=== PATIENT | male | born 1960 | race Caucasian/White ===

== ENCOUNTER 2018-04-02 20:59 | Emergency (ER) | payer MEDICARE, MEDICAID, SELFPAY ==
[2018-04-02] VITALS (19 sets, daily range): BP systolic 141–155; BP diastolic 75–88; PULSE 100–110; RESP 13–38; TEMP 36.8–36.9; O2SAT 96–99
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
[2018-04-02 21:28] LABS: Abs Immature Grans 0.03 k/cumm (0.0-0.09); Absolute Basophil Count 0.14 k/cumm (0.0-0.2); Absolute Eosinophil Count 0.16 k/cumm (0.0-0.7); Basophils % 0.9; HCT 27.2 % (40.0-50.0); HGB 8.6 g/dL (13.5-17.5); Immature Grans % 0.2; Lymphocytes % 11.8; Mean Corp. HGB Concentration 31.6 g/dL (32.0-36.0); Mean Corpuscular Volume 85.5 fL (80-95); Mean Platelet Volume 9.3 fL (8.0-11.0); Monocytes % 7.7; Neutrophils % 78.4; Platelet Count 534 x1000/uL (130-400); RBC 3.18 m/cumm (4.50-6.00); RBC Distribution Width 18.9 % (11.8-14.1); White Blood Cell Count 15.91 k/cumm (4.4-10.8)
[2018-04-02 21:29] LABS: Absolute Lymphocyte Count 1.88 k/cumm (1.2-3.4); Absolute Monocyte Count 1.23 k/cumm (0.11-0.7); Absolute Neutrophil Count 12.47 k/cumm (1.2-6.7)
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
[2018-04-02 21:56] LABS: INR 1.1 (1.0-3.5); PTT Activated 25.2 sec (21.0-31.4); Prothrombin Time 10.9 sec (9.3-10.8)
[2018-04-02 22:32] LABS: ALT 15 U/L (12-78); AST 20 U/L (15-37); Alkaline Phosphatase 165 U/L (46-116); BUN 22 mg/dL (7-18); Bilirubin, Total 0.1 mg/dL (0.2-1.0); Chloride 100 mmol/L (98-107); Estimated GFR 13.12 (mL/min/1.73m2); Glucose 97 mg/dL (70-100); Magnesium 2.5 mg/dL (1.8-2.4); Potassium 3.7 mmol/L (3.5-5.1); Sodium 138 mmol/L (136-145); Total Protein 8.1 g/dL (6.4-8.2)
[2018-04-02 22:39] LABS: CREATININE 4.65 mg/dL (0.70-1.30)
--- NOTE | 2018-04-03 15:28 | PDOC.ERCMPRO ---
Care Management Progress Note 04/03-Dr. Root requested assistance with a PCP f/u in one week for anxiety. Referral faxed to [facility] today.
== END 2018-04-02 23:04 | disposition home or self-care (01) ==
PROVIDERS: Emergency Provider Emergency Medicine; PCP Family Medicine
DX: F41.9 Anxiety disorder, unspecified (principal); R11.0 Nausea; G82.20 Paraplegia, unspecified
CPT/HCPCS: 99283 ×2; 36415; 80053; 83735; 85025; 85610; 85730

== ENCOUNTER 2018-04-11 13:36 | Emergency (ER) | payer MEDICARE, MEDICAID, SELFPAY ==
[2018-04-11] VITALS (53 sets, daily range): BP systolic 94–133; BP diastolic 55–84; PULSE 98–108; RESP 7–27; TEMP 36.7–37.2; O2SAT 97–100
--- NOTE | 2018-04-11 14:07 | DI.REPORT_ITS ---
SYMPTOMS/DIAGNOSIS: ALTERED MENTATION AP AND LATERAL CHEST: Note is made of Hernandez rods in the lower thoracic and lumbar spine. There is a right subclavian indwelling central catheter in position, which is a double -lumen catheter. The heart is not enlarged. The lungs are clear. No pleural effusion seen. CONCLUSION: No evidence of acute disease.
--- NOTE | 2018-04-11 14:12 | ED.GENADUL_ITS ---
Disposition Clinical Impression: Generalized weakness, Confusion Disposition: HOME Instructions: Weakness (ED) Additional Instructions: Please rest over the next few days. Follow-up at dialysis as scheduled. Please follow-up with your primary care physician. Call tomorrow. Return to the emergency department immediately for any worsening or new concerning symptoms. Referrals: Yoselin Sheffield [Primary Care Provider] - Medical Decision Making - Lab Data Laboratory Tests 04/11/18 04/11/18 04/11/18 14:10 14:10 17:36 WBC 11.86 H RBC 3.23 L Hgb 8.6 L Hct 27.9 L MCV 86.4 MCH 26.6 L MCHC 30.8 L RDW 16.0 H Plt Count 436 H MPV 9.8 Immature Gran % 0.8 Neutrophils % 75.1 Lymphocytes % 11.9 Monocytes % 9.4 Eosinophils % 2.4 Basophils % 0.4 Absolute Neutrophils 8.91 H Absolute Lymphocytes 1.41 Absolute Monocytes 1.11 H Absolute Eosinophils 0.28 Absolute Basophils 0.05 Sodium 136 Potassium 3.2 L Chloride 98 Carbon Dioxide 30.5 Anion Gap 7.5 BUN 7 Creatinine 1.58 H Estimated GFR/1.73 m2 45.59 Glucose 154 H Calcium 7.7 L Total Bilirubin 0.2 AST 35 ALT 19 Alkaline Phosphatase 166 H Troponin I < 0.02 < 0.02 Total Protein 8.0 Albumin 2.1 L Results reviewed for labs ordered during visit: Yes - Medical Decision Making 14:15 -- 58-year-old male with multiple chronic medical problems including posttraumatic paraplegia, end-stage renal disease on hemodialysis, osteomyelitis of the hip on IV antibiotics, here with general malaise, generalized weakness after dialysis today. Patient now normotensive. Afebrile. ECG reviewed and interpreted by me: Sinus tachycardia 104 bpm, normal axis, no STEMI, nondiagnostic. Patient did receive IV fluid resuscitation postdialysis. Will hold additional IVF at this time. 16:00 --labs reviewed and nondiagnostic. Suspect electrolyte fluctuations post dialysis. 16:55 --troponin and delta troponin negative. Patient reassessed, he seems much more alert. He does seem quite anxious about being at home and would prefer to be cared for in a long-term care facility. He does have home health and his is a rn telehealth for him. He has dialysis scheduled and is receiving IV antibiotics at dialysis. Apparently there have been attempts made to transfer care to long-term care facility but unfortunately local long-term care facilities have refused patient. Patient is stable for discharge home and does have home services set up. I do think that he may benefit from long-term care facility given his anxiety about living at home and preference. Will involve care management to help arrange timely outpatient follow-up and possible placement in [facility]. History of Present Illness - General Chief complaint: AMS/LOC Stated complaint: CALEX Time Seen by Provider: 04/11/18 13:53 Source: patient, RN notes reviewed Mode of arrival: ambulatory Limitations: no limitations - History of Present Illness Initial comments: 58-year-old male with multiple medical problems including paraplegia, osteomyelitis of the right hip now on IV abx, renal failure, currently on dialysis, here after being sent from dialysis for general malaise. Received call from dialysis center, patient had 2 L removed and then became hypotensive with systolic blood pressure in the 90s. Patient was confused. Patient was resuscitated with 1.5 L of crystalloid. Despite improved blood pressure, patient continues to not feel well. Patient is a poor historian. He denies pain. He specifically notes he just does not feel well. - Related Data Lactose-Reduced Food [Ensure High Protein] 237 ml PO PRN 12/16/15 Cyanocobalamin [Vitamin B-12] 1,000 mcg PO DAILY #90 tab 10/08/16 Calcitriol [Rocaltrol] 0.25 mcg PO DAILY #30 cap 12/29/16 Calcium Acetate [Phoslo Gel Cap] 1,334 mg PO AC #180 cap 12/29/16 Sodium Bicarbonate 650 mg PO TID #60 tab 12/29/16 Venlafaxine HCl [Effexor Xr] 150 mg PO DAILY 08/15/17 Ferrous Sulfate [Iron] 325 mg PO DAILY tab 08/30/17 Ondansetron ODT [Zofran Odt] 4 mg PO Q8H PRN PRN tabef 08/30/17 Acetaminophen [Tylenol] 650 mg [place] Q4H PRN PRN 10/29/17 Buspirone HCl 5 mg PO BID 02/21/18 Gabapentin 300 mg PO HS 02/21/18 Cefpodoxime [Vantin] 200 mg PO DAILY #6 tab 02/27/18 ClonazePAM [KlonoPIN] 0.5 mg PO BID PRN PRN #0 02/27/18 Mupirocin 2% Oint. [Bactroban 2% Ointment] 0 gm TP DAILY #0 tube 02/27/18 LORazepam [Ativan] 1 mg PO Q2H PRN PRN #10 tab 04/02/18 CefTAZidime [Tazicef] 2 gm IV DIRECTED 04/11/18 Vancomycin HCl 500 mg IV DIRECTED 04/11/18 Allergies Allergy/AdvReac Type Severity Reaction Status Date / Time oxycodone Allergy Skin Rash Unverified 04/11/18 13:53 topiramate [From Topamax] AdvReac Severe put me Unverified 04/11/18 13:53 out, couldn't wake me up Review of Systems Constitutional: denies: chills, fever Respiratory: denies: cough, shortness of breath Cardiovascular: denies: chest pain Gastrointestinal: denies: abdominal pain Neurological: weakness (chronic paraplegia), numbness (LEs bilateral) Comment: All other systems reviewed and negative Past Medical History - Past Medical History Medical history: ESRD End-stage renal disease on hemodialysis, parapelgia, medication non-compliance, pressure ulcers, chronic indwelling catheter, ostomy, osteomyelitis Surgical history: other (Colostomy, bone revision due to osteomyelitis, spinal fusion, hip debridement with bone resection, indwelling [place] catheter) - Social History Alcohol use: none Drug use: none General Exam - General Limitations: no limitations General appearance: alert, in no apparent distress - Eye Eye exam: Absent: scleral icterus, conjunctival injection - Respiratory Respiratory exam: Present: normal lung sounds bilaterally - Cardiovascular Cardiovascular Exam: Present: normal rhythm, tachycardia, normal heart sounds - GI/Abdominal GI/Abdominal exam: Present: soft, other (Ostomy present and functioning, suprapubic catheter present and functioning). Absent: distended, tenderness - Extremities Exam Extremities exam: Absent: pedal edema - Neurological Exam Neurological exam: Present: alert, altered (Seems fatigued), oriented X3 - Psychiatric Psychiatric exam: Present: normal affect - Skin Skin exam: Present: warm, dry, other (decubitus ulcer extending deep rt buttock , no discharge) Course Vital Signs - 24 hr 04/11/18 04/11/18 13:46 13:55 Temperature 36.7 C Pulse 104 H Respiratory 16 16 Rate Blood Pressure 115/63 Pulse Oximetry 100
[2018-04-11 14:30] LABS: Absolute Basophil Count 0.05 k/cumm (0.0-0.2); Absolute Lymphocyte Count 1.41 k/cumm (1.2-3.4); Basophils % 0.4; Eosinophils % 2.4; HCT 27.9 % (40.0-50.0); HGB 8.6 g/dL (13.5-17.5); Immature Grans % 0.8; Lymphocytes % 11.9; Mean Corp. HGB Concentration 30.8 g/dL (32.0-36.0); Mean Corpuscular Hemoglobin 26.6 pg (27.0-33.0); Mean Corpuscular Volume 86.4 fL (80-95); Mean Platelet Volume 9.8 fL (8.0-11.0); Monocytes % 9.4; Neutrophils % 75.1; Platelet Count 436 x1000/uL (130-400); RBC 3.23 m/cumm (4.50-6.00); White Blood Cell Count 11.86 k/cumm (4.4-10.8)
[2018-04-11 14:33] LABS: Absolute Eosinophil Count 0.28 k/cumm (0.0-0.7); Absolute Monocyte Count 1.11 k/cumm (0.11-0.7); Absolute Neutrophil Count 8.91 k/cumm (1.2-6.7)
[2018-04-11 14:34] LABS: ALT 19 U/L (12-78); AST 35 U/L (15-37); Albumin 2.1 g/dL (3.4-5.0); Alkaline Phosphatase 166 U/L (46-116); Anion Gap 7.5 mmol/L (3-11); BUN 7 mg/dL (7-18); Bilirubin, Total 0.2 mg/dL (0.2-1.0); CO2 30.5 mmol/L (21.0-32.0); CREATININE 1.58 mg/dL (0.70-1.30); Calcium 7.7 mg/dL (8.5-10.1); Chloride 98 mmol/L (98-107); Estimated GFR 45.59 (mL/min/1.73m2); Glucose 154 mg/dL (70-100); Potassium 3.2 mmol/L (3.5-5.1); Sodium 136 mmol/L (136-145)
[2018-04-11 14:36] LABS: Troponin I < 0.02 ng/mL (0.00-0.06)
--- NOTE | 2018-04-11 16:00 | NUR.NOTE ---
Nursing Note: Patients sister reports that when patient was having trouble at the Dialysis center he was having poor speech, and a head twitch that he hasn't had before. She said that he couldn't explain what was wrong. She stated when she was going to drop him off for his treatment he was complaining of being tired. In regards to his antibiotic treatment, they are treating a pelvic osteo that was started at the beginning of the month and is supposed to go until the . He gets them every other day with his treatments.
[2018-04-11 18:01] LABS: Troponin I < 0.02 ng/mL (0.00-0.06)
[2018-04-11] MEDS: traMADol 50 MG TAB PO (20:36)
[2018-04-11] MEDS: LORazepam 1 MG TAB PO (20:36)
--- NOTE | 2018-04-12 12:37 | PDOC.ERCMPRO ---
Care Management Progress Note 04/12-Dr. Ruma Pearce requested assistance with a PCP f/u as soon as possible for general malaise, general weakness post dialysis and ?placement. Yoselin Sheffield PCP. Referral faxed to [facility] today.
== END 2018-04-11 20:58 | disposition home or self-care (01) ==
LOC: ER 07-15 22:51
PROVIDERS: Emergency Provider Student in an Organized Health Care Education/Training Program; PCP Family Medicine
DX: R53.1 Weakness (principal); R41.0 Disorientation, unspecified; N18.6 End stage renal disease; Z99.2 Dependence on renal dialysis; Z96.0 Presence of urogenital implants
CPT/HCPCS: 71046; 93005; 99285 ×2; 36415; 80053; 84484; 85025; 93010

== ENCOUNTER 2018-08-05 14:52 | Emergency (ER) | payer MEDICARE, MEDICAID, SELFPAY ==
[2018-08-05 14:55] VITALS: BP 140/77; PULSE 77; RESP 20; TEMP 36.8; O2SAT 100
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
[2018-08-05 16:36] VITALS: RESP 18
[2018-08-05] MEDS: Normal Saline Flush 10 ML SYR IVP (16:45)
[2018-08-05] MEDS: Normal Saline 1,000 ML 1000 ML IV (16:45)
[2018-08-05 16:58] LABS: Lactate-non-spesis 0.8 mmol/L (0.6-1.4)
[2018-08-05 17:13] LABS: HCT 34.9 % (40.0-50.0); Mean Corp. HGB Concentration 31.5 g/dL (32.0-36.0); Mean Corpuscular Hemoglobin 26.2 pg (27.0-33.0); Mean Corpuscular Volume 83.1 fL (80-95); Mean Platelet Volume 9.4 fL (8.0-11.0); Platelet Count 363 x1000/uL (130-400); RBC Distribution Width 21.2 % (11.8-14.1); White Blood Cell Count 10.07 k/cumm (4.4-10.8)
[2018-08-05 17:21] LABS: ALT 13 U/L (12-78); AST 14 U/L (15-37); Albumin 2.6 g/dL (3.4-5.0); Alkaline Phosphatase 175 U/L (46-116); Anion Gap 8.5 mmol/L (3-11); BUN 37 mg/dL (7-18); Bilirubin, Total 0.3 mg/dL (0.2-1.0); CO2 32.5 mmol/L (21.0-32.0); Calcium 8.7 mg/dL (8.5-10.1); Chloride 95 mmol/L (98-107); Estimated GFR 10.74 (mL/min/1.73m2); Glucose 79 mg/dL (70-100); Potassium 4.2 mmol/L (3.5-5.1); Sodium 136 mmol/L (136-145); Total Protein 8.4 g/dL (6.4-8.2)
[2018-08-05 17:23] LABS: CREATININE 5.53 mg/dL (0.70-1.30)
[2018-08-05 17:41] LABS: Bilirubin Negative (Negative); Blood Large (Negative); Clarity Cloudy; Glucose Negative (Negative); Ketones Negative (Negative); Leukocyte Esterase Moderate (Negative); Nitrite Negative (Negative); Urobilinogen 0.2 EU/dL (Up TO 0.2); pH 7.5 (5-8)
[2018-08-05 17:48] LABS: Bacteria Many HPF (Negative); WBC >50 HPF (0-5)
[2018-08-05 17:50] LABS: C & S Indicated? Yes
[2018-08-05] MEDS: Cephalexin 500 MG CAP PO ×2 (18:36→19:20)
[2018-08-05 19:19] VITALS: BP 155/85; PULSE 85; RESP 18; TEMP 36.4; O2SAT 100
== END 2018-08-05 19:30 | disposition home or self-care (01) ==
PROVIDERS: Emergency Provider Physician Assistant; PCP Family Medicine
DX: N39.0 Urinary tract infection, site not specified (principal); R31.9 Hematuria, unspecified; Z96.0 Presence of urogenital implants; G82.20 Paraplegia, unspecified; N18.6 End stage renal disease; Z99.2 Dependence on renal dialysis
CPT/HCPCS: 36415; 80053; 85027; 87077; 96360; 99284; 81003; 81015; 83605; 87086; 87186

== ENCOUNTER 2018-10-18 15:43 | Outpatient (REF) | payer MEDICARE, MEDICAID, SELFPAY | END 2018-10-18 16:03 | LOC: NCHCN 15:43 | PROVIDERS: PCP Family Medicine; Visit Provider Family Medicine | DX: N39.0 Urinary tract infection, site not specified (principal) | CPT/HCPCS: 87077; 87086; 87186 ==

== ENCOUNTER 2018-10-19 16:18 | Emergency (ER) | payer MEDICARE, MEDICAID, SELFPAY ==
[2018-10-19] VITALS (9 sets, daily range): BP systolic 160–165; BP diastolic 87–92; PULSE 88–108; RESP 16; TEMP 37; O2SAT 98–99
--- NOTE | 2018-10-19 17:02 | DI.COMBO_ITS ---
SYMPTOM/DIAGNOSIS: HEADACHE, HYPERTENSION NONCONTRAST HEAD CT: No intracranial hemorrhage, mass or infarct is seen. The ventricles are normal in size. There is no evidence of skull fracture. The visualized portions of the sinuses and mastoid air cells appear clear. IMPRESSION: Negative head CT. AP AND LATERAL CHEST: Comparison is made with 04/11/18. The heart size is normal. A central venous catheter is again noted. Rods are seen in the thoracolumbar spine. The lungs appear clear. No mass, infiltrate or effusion is seen. IMPRESSION: No acute abnormality.
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
[2018-10-19 17:37] LABS: Abs Immature Grans 0.01 k/cumm (0.0-0.09); Absolute Basophil Count 0.04 k/cumm (0.0-0.2); Absolute Lymphocyte Count 1.63 k/cumm (1.2-3.4); Absolute Monocyte Count 0.44 k/cumm (0.11-0.7); Absolute Neutrophil Count 4.33 k/cumm (1.2-6.7); Basophils % 0.6; Eosinophils % 5.8; HCT 37.6 % (40.0-50.0); HGB 12.1 g/dL (13.5-17.5); Immature Grans % 0.1; Lymphocytes % 23.8; Mean Corp. HGB Concentration 32.2 g/dL (32.0-36.0); Mean Corpuscular Hemoglobin 28.5 pg (27.0-33.0); Mean Corpuscular Volume 88.7 fL (80-95); Mean Platelet Volume 8.7 fL (8.0-11.0); Monocytes % 6.4; Neutrophils % 63.3; Platelet Count 279 x1000/uL (130-400); RBC 4.24 m/cumm (4.50-6.00); RBC Distribution Width 14.9 % (11.8-14.1); White Blood Cell Count 6.85 k/cumm (4.4-10.8)
[2018-10-19 17:49] LABS: ALT 15 U/L (12-78); AST 20 U/L (15-37); Albumin 2.5 g/dL (3.4-5.0); Alkaline Phosphatase 183 U/L (46-116); Anion Gap 1.8 mmol/L (3-11); BUN 5 mg/dL (7-18); Bilirubin, Total 0.2 mg/dL (0.2-1.0); CO2 38.2 mmol/L (21.0-32.0); Chloride 99 mmol/L (98-107); Estimated GFR 34.74 (mL/min/1.73m2); Glucose 84 mg/dL (70-100); Magnesium 1.9 mg/dL (1.8-2.4); Potassium 3.8 mmol/L (3.5-5.1); Sodium 139 mmol/L (136-145); Total Protein 7.9 g/dL (6.4-8.2); Troponin I < 0.02 ng/mL (0.00-0.06)
--- NOTE | 2018-10-19 17:59 | DI.VRAD_ITS ---
EXAM: CT Head Without Contrast EXAM DATE/TIME: 10/19/2018 5:05 PM CLINICAL HISTORY: 58 years old, male; Pain; Headache; Patient HX: Paraplegic, headache, elevated BP TECHNIQUE: Axial computed tomography images of the head/brain without contrast. Coronal and sagittal reformatted images were created and reviewed. STROKE PROTOCOL was implemented. COMPARISON: No relevant prior studies available. FINDINGS: Brain: No acute intracerebral abnormality or injury. Normal brain. [place] Stroke Program Early CT Score (ASPECTS score) = 10. Ventricles: Normal. No ventriculomegaly. Bones/joints: Unremarkable. No acute fracture. Sinuses: Visualized sinuses are unremarkable. No acute sinusitis. Mastoid air cells: Visualized mastoid air cells are unremarkable. No mastoid effusion. Soft tissues: Unremarkable. IMPRESSION: 1. No acute intracerebral abnormality or injury. 2. Normal brain. 3. [place] Stroke Program Early CT Score (ASPECTS score) = 10. Dictated and Authenticated by: rOlando Gonzalez MD. Ordering:EMEKA Breaux MD
--- NOTE | 2018-10-19 18:04 | DI.VRAD_ITS ---
EXAM: XR Chest, 2 Views EXAM DATE/TIME: 10/19/2018 5:05 PM CLINICAL HISTORY: 58 years old, male; Signs and symptoms; Other: Headache; Patient HX: High BP TECHNIQUE: XR of the chest, 2 views. COMPARISON: CR CHEST 2 VIEWS PA,LAT 04/11/2018 2:40 PM FINDINGS: Tubes, catheters and devices: A right internal jugular dialysis catheter is present with the distal tip of the catheter in the right atrium. Posterior transpediculate fixation screws and rods are seen in the lumbosacral junction as seen previously. Lungs: Comparison to the previous chest radiograph from 04/11/2018 shows no significant interval change. No acute cardiopulmonary disease evident. Pleural space: Unremarkable. No pleural effusion. No pneumothorax. Heart/Mediastinum: See Tubes, Catheters And Devices Finding. Bones/joints: Unremarkable. IMPRESSION: 1. Comparison to the previous chest radiograph from 04/11/2018 shows no significant interval change. No acute cardiopulmonary disease evident. 2. A right internal jugular dialysis catheter is present with the distal tip of the catheter in the right atrium. Posterior transpediculate fixation screws and rods are seen in the lumbosacral junction as seen previously. Dictated and Authenticated by: Orlando Gonzalez MD. Ordering:EMEKA Breaux MD
[2018-10-19] MEDS: Acetaminophen 500 MG TAB 1000 MG PO (18:28)
[2018-10-19] MEDS: Sulfameth/Trimeth DS TAB 1 TAB PO (19:39)
== END 2018-10-19 20:31 | disposition home or self-care (01) ==
PROVIDERS: Emergency Provider Physician Assistant; PCP Family Medicine
DX: I12.0 Hypertensive chronic kidney disease with stage 5 chronic kidney disease or end stage renal disease (principal); R51 Headache; N39.0 Urinary tract infection, site not specified; B96.1 Klebsiella pneumoniae [K. pneumoniae] as the cause of diseases classified elsewhere; N18.6 End stage renal disease; B96.4 Proteus (mirabilis) (morganii) as the cause of diseases classified elsewhere; Z99.2 Dependence on renal dialysis
CPT/HCPCS: 36415; 80053; 99284; 70450; 71046; 83735; 84484; 85025

== ENCOUNTER 2018-11-20 13:17 | Outpatient (REF) | payer MEDICARE, MEDICAID, SELFPAY | END 2018-11-20 13:37 | LOC: NCHCN 13:17 | PROVIDERS: PCP Family Medicine; Visit Provider Family Medicine | DX: N18.6 End stage renal disease (principal); G82.20 Paraplegia, unspecified; N31.9 Neuromuscular dysfunction of bladder, unspecified | CPT/HCPCS: 87077; 87086; 87186 ==

== ENCOUNTER 2019-01-01 13:11 | Outpatient (REF) | payer MEDICARE, MEDICAID, SELFPAY | END 2019-01-01 13:31 | LOC: NCHCN 13:11 | PROVIDERS: PCP Family Medicine; Visit Provider Family Medicine | DX: L08.9 Local infection of the skin and subcutaneous tissue, unspecified (principal) | CPT/HCPCS: 87070; 87205 ==

== ENCOUNTER 2019-01-21 11:36 | Outpatient (REF) | payer MEDICARE, MEDICAID, SELFPAY | END 2019-01-21 11:56 | LOC: NCHCN 11:36 | PROVIDERS: PCP Family Medicine; Visit Provider Family Medicine | DX: N39.0 Urinary tract infection, site not specified (principal) | CPT/HCPCS: 87086 ==

== ENCOUNTER 2019-01-26 11:42 | Outpatient (REF) | payer MEDICARE, SELFPAY | END 2019-01-26 12:02 | LOC: NCHCN 11:42 | PROVIDERS: PCP Family Medicine; Visit Provider Family Medicine | DX: L89.893 Pressure ulcer of other site, stage 3 (principal) | CPT/HCPCS: 87077; 87070; 87186; 87205 ==

== ENCOUNTER 2019-01-28 16:09 | Emergency (ER) | payer MEDICARE, MEDICAID, SELFPAY ==
--- NOTE | 2019-01-28 16:41 | NUR.NOTE ---
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
[2019-01-28 16:44] VITALS: BP 129/72; PULSE 107; RESP 16; TEMP 36.7; O2SAT 100
--- NOTE | 2019-01-28 16:50 | ED.GENADUL_ITS ---
Discharge Plan Disposition Patient Disposition: HOME Condition: Good Discharge Details Chief Complaint: GenMedical Clinical Impression: Skin ulcer of right knee Primary Care Provider: Yoselin Sheffield ED Provider: Fly Freedman Home Meds and New Rx's Prescriptions: No Action Ensure High Protein 237 ML liquid 237 ml PO PRN RF: 0 cyanocobalamin (vitamin B-12) [Vitamin B-12] 500 MCG tablet 1,000 mcg PO DAILY Qty: 90 RF: 0 venlafaxine [Effexor XR] 150 MG capsule,extended release 24hr 150 mg PO DAILY RF: 0 ferrous sulfate 325 MG tablet 325 mg PO DAILY RF: 0 ondansetron 4 MG tablet,disintegrating 4 mg PO Q8H PRN PRNRF: 0 Acephen 325 MG suppository [address] Q4H PRN PRNRF: 0 buspirone 5 MG tablet 5 mg PO BID RF: 0 gabapentin 300 MG capsule 300 mg PO HS RF: 0 cefpodoxime 200 MG tablet 200 mg PO DAILY Qty: 6 RF: 0 mupirocin 22 GM ointment Topical DAILY Qty: 0 RF: 0 clonazepam 1 MG tablet 0.5 mg PO BID PRN PRNQty: 0 RF: 0 amlodipine [Norvasc] 5 mg tablet 5 mg PO DAILY Qty: 7 RF: 0 calcitriol 0.25 MCG capsule 0.25 mcg PO DAILY Qty: 30 RF: 0 calcium acetate 667 MG capsule 1,334 mg PO AC Qty: 180 RF: 0 sodium bicarbonate 650 MG tablet 650 mg PO TID Qty: 60 RF: 0 lorazepam 1 MG tablet 1 mg PO Q2H PRN PRN (Reason: Anxiety) Qty: 10 RF: 0 Discharge Instructions Instructions: Chronic Wound Care (ED) Additional Instructions: Please follow-up closely with your primary care provider and evidence specialist. The nurses will come to your house daily to change your bandage and clean your wound. Please make absolute sure that your leg does not rest up against the metal post on your wheelchair. Continue your Cipro until you complete the course. If you notice any worsening of your symptoms, or any new symptoms such as vomiting, diarrhea, fever, chills, shortness of breath, chest pain, numbness, weakness, or fainting , please return immediately to the emergency department for reevaluation. Please follow up with your primary care provider as soon as possible for reassessment and reevaluation. As always, it was a pleasure participating in your medical care today. Referrals: Yoselin Sheffield [Primary Care Provider] - Medical Decision Making This is a 59-year-old male who presents today for evaluation of a right knee ulcer. The patient has had it for the last 2 to 3 weeks, he denies any significant worsening, redness, fever or chills. He was started on Cipro by his PCP 5 days ago, wound cultures have returned MRSA. He is family doctor contacted him and recommended he go to dialysis and come into the ER for eventual transfer to [facility]. Currently the patient denies any red flags of fever or chills. He does demonstrate notable chronic right knee ulcer. We will perform a laboratory work-up to evaluate for acute worsening or signs of sepsis. However currently he appears to have a notable chronic component to the ulcer without any acute component. 7:47 PM Laboratory work-up shows no elevated white count, no bandemia, renal function stable in light of his dialysis. Electrolytes normal. CRP is elevated at 5.26, and ESR is elevated at 113. No bandemia. No significant left shift. X-ray results show no evidence of osteomyelitis. On inspection the wound appears to be a chronic pressure-like ulcer. I contacted Dr. Meade and discussed the c ase with him, labs were reviewed, and I sent images of the wound to Dr. Meade which he reviewed. He agrees that it appears to be a chronic wound without an acute component. Bedside exam continues to demonstrate no evidence of fluctuance or significant edema, x-ray shows no evidence of significant effusion. Dr. Meade recommends aggressive wound care on an outpatient basis. He does not recommend any new antibiotics, but states that since it started the Cipro, that he just continue this until completion. We have contacted case management discussed the case with them. They will have a person come daily to his house for regular wound care and bandage changes. We have aggressively cleaned it and washed it here, and re-bandage it. Patient states that he continues to feel well does not feel ill. I do not feel that he requires at this time inpatient admission for IV antibiotics. Patient will be discharged home with close orthopedic follow-up as well as close follow-up with his PCP, and regular aggressive wound control. I have extensively reviewed the treatment plan and discharge instructions with the patient. I have addressed all patient concerns at this time. The patient was made aware of what symptoms to monitor for that would warrant a return to the emergency department. Discussed the plan with the patient, they demonstrate verbal understanding and agreement with our assessment and plan at this time. Exam(s) EXAM: XR Right Knee EXAM DATE/TIME: 01/28/2019 18:12 CLINICAL HISTORY: 59 years old, male; Condition or disease; Other: MRSA, chronic wound R knee; Prior surgery TECHNIQUE: Imaging protocol: XR Right knee. Views: 3 views. COMPARISON: CR (PELVIS, RT) 09/27/2016 17:13 FINDINGS: Bones/joints: The bones are demineralized. No acute fracture allowing for demineralization. The patella is situated abnormally low. Probable disruption of the quadriceps tendon. Normal alignment of the tibia fibula and femur. Scattered mild degenerative changes. Soft tissues: No specific focal erosions are identified to suggest osteomyelitis. No significant effusion is present. Vasculature: Atherosclerosis. IMPRESSION: 1. The patella is situated abnormally low. Suspect disruption of the quadriceps tendon. Given absence of a significant effusion suspect this is chronic. 2. No specific focal erosions are identified radiographically to suggest osteomyelitis. Dictated and Authenticated by: Pilar Centeno MD. Ordering:ALFONSO Bill MD HPI General Date/Time Provider Initiated Documentation: 01/28/19 16:40 . HPI Narrative: This is a 59-year-old male with a past medical history of dialysis, paraplegia, uterine chronic renal failure, with a chronic ulcer on his right knee, who presents today after being sent in by his primary care provider for potential admission IV antibiotics. Patient states that for the last 2 to 3 weeks he has had a small ulcer on his right knee, he has had no pain there is since he is normally a sensate, in that region. He did go to see his primary care provider, where he was started on Cipro for the last 5 days. Wound cultures did return for MRSA, and the patient was told to go to dialysis and then come to the ER for potential transfer to [facility] for IV antibiotics. Currently the patient denies any fever, chills, chest pain, shortness of breath, numbness tingling or weakness aside from his chronic baseline of paraplegia. He denies any other acute changes. He does state that he has been taking the Cipro as directed. He denies any other modifying factors or complaints currently. Related Data Home Medications Medication Instructions Recorded Confirmed Ensure High Protein 237 ml PO PRN 12/16/15 10/19/18 cyanocobalamin (vitamin B-12) 1,000 mcg PO DAILY #90 tab 10/08/16 10/19/18 [Vitamin B-12] calcitriol 0.25 mcg PO DAILY #30 cap 12/29/16 10/19/18 calcium acetate 1,334 mg PO AC #180 cap 12/29/16 10/19/18 sodium bicarbonate 650 mg PO TID #60 tab 12/29/16 10/19/18 venlafaxine [Effexor XR] 150 mg PO DAILY 08/15/17 10/19/18 ferrous sulfate 325 mg PO DAILY tab 08/30/17 10/19/18 ondansetron 4 mg PO Q8H PRN PRN tabef 08/30/17 10/19/[address] Q4H PRN PRN 10/29/17 10/19/18 buspirone 5 mg PO BID 02/21/18 10/19/18 gabapentin 300 mg PO HS 02/21/18 10/19/18 cefpodoxime 200 mg PO DAILY #6 tab 02/27/18 10/19/18 clonazepam 0.5 mg PO BID PRN PRN #0 02/27/18 10/19/18 mupirocin 0 gm TOPICAL DAILY #0 tube 02/27/18 10/19/18 lorazepam 1 mg PO Q2H PRN PRN #10 tab 04/02/18 10/19/18 amlodipine [Norvasc] 5 mg PO DAILY #7 tab 10/19/18 Previous Rx's Medication Instructions Recorded cyanocobalamin (vitamin B-12) 1,000 mcg PO DAILY #90 tab 10/08/16 [Vitamin B-12] calcitriol 0.25 mcg PO DAILY #30 cap 12/29/16 calcium acetate 1,334 mg PO AC #180 cap 12/29/16 sodium bicarbonate 650 mg PO TID #60 tab 12/29/16 ferrous sulfate 325 mg PO DAILY tab 08/30/17 ondansetron 4 mg PO Q8H PRN PRN tabef 08/30/17 cefpodoxime 200 mg PO DAILY #6 tab 02/27/18 clonazepam 0.5 mg PO BID PRN PRN #0 02/27/18 mupirocin 0 gm TOPICAL DAILY #0 tube 02/27/18 lorazepam 1 mg PO Q2H PRN PRN #10 tab 04/02/18 amlodipine [Norvasc] 5 mg PO DAILY #7 tab 10/19/18 Allergies Allergy/AdvReac Type Severity Reaction Status Date / Time oxycodone Allergy Skin Rash Unverified 10/19/18 16:33 topiramate [From Topamax] AdvReac Severe put me Unverified 10/19/18 16:33 out, couldn't wake me up General Stated Complaint: GenMedical AMY: 4 Review of Systems Review of Systems All systems reviewed & are unremarkable except as noted in HPI and below PFSH Social History Smoking/Tobacco Use Status: Former Tobacco Use Drug use: Never Do you feel safe in your relationship?: Yes Exam Narrative Exam Narrative: 1.Const: Well-nourished, Well-developed, appearing stated age 2.Eyes: PERRL, no conjunctival injection, and symmetrical lids. 3.ENT: Atraumatic external nose and ears. Moist MM. Neck: Symmetric, trachea midline, No thyromegaly. 4.CVS: +S1/S2, No murmurs or gallops. Peripheral pulses 2+ and equal in all extremities. Brisk capillary refill in all extremities. 5.RESP: Unlabored respiratory effort. Clear to auscultation bilaterally. No wheezes rales or rhonchi 6.GI: Soft, Nontender/Nondistended, No hepatosplenomegaly. No guarding or rebound. 7.MSK: Normocephalic, there is evidence of a chronic right sided knee ulcer, no significant erythema. Ulcer is roughly 3.5 cm x 3.5 cm in diameter no active drainage. 8.Skin: Warm, Dry. Please see musculoskeletal for description of skin ulcer. 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 No no sensation in his lower extremities c hronically, no movement of his lower extremities chronically. 10.Psych: (AAO) x3. Appropriate mood and affect Course Vital Signs Temperature 36.7 C 01/28/19 16:44 Pulse 107 H 01/28/19 16:44 Respiratory Rate 16 01/28/19 16:44 Blood Pressure 129/72 01/28/19 16:44 Pulse Oximetry 100 01/28/19 16:44 Temperature 36.7 C 01/28/19 16:44 Temperature Source Skin 01/28/19 16:44 Pulse 107 H 01/28/19 16:44 Respiratory Rate 16 01/28/19 16:44 Blood Pressure 129/72 01/28/19 16:44 Blood Pressure Position Sitting 01/28/19 16:44 Pulse Oximetry 100 01/28/19 16:44 Oxygen Delivery Method Room Air 01/28/19 16:44 Oxygen Flow Rate 0 01/28/19 16:44 Pain Level 6 01/28/19 16:44 Lab/Test Results Lab/Test Results: 01/28/19 16:47 Blood Blood Culture - Pending 01/28/19 16:47 Blood Blood Culture - Pending
[2019-01-28 17:16] VITALS: RESP 20
[2019-01-28 17:17] LABS: Lactate-non-spesis 1.3 mmol/l (0.6-1.4)
[2019-01-28 17:30] LABS: Abs Immature Grans 0.02 k/cumm (0.0-0.09); Absolute Basophil Count 0.05 k/cumm (0.0-0.2); Absolute Eosinophil Count 0.37 k/cumm (0.0-0.7); Absolute Monocyte Count 0.87 k/cumm (0.11-0.7); Absolute Neutrophil Count 6.81 k/cumm (1.2-6.7); Basophils % 0.5; Eosinophils % 3.7; HCT 33.9 % (40.0-50.0); HGB 11.1 g/dL (13.5-17.5); Immature Grans % 0.2; Mean Corp. HGB Concentration 32.7 g/dL (32.0-36.0); Mean Corpuscular Hemoglobin 28.8 pg (27.0-33.0); Mean Corpuscular Volume 87.8 fL (80-95); Mean Platelet Volume 9.4 fL (8.0-11.0); Monocytes % 8.7; Neutrophils % 67.9; Platelet Count 377 x1000/uL (130-400); RBC 3.86 m/cumm (4.50-6.00); RBC Distribution Width 14.5 % (11.8-14.1); White Blood Cell Count 10.02 k/cumm (4.4-10.8)
[2019-01-28 17:38] LABS: ALT 17 U/L (12-78); AST 19 U/L (15-37); Alkaline Phosphatase 179 U/L (46-116); Anion Gap 6.4 mmol/L (3-11); BUN 14 mg/dL (7-18); Bilirubin, Total 0.2 mg/dL (0.2-1.0); C-Reactive Protein 5.26 mg/dL (0.0-0.3); CO2 33.6 mmol/L (21.0-32.0); CREATININE 2.64 mg/dL (0.70-1.30); Chloride 94 mmol/L (98-107); Estimated GFR 25.12 (mL/min/1.73m2); Glucose 75 mg/dL (70-100); Potassium 3.5 mmol/L (3.5-5.1); Sodium 134 mmol/L (136-145); Total Protein 9.5 g/dL (6.4-8.2)
[2019-01-28 18:08] LABS: ESR 113 MM/HR (1-20)
--- NOTE | 2019-01-28 18:11 | DI.RAD_ITS ---
SYMPTOM/DIAGNOSIS: CHRONIC WOUND RT KNEE,MRSA RIGHT KNEE: The bones are intact. No acute fracture or dislocation is identified. The bones appear osteopenic. The patella seems abnormally inferiorly located on the lateral view. This may be due to quadriceps tendon rupture. No significant soft tissue edema is seen. No effusion is present. This likely is chronic. No erosive or destructive changes are seen to suggest osteomyelitis . Vascular calcifications are seen in the soft tissues. IMPRESSION: No radiographic evidence to suggest osteomyelitis. Inferiorly situated patella. This may represent a quadriceps tendon rupture. Lack of edema or effusion suggests chronic injury.
--- NOTE | 2019-01-28 18:59 | DI.VRAD_ITS ---
EXAM: XR Right Knee EXAM DATE/TIME: 01/28/2019 18:12 CLINICAL HISTORY: 59 years old, male; Condition or disease; Other: MRSA, chronic wound R knee; Prior surgery TECHNIQUE: Imaging protocol: XR Right knee. Views: 3 views. COMPARISON: CR (PELVIS, RT) 09/27/2016 17:13 FINDINGS: Bones/joints: The bones are demineralized. No acute fracture allowing for demineralization. The patella is situated abnormally low. Probable disruption of the quadriceps tendon. Normal alignment of the tibia fibula and femur. Scattered mild degenerative changes. Soft tissues: No specific focal erosions are identified to suggest osteomyelitis. No significant effusion is present. Vasculature: Atherosclerosis. IMPRESSION: 1. The patella is situated abnormally low. Suspect disruption of the quadriceps tendon. Given absence of a significant effusion suspect this is chronic. 2. No specific focal erosions are identified radiographically to suggest osteomyelitis. Dictated and Authenticated by: Pilar Centeno MD. Ordering:ALFONSO Bill MD
--- NOTE | 2019-01-28 19:50 | PDOC.ERCMPRO ---
- If Service Date Differs Date of service: 01/28/19 Time of Service: 19:50 Care Management Progress Note CM contacted by r/t Timmy's wound management and need for home health. CM contacted [facility] and spoke with Jovanni GARCIA who cares for Timmy's wounds at home. He currently is receiving wound management three times a week through Home health. Timmy does not have an acute reason to be admitted to the hospital and would need to continue management of his wounds by pcp and [facility]. would like the patient to have daily wound changes. CM notified home health JOSE Baig reports Timmy will have home health visit on Sunday12/29/18. CM to fax over discharge summary with request for daily dressing changes. CM also will contact primary care provider office and request follow up with patient and [facility]. CM reviewed plan with , Timmy will discharge from the ED this evening. P: Home health services resumption with increase in dressing changes to daily from three times a week and follow up with primary care provider for ongoing wound management.
--- NOTE | 2019-01-28 19:56 | CMPROGNOTE_ITS ---
- If Service Date Differs Date of service: 01/28/19 Time of Service: 19:50 Care Management Progress Note CM contacted by r/t Timmy's wound management and need for home health. CM contacted [facility] and spoke with Jovanni GARCIA who cares for Timmy's wounds at home. He currently is receiving wound management three times a week through Home health. Timmy does not have an acute reason to be admitted to the hospital and would need to continue management of his wounds by pcp and [facility]. would like the patient to have daily wound changes. CM notified home health JOSE Baig reports Timmy will have home health visit on Sunday12/29/18. CM to fax over discharge summary with request for daily dressing changes. CM also will contact primary care provider office and request follow up with patient and [facility]. CM reviewed plan with , Timmy will discharge from the ED this evening. P: Home health services resumption with increase in dressing changes to daily from three times a week and follow up with primary care provider for ongoing wound management.
== END 2019-01-28 21:18 | disposition home or self-care (01) ==
PROVIDERS: Emergency Provider Student in an Organized Health Care Education/Training Program; PCP Family Medicine
DX: L97.119 Non-pressure chronic ulcer of right thigh with unspecified severity (principal); B95.62 Methicillin resistant Staphylococcus aureus infection as the cause of diseases classified elsewhere; G82.20 Paraplegia, unspecified; N18.6 End stage renal disease; Z99.2 Dependence on renal dialysis
CPT/HCPCS: 36415; 73562; 80053; 85652; 87040; 96365; 96366; 99284; 83605; 85025; 86140

== ENCOUNTER 2019-02-04 00:50 | Emergency (ER) | payer MEDICARE, MEDICAID, SELFPAY ==
[2019-02-04] VITALS (50 sets, daily range): BP systolic 133–156; BP diastolic 60–77; PULSE 56–95; RESP 15–29; TEMP 37; O2SAT 93–100
--- NOTE | 2019-02-04 00:40 | W.ED.GENAD ---
Discharge Plan Disposition Patient Disposition: SARITA BENITEZ ([facility]) Condition: Critical Discharge Details Chief Complaint: GenMedical Clinical Impression: Acute hyperkalemia, Renal failure, Fatigue, Acute electrocardiogram changes, Community acquired pneumonia Primary Care Provider: Yoselin Sheffield ED Provider: Fly Freedman Home Meds and New Rx's Prescriptions: No Action Ensure High Protein 237 ML liquid 237 ml PO PRN RF: 0 cyanocobalamin (vitamin B-12) [Vitamin B-12] 500 MCG tablet 1,000 mcg PO DAILY Qty: 90 RF: 0 venlafaxine [Effexor XR] 150 MG capsule,extended release 24hr 150 mg PO DAILY RF: 0 ferrous sulfate 325 MG tablet 325 mg PO DAILY RF: 0 ondansetron 4 MG tablet,disintegrating 4 mg PO Q8H PRN PRNRF: 0 Acephen 325 MG suppository 650 mg GA Q4H PRN PRNRF: 0 buspirone 5 MG tablet 5 mg PO BID RF: 0 gabapentin 300 MG capsule 300 mg PO HS RF: 0 cefpodoxime 200 MG tablet 200 mg PO DAILY Qty: 6 RF: 0 mupirocin 22 GM ointment Topical DAILY Qty: 0 RF: 0 clonazepam 1 MG tablet 0.5 mg PO BID PRN PRNQty: 0 RF: 0 amlodipine [Norvasc] 5 mg tablet 5 mg PO DAILY Qty: 7 RF: 0 calcitriol 0.25 MCG capsule 0.25 mcg PO DAILY Qty: 30 RF: 0 calcium acetate 667 MG capsule 1,334 mg PO AC Qty: 180 RF: 0 sodium bicarbonate 650 MG tablet 650 mg PO TID Qty: 60 RF: 0 lorazepam 1 MG tablet 1 mg PO Q2H PRN PRN (Reason: Anxiety) Qty: 10 RF: 0 Medical Decision Making Upon my evaluation, this patient had a high probability of imminent or life-threatening deterioration, which required my direct attention, intervention, and personal management. I have personally provided 120 minutes of critical care time exclusive of time spent on separately billable procedures. Time includes review of laboratory data, radiology results, discussion with consultants, and monitoring for potential decompensation. Interventions were performed as documented above. 1:20 AM This is a 59-year-old male with a past medical history of chronic kidney disease, hypertension, tobacco abuse, paraplegia of his lower extremities, and chronic wound ulcers. He presents today for fatigue. He states that this morning he woke up and felt very tired, and generally weak. He felt like there was 100 pound weight over his entire body. He denies any chest pain or chest tightness or focal chest heaviness. He denies any shortness of breath or pleuritic chest pain. Physical exam demonstrates multiple chronic leg in decubitus ulcers, mild left lower quadrant tenderness. Benign lung sounds. Exam is otherwise nonfocal. EKG does demonstrate evidence of notable ST segment abnormality in V2 and V1, especially when compared to prior EKGs. Slight peaking of T waves. Slightly concerning for a Brugada-like component. Hyperkalemia is also on the differential. The patient has no chest pain, arm pain or neck pain. No focal chest heaviness. Although there is elevation in V2, it is not into subsequent contiguous leads, nor is there any reciprocal ST depression. We will review the EKG with [facility] cardiology. We will get a laboratory work-up to evaluate for significant electrolyte abnormality, cardiac changes, or infectious components. Of note his dialysis is Sunday. He missed last Sunday's dialysis. 1:45am Time it is called back and I discussed the case with Dr. Jernigan, the on-call cheerleading coach. He too feels that it is an atypical EKG with a certain Brugada-like component. It does not meet for STEMI. And in the absence of chest pain he does not recommend any current aggressive cardiac intervention. He does recommend serial EKGs and further cardiac work-up. We are still pending troponin and additional labs at this time. 2:10 AM Laboratory work-up is just returned, and potassium is notably elevated at 8, so would correlate well with EKG findings in conjunction with his missed dialysis. We will start bicarb, calcium gluconate, albuterol, and insulin. I imagine this is most likely the cause of his fatigue. D-dimer has come back elevated at 3500, we will get a CT scan to rule out PE, and further evaluate his abdominal pain. Patient will require transfer to an outlying facility secondary to his needs for dialysis, as well as his electrolyte abnormalities. Pending CT results will contact [facility] for transfer. 2:37 AM The remainder of his laboratory work-up has returned, glucose is notably low at 61, proBNP is elevated at 15,000, creatinine is 8.7, sodium is low at 125. Troponin is less than 0.02. We will give an amp of D50, and start D5 half normal at 100 mL's per hour. Pending CT results still. 3:[address] results, however review of CT does show evidence of right-sided pneumonia. We will start Rocephin and doxycycline. Also of note the patient is requesting transfer to the [facility] for [facility] as he has most of his care at the [facility]. 3:[address] scan shows evidence of pneumonia, no evidence of PE though per virtual radiologist. Scattered pulmonary nodules. CT abdomen shows no evidence of severe acute process. There is concern for potential hip osteomyelitis but feel that this is less likely in regards to any acute etiology. Repeat EKG demonstrates notable improvement after medication administration. We did contact the [facility]'s, and I spoke with Dr. Faith, she agreed on the need for transfer. She did recommend giving 120 mg of Lasix to see if we could diurese him as the patient does make a very tiny amount of urine. Additionally she recommended switching to a bicarb drip over a D5 half-normal drip. We will start the patient on this. Patient will be transferred to the [facility] for further management. I have extensively reviewed the treatment plan with the patient. I have addressed all patient concerns at this time. I have also discussed the plan with the admitting physician and they agree with the current assessment and plan and have agreed to assume responsibility for the patient. All parties demonstrate verbal understanding and agreement with our assessment and plan at this time. At time of transfer the patient was reassessed and continued to demonstrate current medical stability. No signs of acute respiratory distress requiring intubation, hemodynamic instability requiring pressor support, or rapidly declining mental status. The patient is stable for transport. EKG 1: 08 Rate 60, QTc 450, QRS 138, nonspecific 2 mm elevation in V2, no other reciprocal elevation, no reciprocal depression. Inverted T wave in V1 and aVR. No Q waves. Notably change from prior EKGs. Questionable ST segment in V2 does appear similar to a Brugada-like pattern. Peaking of T waves in anterior lateral leads. EKG 3: 29 Rate 86, GA 130, QTc 462, QRS 112, no ST elevations or depressions. T waves have notably decreased in size. ST elevation that was in V2 is now gone. Notable improvement in EKG. TECHNIQUE: Imaging protocol: XR of the chest, 1 view. COMPARISON: CR XR CHEST 2V PA LATERAL 10/19/2018 5:29 PM FINDINGS: Tubes, catheters and devices: Right internal jugular double-lumen hemodialysis catheter is in good position at the cavoatrial junction. Lungs: Patchy infiltrate within the right upper lobe consistent with acute lobar pneumonia. Finding was not present on 10/19/18. Pleural space: There is no evidence of pneumothorax. There are no pleural effusions present. Heart/Mediastinum: The mediastinal contour is normal. Bones/joints: Posterior transpedicular spinal fusion hardware present within the thoracolumbar spine. Soft tissues: The soft tissues of the extrathoracic region are unremarkable. IMPRESSION: Patchy infiltrate within Thank you for allowing us to participate in the care of your patient. Dictated and Authenticated by: Zev Quintero MD XAM: CT Angiography Chest With Contrast EXAM DATE/TIME: 02/04/2019 2:20 AM CLINICAL HISTORY: 59 years old, male; Other: Elevated d brittney; Abdominal pain; Localized; Left lower quadrant (llq); Prior surgery; Surgery date: 6+ months; Surgery type: Back surgery; Patient HX: Elevated d-dimer, llq pain, fatigue, paraplegic dialysis PT; Additional info: Dialysis PT. Okay to inject per Dr. Tano shultz 8.78 gfr 6.28. PT states he will have dialysis today TECHNIQUE: Imaging protocol: Axial computed tomographic angiography images of the chest with intravenous contrast using CT angiography protocol. Coronal and sagittal reformatted images were created and reviewed. 3D rendering: MIP reconstructed images were created and reviewed. Radiation optimization: All CT scans at this facility use at least one of these dose optimization techniques: automated exposure control; mA and/or kV adjustment per patient size (includes targeted exams where dose is matched to clinical indication); or iterative reconstruction. Contrast material: OMNIPAQUE 350; Contrast volume: 100 ml; Contrast route: IV RAC; COMPARISON: CT CHEST WITHOUT CONTRAST 03/14/2018 11:04 PM FINDINGS: Pulmonary arteries: There is no evidence of filling defects within the pulmonary arterial circulation to suggest pulmonary embolism. There is motion artifact limiting the evaluation of this study for pulmonary embolism. There are faint areas of low attenuation within the left lower lobe pulmonary arteries best demonstrated on the axial images image 50 series 7 within the left lower lobe pulmonary arteries and these likely represent artifact. No definitive pulmonary Inferior vena cava: There is reflux of contrast within the inferior vena cava and hepatic veins consistent with elevated right-sided cardiac pressures. This may reflect right heart strain. Consider pulmonary hypertension. Lungs: Focal consolidation of the right upper lobe of the lung consistent with acute lobar pneumonia. 7 mm diameter right upper lobe pulmonary nodule unchanged compared to prior study of 03/14/2018. There is heterogeneous attenuation of the pulmonary parenchyma, consistent with air trapping from underlying small airways disease. Pleural space: Unremarkable. No pneumothorax. No pleural effusion. Heart: There is moderate atherosclerotic calcification of the coronary arteries. There is mild left ventricular hypertrophy present. Upper abdomen: Please see CT of the abdomen and pelvis. Lymph nodes: There is no evidence of lymphadenopathy. Bones/joints: Transpedicular spinal fusion apparatus seen at the lower thoracic and upper lumbar spine. The skeletal structures and soft tissues show no evidence of fracture or other acute processes. Soft tissues: There is nonspecific gynecomastia. The soft tissues of the extrathoracic region are unremarkable. IMPRESSION: 1. Focal consolidation of the right upper lobe of the lung consistent with acute lobar pneumonia. 2. There is motion artifact limiting the evaluation of this study for pulmonary embolism. There are faint areas of low attenuation within the left lower lobe pulmonary arteries best demonstrated on the axial images image 50 series 7 within the left lower lobe pulmonary arteries and these likely represent artifact. No definitive pulmonary emboli identified. 3. There is no evidence of filling defects within the pulmonary arterial circulation to suggest pulmonary embolism. 4. 7 mm diameter right upper lobe pulmonary nodule unchanged compared to prior study of 03/14/2018. 5. There is heterogeneous attenuation of the pulmonary parenchyma, consistent with air trapping from underlying small airways disease. 6. There is reflux of contrast within the inferior vena cava and hepatic veins consistent with elevated right-sided cardiac pressures. This may reflect right heart strain. Consider pulmonary hypertension. EXAM: CT Angiography Abdomen With Contrast EXAM DATE/TIME: 02/04/2019 2:20 AM CLINICAL HISTORY: 59 years old, male; Other: Elevated d brittney; Abdominal pain; Localized; Left lower quadrant (llq); Prior surgery; Surgery date: 6+ months; Surgery type: Back surgery; Patient HX: Elevated d-dimer, llq pain, fatigue, paraplegic dialysis PT; Additional info: Dialysis PT. Okay to inject per Dr. Tano shultz 8.78 gfr 6.28. PT states he will have dialysis today COMPARISON: CT CHEST WITHOUT CONTRAST 03/14/2018 11:04 PM FINDINGS: Tubes, catheters and devices: There is a suprapubic Ovalles catheter present.The bladder is decompressed by the Ovalles catheter but is otherwise normal. There is a small amount of urinary bladder intraluminal air consistent with instrumentation. Lungs: Please see CT of the chest and lungs. VASCULATURE: Aorta: The aorta demonstrates moderate atherosclerotic calcification. The peripheral vasculature demonstrates diffuse moderate atherosclerotic calcification. The aorta demonstrates mild atherosclerotic calcification. Celiac trunk and mesenteric arteries: Mild atherosclerosis of the celiac artery. The celiac artery is otherwise widely patent. The superior mesenteric artery is widely patent. Mild atherosclerosis of the origin of the inferior mesenteric artery. The inferior mesenteric artery is otherwise widely patent. Renal arteries: The left renal artery is widely patent. The right renal artery is widely patent. Right iliac arteries: The right common iliac artery shows mild atherosclerosis but is otherwise patent. The right internal iliac artery and external iliac arteries show mild atherosclerosis but no evidence of flow-limiting stenoses. Right femoral/popliteal arteries: The visualized right common femoral, deep femoral and superficial femoral arteries are patent. Left iliac arteries: The left common iliac artery shows mild atherosclerosis but is otherwise patent. The left internal iliac artery and external iliac arteries show mild atherosclerosis but no evidence of flow-limiting stenoses. Left femoral/popliteal arteries: The visualized left common femoral, deep femoral and superficial femoral arteries are patent. Inferior vena cava: No evidence of right or left femoral, iliac or inferior vena cava venous thrombus. ABDOMEN: Liver: There are no focal liver lesions present. Gallbladder and bile ducts: There are calcified gallstones present within the gallbladder lumen. There is no wall thickening or pericholecystic fluid. Pancreas: There is moderate pancreatic atrophy. Pancreas otherwise appears normal. Spleen: The spleen is normal. Adrenals: The adrenal glands are normal. Kidneys and ureters: The kidneys are normal. Stomach and bowel: There is a transverse colostomy present without evidence of obstruction. Appendix: There is no evidence of appendicitis. Intraperitoneal space: There is no free intraperitoneal air. There is no evidence of free intraperitoneal or pelvic fluid. Bones/joints: There is destruction of the right femoral head and there is a large mixed attenuation solid and cystic mass present measuring 12.7 x 14.1 cm. There may be a fistula to the right lateral hip soft tissues. Findings are similar to those seen on 08/16/17. Consider chronic osteomyelitis. Posterior thoracolumbar transpedicular fusion moderate to severe degenerative changes of the lumbar facets with sclerosis and fusion. Ankylosis of the lumbar discs seen anteriorly. Soft tissues: Probable large decubitus ulcers seen within the left and right buttocks. Lymph nodes: There is no evidence of lymphadenopathy. There is no evidence of lymphadenopathy. There is adenopathy within the right and left inguinal regions as well as the right and left external iliac retroperitoneal and periaortic lymph node chains. Other findings: Findings consistant with cholelitiasis without cholecystitis. IMPRESSION: 1. Findings consistant with cholelitiasis without cholecystitis. 2. There is destruction of the right femoral head and there is a large mixed attenuation solid and cystic mass present measuring 12.7 x 14.1 cm. There may be a fistula to the right lateral hip soft tissues. Findings are similar to those seen on 08/16/17. Consider chronic osteomyelitis. 3. No evidence of right or left femoral, iliac or inferior vena cava venous thrombus. 4. Probable large decubitus ulcers seen within the left and right buttocks. Thank you for allowing us to participate in the care of your patient. Dictated and Authenticated by: Zev Quintero MD 02/04/2019 3:41 AM Eastern Time ([place] & [place]) HPI General Date/Time Provider Initiated Documentation: 02/04/19 01:05. HPI Narrative: This is a 59-year-old male with a past medical history of dialysis, paraplegia, chronic renal failure, multiple chronic ulcers, ostomy, tobacco abuse, hypertension, who presents today for evaluation of fatigue. Patient states that he recently finished a dose of Cipro for 1 of his ulcers. Is getting regular wound care for this. In the last 24 hours he has been notably fatigued, he states that he slept 12 to 19 hours today. He feels weak, dizzy, like his entire body weighs 100 pounds. He denies any fever, chills, vomiting or diarrhea. He does admit to pain in his penile region where the urinary catheter was placed, but no pain where his suprapubic catheter is placed. He does not usually produce much urine. His dialysis is Sunday and Sunday. He did miss his last dialysis episode on Sunday. he denies any history of cardiac disease. He denies any chest pain, stabbing sensation in his chest, or focal chest heaviness. He denies any other complaints at this time. No other modifying factors. Related Data Home Medications Medication Instructions Recorded Confirmed Ensure High Protein 237 ml PO PRN 12/16/15 02/04/19 cyanocobalamin (vitamin B-12) 1,000 mcg PO DAILY #90 tab 10/08/16 02/04/19 [Vitamin B-12] calcitriol 0.25 mcg PO DAILY #30 cap 12/29/16 02/04/19 calcium acetate 1,334 mg PO AC #180 cap 12/29/16 02/04/19 sodium bicarbonate 650 mg PO TID #60 tab 12/29/16 02/04/19 venlafaxine [Effexor XR] 150 mg PO DAILY 08/15/17 02/04/19 ferrous sulfate 325 mg PO DAILY tab 08/30/17 02/04/19 ondansetron 4 mg PO Q8H PRN PRN tabef 08/30/17 02/04/19 Acephen 650 mg GA Q4H PRN PRN 10/29/17 02/04/19 buspirone 5 mg PO BID 02/21/18 02/04/19 gabapentin 300 mg PO HS 02/21/18 02/04/19 cefpodoxime 200 mg PO DAILY #6 tab 02/27/18 02/04/19 clonazepam 0.5 mg PO BID PRN PRN #0 02/27/18 02/04/19 mupirocin 0 gm TOPICAL DAILY #0 tube 02/27/18 02/04/19 lorazepam 1 mg PO Q2H PRN PRN #10 tab 04/02/18 02/04/19 amlodipine [Norvasc] 5 mg PO DAILY #7 tab 10/19/18 02/04/19 Previous Rx's Medication Instructions Recorded cyanocobalamin (vitamin B-12) 1,000 mcg PO DAILY #90 tab 10/08/16 [Vitamin B-12] calcitriol 0.25 mcg PO DAILY #30 cap 12/29/16 calcium acetate 1,334 mg PO AC #180 cap 12/29/16 sodium bicarbonate 650 mg PO TID #60 tab 12/29/16 ferrous sulfate 325 mg PO DAILY tab 08/30/17 ondansetron 4 mg PO Q8H PRN PRN tabef 08/30/17 cefpodoxime 200 mg PO DAILY #6 tab 02/27/18 clonazepam 0.5 mg PO BID PRN PRN #0 02/27/18 mupirocin 0 gm TOPICAL DAILY #0 tube 02/27/18 lorazepam 1 mg PO Q2H PRN PRN #10 tab 04/02/18 amlodipine [Norvasc] 5 mg PO DAILY #7 tab 10/19/18 Allergies Allergy/AdvReac Type Severity Reaction Status Date / Time oxycodone Allergy Skin Rash Unverified 02/04/19 01:05 topiramate [From Topamax] AdvReac Severe put me Unverified 02/04/19 01:05 out, couldn't wake me up General AMY: 4 Review of Systems Review of Systems All systems reviewed & are unremarkable except as noted in HPI and below PFSH Social History Smoking/Tobacco Use Status: Current every day Tobacco Type: cigarettes Smoking cigarettes per day: 10 Alcohol Intake: former Drug use: Never Substance use type: does not use Do you feel safe at home: Yes Do you feel safe in your relationship?: Yes Exam Narrative Exam Narrative: 1.Const: Well-nourished, Well-developed, appearing stated age 2.Eyes: PERRL, no conjunctival injection, and symmetrical lids. 3.ENT: Atraumatic external nose and ears. Moist MM. Neck: Symmetric, trachea midline, No thyromegaly. 4.CVS: +S1/S2, No murmurs or gallops. Peripheral pulses 2+ and equal in all extremities. Brisk capillary refill in all extremities. 5.RESP: Unlabored respiratory effort. Clear to auscultation bilaterally. No wheezes rales or rhonchi 6.GI: Soft,Nondistended, No hepatosplenomegaly. No guarding or rebound. Mild left lower quadrant abdominal tenderness on palpation. There is a suprapubic catheter in place as well as a urethral catheter. No penile tenderness. 7.MSK: Normocephalic/Atraumatic, Extremities w/o deformity or ttp No cyanosis or clubbing, paraplegia of the lower extremities. Chronic ulcer on the lateral aspect of his right knee. Notably improved compared to prior visit. 8.Skin: Warm, Dry. Chronic ulcer on the right lateral knee, in the sacral region. 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 Sensation grossly intact aside for his lower extremities. 10.Psych: (AAO) x3. Appropriate mood and affect
--- NOTE | 2019-02-04 01:15 | DI.RAD_ITS ---
SYMPTOM/DIAGNOSIS: FATIGUE, R/O PNEUMONIA PORTABLE CHEST: Note is made of a right internal jugular dialysis catheter with its tip ending in the right atrium. Comparison with a previous chest image of 04/11/2018 shows no significant interval change. There is no evidence of acute pulmonary disease. There is no pleural effusion or pneumothorax. The heart is within normal limits in size. No bony abnormality is identified. SUMMARY: Comparison with a prior study of 2018 shows no significant interval change. There is no evidence of acute cardiopulmonary disease. A right internal jugular dialysis catheter is present with the tip ending in the right atrium. Note is made of a transpedicular fixation screw and kvng device at the dorsolumbar junction.
[2019-02-04 01:39] LABS: Abs Immature Grans 0.03 k/cumm (0.0-0.09); Absolute Basophil Count 0.04 k/cumm (0.0-0.2); Absolute Lymphocyte Count 1.59 k/cumm (1.2-3.4); Absolute Neutrophil Count 15.16 k/cumm (1.2-6.7); Basophils % 0.2; Eosinophils % 0.4; HCT 31.4 % (40.0-50.0); HGB 10.4 g/dL (13.5-17.5); Immature Grans % 0.2; Lymphocytes % 8.9; Mean Corp. HGB Concentration 33.1 g/dL (32.0-36.0); Mean Corpuscular Hemoglobin 28.9 pg (27.0-33.0); Mean Corpuscular Volume 87.2 fL (80-95); Mean Platelet Volume 9.2 fL (8.0-11.0); Monocytes % 5.2; Neutrophils % 85.1; Platelet Count 360 x1000/uL (130-400); RBC Distribution Width 14.1 % (11.8-14.1); White Blood Cell Count 17.82 k/cumm (4.4-10.8)
[2019-02-04 01:43] LABS: Absolute Eosinophil Count 0.07 k/cumm (0.0-0.7); Absolute Monocyte Count 0.93 k/cumm (0.11-0.7)
[2019-02-04 01:50] LABS: Bilirubin Negative (Negative); Blood Large (Negative); Clarity Clear; Glucose 100 mg/dL (Negative); Ketones Negative (Negative); Leukocyte Esterase Moderate (Negative); Nitrite Negative (Negative); Urobilinogen 0.2 EU/dL (Up TO 0.2); pH 8.5 (5-8)
[2019-02-04 01:57] LABS: PTT Activated 27.6 sec (21.0-31.4); Prothrombin Time 10.3 sec (9.3-11.0)
[2019-02-04 02:00] LABS: Bacteria Many HPF (Negative); C & S Indicated? C&S Done As Ordered; Casts Negative LPF (Negative); Crystals Negative HPF (Negative); Epithelial Cells Few HPF (Negative); Mucus Moderate (Negative); Other Cells Negative (Negative); RBC 20-50 (0-2); WBC 20-50 HPF (0-5)
[2019-02-04 02:02] LABS: ALT 14 U/L (12-78); AST 14 U/L (15-37); Albumin 2.7 g/dL (3.4-5.0); Alkaline Phosphatase 165 U/L (46-116); Anion Gap 9.6 mmol/L (3-11); BUN 63 mg/dL (7-18); Bilirubin, Total 0.3 mg/dL (0.2-1.0); CO2 23.4 mmol/L (21.0-32.0); Calcium 8.1 mg/dL (8.5-10.1); Chloride 92 mmol/L (98-107); Estimated GFR 6.28 (mL/min/1.73m2); Glucose 65 mg/dL (70-100); NT-proBNP 15541 pg/mL; Sodium 125 mmol/L (136-145); Total Protein 8.2 g/dL (6.4-8.2)
[2019-02-04 02:16] LABS: D-Dimer 3564 ng/mlFEU (<500)
[2019-02-04 02:18] LABS: CREATININE 8.78 mg/dL (0.70-1.30); Potassium 8.7 mmol/L (3.5-5.1); Troponin I < 0.02 ng/mL (0.00-0.06)
[2019-02-04 02:29] LABS: Anion Gap 9.5 mmol/L (3-11); BUN 63 mg/dL (7-18); CO2 23.5 mmol/L (21.0-32.0); Calcium 8.2 mg/dL (8.5-10.1); Chloride 92 mmol/L (98-107); Estimated GFR 6.28 (mL/min/1.73m2); Glucose 61 mg/dL (70-100); Sodium 125 mmol/L (136-145)
[2019-02-04 02:32] LABS: CREATININE 8.78 mg/dL (0.70-1.30)
[2019-02-04 02:33] LABS: Potassium 8.9 mmol/L (3.5-5.1)
[2019-02-04] MEDS: Insulin REGULAR-Human 100 UNITS/ML UNIT SC (02:38)
[2019-02-04] MEDS: Sodium Bicarbonate 50 MEQ/50 ML SYR IVP (02:39)
[2019-02-04] MEDS: Normal Saline 50 ML 100 ML (02:40)
[2019-02-04] MEDS: Dextrose 50%-Water 25 GM/50 ML SYR (02:40)
--- NOTE | 2019-02-04 02:50 | DI.CT_ITS ---
SYMPTOM/DIAGNOSIS: ELEVATED DIMER, R/O PE PE CT, CT ABDOMEN AND PELVIS: PE CT: CT angiography was performed with multi slice acquisition and multi planar and 3D reconstruction. The examination was carried out with an intravenous administration of 100 cc Omnipaque 350. There is no evidence of PE. The aorta is unremarkable without evidence of an aneurysm or dissection. Note is made of reflux of contrast material in the inferior vena cava and hepatic veins consistent with elevated right sided cardiac pressures. Evaluation of the lungs reveals a focal area of right upper lobe consolidation consistent with an acute lobar pneumonia. A 7 mm diameter right upper lobe nodule is identified, unchanged when compared with the prior study of 03/14/2018. Also note is made of heterogeneous attenuation in the pulmonary parenchyma consistent with air trapping from underlying small airway disease. There is no evidence of a pneumothorax or pleural effusion. Note is made of coronary artery calcification and left ventricular hypertrophy. There is no pericardial effusion. There is no evidence of lymphadenopathy. Note is made of a tripedicular spinal fusion in the lower thoracic and upper lumbar spine. There is no evidence of an acute abnormality. SUMMARY: Focal consolidation right upper lobe consistent with an acute pneumonitis. There is no evidence of pulmonary emboli with note made of motion artifact which somewhat limits the study. There are faint areas of low attenuation of the left lower lobe and pulmonary artery is best demonstrated on the axial images and likely represent artifact. No PE is seen. A 7 mm right upper lobe nodule is demonstrated. Note is made of reflux within the vena cava and hepatic veins consistent with elevated right sided cardiac pressures. CTA ANGIOGRAPHY ABDOMEN AND PELVIS:: CT angiography was performed with multi slice acquisition and multi planar and 3D reconstruction. The study was carried out with intravenous administration of 100 cc Omnipaque 350. The bladder is decompressed. Ovalles catheter in place. A small quantity of gas in the bladder likely represents findings consistent with instrumentation. There are moderate atherosclerotic changes involving the aorta without evidence of an aneurysm. Evaluation of the celiac trunk and mesenteric arteries, there is mild atherosclerosis involving the celiac artery which is otherwise unremarkable and widely patent. The superior mesenteric artery is widely patent. There are mild atherosclerotic changes involving the origin of the inferior mesenteric artery. The inferior mesenteric artery is otherwise widely patent. The left renal artery is widely patent. The right renal artery is also intact. Evaluation of iliac arteries reveals mild atherosclerotic change involving the right common iliac artery. The right internal iliac artery and external iliac arteries show mild atherosclerosis but no evidence of significant stenosis. The right femoral and popliteal arteries appear intact. The left common iliac artery shows mild atherosclerotic changes but is otherwise unremarkable. The left femoral and left popliteal arteries are patent. Inferior vena cava is intact. The liver is unremarkable. Cholelithiasis is demonstrated. There is no evidence of gallbladder wall thickening or pericholecystic fluid. Atrophic changes involving the pancreas are demonstrated. Spleen is normal. The adrenal glands are normal. The kidneys are unremarkable. There is no evidence of bowel obstruction. There is a transverse colostomy in place. There is no evidence of an acute appendix. There is not evidence of free air or free fluid in the intraperitoneal space. Note is made of destruction of the right femoral head and there is large mixed attenuation, solid and cystic mass present measuring 12.7 x 14.1 cm. This may represent a fistula to the right lateral hip soft tissues. These are similar findings when compared with the study of 08/16/17. The findings could represent chronic osteomyelitis. There is a posterior thoracolumbar transpedicular fusion with moderate to severe degenerative changes of the lumbar facet joints. There is sclerosis and fusion and ankylosis of the lumbar disc anteriorly. There are probable large decubitus ulcers seen within the left and right buttocks. Enlarged nodes are noted in the right and left inguinal regions as well as in the right and left internal iliac lymph node chains. There is evidence of cholelithiasis without evidence of cholecystitis. SUMMARY: Gallstones are identified in the gallbladder. There is no evidence of cholecystitis. Note is made of destruction of the right femoral head and there is a large mixed attenuation solid and cystic mass present measuring up to 12.7 x 14.1 cm. This could represent a fistula to the right lateral hip soft tissues. The findings are similar to a previous study of 08/16/17. There is no evidence of a right or left femoral or iliac or inferior vena caval thrombus. Note is made of probable large decubitus ulcers in the right and left buttocks.
[2019-02-04] MEDS: Sodium Chloride 0.9% for Inhalation 3 ML VIAL (02:54)
--- NOTE | 2019-02-04 03:07 | DI.VRAD_ITS ---
EXAM: XR Chest, 1 View EXAM DATE/TIME: 02/04/2019 1:07 AM CLINICAL HISTORY: 59 years old, male; Signs and symptoms; Prior surgery; Surgery date: 6+ months; Surgery type: Spinal fusion; Patient HX: Fatigue, R/O pneumonia TECHNIQUE: Imaging protocol: XR of the chest, 1 view. COMPARISON: CR XR CHEST 2V PA LATERAL 10/19/2018 5:29 PM FINDINGS: Tubes, catheters and devices: Right internal jugular double-lumen hemodialysis catheter is in good position at the cavoatrial junction. Lungs: Patchy infiltrate within the right upper lobe consistent with acute lobar pneumonia. Finding was not present on 10/19/18. Pleural space: There is no evidence of pneumothorax. There are no pleural effusions present. Heart/Mediastinum: The mediastinal contour is normal. Bones/joints: Posterior transpedicular spinal fusion hardware present within the thoracolumbar spine. Soft tissues: The soft tissues of the extrathoracic region are unremarkable. IMPRESSION: Patchy infiltrate within the right upper lobe consistent with acute lobar pneumonia. Finding was not present on 10/19/18. Dictated and Authenticated by: Zev Quintero MD. Ordering:ALFONSO Bill MD
[2019-02-04] MEDS: Omnipaque 350 MG/ML 100 ML BTL IJ (03:09)
[2019-02-04] MEDS: Insulin REGULAR-Human 100 UNITS/ML UNIT IV (03:10)
[2019-02-04] MEDS: DEXTROSE 5%-0.45% SALINE 1,000 ML 100 ML IV (03:16)
[2019-02-04] MEDS: cefTRIAXone 1 GM/50 ML BAG IVPB (03:16)
--- NOTE | 2019-02-04 03:42 | DI.VRAD_ITS ---
EXAM: CT Angiography Chest With Contrast EXAM DATE/TIME: 02/04/2019 2:20 AM CLINICAL HISTORY: 59 years old, male; Other: Elevated d brittney; Abdominal pain; Localized; Left lower quadrant (llq); Prior surgery; Surgery date: 6+ months; Surgery type: Back surgery; Patient HX: Elevated d-dimer, llq pain, fatigue, paraplegic dialysis PT; Additional info: Dialysis PT. Okay to inject per Dr. Tano shultz 8.78 gfr 6.28. PT states he will have dialysis today TECHNIQUE: Imaging protocol: Axial computed tomographic angiography images of the chest with intravenous contrast using CT angiography protocol. Coronal and sagittal reformatted images were created and reviewed. 3D rendering: MIP reconstructed images were created and reviewed. Radiation optimization: All CT scans at this facility use at least one of these dose optimization techniques: automated exposure control; mA and/or kV adjustment per patient size (includes targeted exams where dose is matched to clinical indication); or iterative reconstruction. Contrast material: OMNIPAQUE 350; Contrast volume: 100 ml; Contrast route: IV RAC; COMPARISON: CT CHEST WITHOUT CONTRAST 03/14/2018 11:04 PM FINDINGS: Pulmonary arteries: There is no evidence of filling defects within the pulmonary arterial circulation to suggest pulmonary embolism. There is motion artifact limiting the evaluation of this study for pulmonary embolism. There are faint areas of low attenuation within the left lower lobe pulmonary arteries best demonstrated on the axial images image 50 series 7 within the left lower lobe pulmonary arteries and these likely represent artifact. No definitive pulmonary emboli identified. Aorta: Unremarkable. No aortic aneurysm. No aortic dissection. Inferior vena cava: There is reflux of contrast within the inferior vena cava and hepatic veins consistent with elevated right-sided cardiac pressures. This may reflect right heart strain. Consider pulmonary hypertension. Lungs: Focal consolidation of the right upper lobe of the lung consistent with acute lobar pneumonia. 7 mm diameter right upper lobe pulmonary nodule unchanged compared to prior study of 03/14/2018. There is heterogeneous attenuation of the pulmonary parenchyma, consistent with air trapping from underlying small airways disease. Pleural space: Unremarkable. No pneumothorax. No pleural effusion. Heart: There is moderate atherosclerotic calcification of the coronary arteries. There is mild left ventricular hypertrophy present. Upper abdomen: Please see CT of the abdomen and pelvis. Lymph nodes: There is no evidence of lymphadenopathy. Bones/joints: Transpedicular spinal fusion apparatus seen at the lower thoracic and upper lumbar spine. The skeletal structures and soft tissues show no evidence of fracture or other acute processes. Soft tissues: There is nonspecific gynecomastia. The soft tissues of the extrathoracic region are unremarkable. IMPRESSION: 1. Focal consolidation of the right upper lobe of the lung consistent with acute lobar pneumonia. 2. There is motion artifact limiting the evaluation of this study for pulmonary embolism. There are faint areas of low attenuation within the left lower lobe pulmonary arteries best demonstrated on the axial images image 50 series 7 within the left lower lobe pulmonary arteries and these likely represent artifact. No definitive pulmonary emboli identified. 3. There is no evidence of filling defects within the pulmonary arterial circulation to suggest pulmonary embolism. 4. 7 mm diameter right upper lobe pulmonary nodule unchanged compared to prior study of 03/14/2018. 5. There is heterogeneous attenuation of the pulmonary parenchyma, consistent with air trapping from underlying small airways disease. 6. There is reflux of contrast within the inferior vena cava and hepatic veins consistent with elevated right-sided cardiac pressures. This may reflect right heart strain. Consider pulmonary hypertension. EXAM: CT Angiography Abdomen With Contrast EXAM DATE/TIME: 02/04/2019 2:20 AM CLINICAL HISTORY: 59 years old, male; Other: Elevated d brittney; Abdominal pain; Localized; Left lower quadrant (llq); Prior surgery; Surgery date: 6+ months; Surgery type: Back surgery; Patient HX: Elevated d-dimer, llq pain, fatigue, paraplegic dialysis PT; Additional info: Dialysis PT. Okay to inject per Dr. Tano shultz 8.78 gfr 6.28. PT states he will have dialysis today TECHNIQUE: Imaging protocol: Axial computed tomographic angiography images of the abdomen with intravenous contrast material. Coronal and sagittal reformatted images were created and reviewed. 3D rendering: MIP reconstructed images were created and reviewed. Radiation optimization: All CT scans at this facility use at least one of these dose optimization techniques: automated exposure control; mA and/or kV adjustment per patient size (includes targeted exams where dose is matched to clinical indication); or iterative reconstruction. Contrast material: OMNIPAQUE 350; Contrast volume: 1 ml; Contrast route: IV; COMPARISON: CT CHEST WITHOUT CONTRAST 03/14/2018 11:04 PM FINDINGS: Tubes, catheters and devices: There is a suprapubic Ovalles catheter present.The bladder is decompressed by the Ovalles catheter but is otherwise normal. There is a small amount of urinary bladder intraluminal air consistent with instrumentation. Lungs: Please see CT of the chest and lungs. VASCULATURE: Aorta: The aorta demonstrates moderate atherosclerotic calcification. The peripheral vasculature demonstrates diffuse moderate atherosclerotic calcification. The aorta demonstrates mild atherosclerotic calcification. Celiac trunk and mesenteric arteries: Mild atherosclerosis of the celiac artery. The celiac artery is otherwise widely patent. The superior mesenteric artery is widely patent. Mild atherosclerosis of the origin of the inferior mesenteric artery. The inferior mesenteric artery is otherwise widely patent. Renal arteries: The left renal artery is widely patent. The right renal artery is widely patent. Right iliac arteries: The right common iliac artery shows mild atherosclerosis but is otherwise patent. The right internal iliac artery and external iliac arteries show mild atherosclerosis but no evidence of flow-limiting stenoses. Right femoral/popliteal arteries: The visualized right common femoral, deep femoral and superficial femoral arteries are patent. Left iliac arteries: The left common iliac artery shows mild atherosclerosis but is otherwise patent. The left internal iliac artery and external iliac arteries show mild atherosclerosis but no evidence of flow-limiting stenoses. Left femoral/popliteal arteries: The visualized left common femoral, deep femoral and superficial femoral arteries are patent. Inferior vena cava: No evidence of right or left femoral, iliac or inferior vena cava venous thrombus. ABDOMEN: Liver: There are no focal liver lesions present. Gallbladder and bile ducts: There are calcified gallstones present within the gallbladder lumen. There is no wall thickening or pericholecystic fluid. Pancreas: There is moderate pancreatic atrophy. Pancreas otherwise appears normal. Spleen: The spleen is normal. Adrenals: The adrenal glands are normal. Kidneys and ureters: The kidneys are normal. Stomach and bowel: There is a transverse colostomy present without evidence of obstruction. Appendix: There is no evidence of appendicitis. Intraperitoneal space: There is no free intraperitoneal air. There is no evidence of free intraperitoneal or pelvic fluid. Bones/joints: There is destruction of the right femoral head and there is a large mixed attenuation solid and cystic mass present measuring 12.7 x 14.1 cm. There may be a fistula to the right lateral hip soft tissues. Findings are similar to those seen on 08/16/17. Consider chronic osteomyelitis. Posterior thoracolumbar transpedicular fusion moderate to severe degenerative changes of the lumbar facets with sclerosis and fusion. Ankylosis of the lumbar discs seen anteriorly. Soft tissues: Probable large decubitus ulcers seen within the left and right buttocks. Lymph nodes: There is no evidence of lymphadenopathy. There is no evidence of lymphadenopathy. There is adenopathy within the right and left inguinal regions as well as the right and left external iliac retroperitoneal and periaortic lymph node chains. Other findings: Findings consistant with cholelitiasis without cholecystitis. IMPRESSION: 1. Findings consistant with cholelitiasis without cholecystitis. 2. There is destruction of the right femoral head and there is a large mixed attenuation solid and cystic mass present measuring 12.7 x 14.1 cm. There may be a fistula to the right lateral hip soft tissues. Findings are similar to those seen on 08/16/17. Consider chronic osteomyelitis. 3. No evidence of right or left femoral, iliac or inferior vena cava venous thrombus. 4. Probable large decubitus ulcers seen within the left and right buttocks. Dictated and Authenticated by: Zev Quintero MD. Ordering:ALFONSO Bill MD
[2019-02-04] MEDS: DOXYCYCLINE 100 MG in Normal Saline 100 ML IVPB (03:55)
[2019-02-04] MEDS: Furosemide 100 MG/10 ML VIAL 120 MG IVP (03:56)
[2019-02-04 04:07] LABS: Anion Gap 11.6 mmol/L (3-11); BUN 63 mg/dL (7-18); CO2 23.4 mmol/L (21.0-32.0); Calcium 7.9 mg/dL (8.5-10.1); Chloride 92 mmol/L (98-107); Estimated GFR 6.41 (mL/min/1.73m2); Glucose 101 mg/dL (70-100); Sodium 127 mmol/L (136-145)
[2019-02-04 04:14] LABS: CREATININE 8.62 mg/dL (0.70-1.30); Potassium 7.1 mmol/L (3.5-5.1)
[2019-02-04] MEDS: DEXTROSE 5%-WATER 1,000 ML 100 ML IV (04:24)
[2019-02-04] MEDS: Sodium Bicarbonate 50 MEQ/50 ML VIAL (04:25)
== END 2019-02-04 05:18 | disposition short-term general hospital (02) ==
LOC: ER 04:33
PROVIDERS: Emergency Provider Student in an Organized Health Care Education/Training Program; PCP Family Medicine
DX: E87.5 Hyperkalemia (principal); N18.6 End stage renal disease; R53.83 Other fatigue; R94.31 Abnormal electrocardiogram [ECG] [EKG]; J18.9 Pneumonia, unspecified organism; I12.0 Hypertensive chronic kidney disease with stage 5 chronic kidney disease or end stage renal disease; Z91.15 Patient's noncompliance with renal dialysis; G82.21 Paraplegia, complete; R79.1 Abnormal coagulation profile
CPT/HCPCS: 36415; 36416; 71275; 74177; 80048; 80053; 82962; 87077; 93005; 94640; 96361; 96365; 96366; 96367; 99285; 71045; 81003; 81015; 83880; 84484; 85025; 85379; 85610; 85730; 87086; 87186; 93010; J0610; J0696; J3490; J7611

== ENCOUNTER 2019-02-23 00:01 | Emergency (ER) | payer MEDICARE, MEDICAID, SELFPAY ==
[2019-02-22 23:53] VITALS: BP 158/86; PULSE 88; RESP 18; TEMP 36.6; O2SAT 98
[2019-02-23 00:05] VITALS: TEMP 36.7
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
[2019-02-23 00:34] LABS: Lactate-non-spesis 0.8 mmol/l (0.6-1.4)
[2019-02-23 00:36] LABS: Absolute Basophil Count 0.03 k/cumm (0.0-0.2); Absolute Eosinophil Count 0.32 k/cumm (0.0-0.7); Absolute Monocyte Count 0.91 k/cumm (0.11-0.7); Absolute Neutrophil Count 4.38 k/cumm (1.2-6.7); Basophils % 0.4; Eosinophils % 4.5; HCT 34.4 % (40.0-50.0); HGB 11.1 g/dL (13.5-17.5); Mean Corp. HGB Concentration 32.3 g/dL (32.0-36.0); Mean Corpuscular Hemoglobin 29.1 pg (27.0-33.0); Mean Corpuscular Volume 90.1 fL (80-95); Mean Platelet Volume 8.9 fL (8.0-11.0); Monocytes % 12.7; Neutrophils % 61.4; Platelet Count 246 x1000/uL (130-400); RBC 3.82 m/cumm (4.50-6.00); RBC Distribution Width 16.2 % (11.8-14.1); White Blood Cell Count 7.14 k/cumm (4.4-10.8)
[2019-02-23] MEDS: diphenhydrAMINE 50 MG/ML VIAL 25 MG IVP (00:36)
[2019-02-23] MEDS: Lidocaine 5% Patch 1 PATCH TP (00:36)
[2019-02-23] MEDS: Normal Saline 250 ML IV (00:37)
[2019-02-23] MEDS: Prochlorperazine 10 MG/2 ML VIAL IVP (00:37)
[2019-02-23 00:50] LABS: ALT 14 U/L (12-78); AST 16 U/L (15-37); Alkaline Phosphatase 172 U/L (46-116); Anion Gap 9.1 mmol/L (3-11); BUN 10 mg/dL (7-18); Bilirubin, Total 0.3 mg/dL (0.2-1.0); CO2 32.9 mmol/L (21.0-32.0); CREATININE 2.68 mg/dL (0.70-1.30); Calcium 8.9 mg/dL (8.5-10.1); Chloride 96 mmol/L (98-107); Estimated GFR 24.69 (mL/min/1.73m2); Glucose 127 mg/dL (70-100); Potassium 3.9 mmol/L (3.5-5.1); Sodium 138 mmol/L (136-145); Total Protein 8.3 g/dL (6.4-8.2)
--- NOTE | 2019-02-23 00:54 | DI.RAD_ITS ---
SYMPTOM/DIAGNOSIS: HEADACHE, R/O ACUTE DISEASE AP AND LATERAL CHEST: Comparison is made with 04 February 2019. There has been some interval clearing of the previously noted right upper lobe infiltrate. A hemodialysis catheter is again noted. Heart size is noted. Rods are seen in the spine. IMPRESSION: Clearing of right upper lobe infiltrate. No new abnormality
--- NOTE | 2019-02-23 01:02 | DI.CT_ITS ---
SYMPTOM/DIAGNOSIS: HEADACHE, R/O ACUTE DISEASE NONCONTRAST HEAD CT: Comparison is made with 19 October 2018. No intracranial hemorrhage, mass or acute infarct seen. The ventricles are normal in size. There is minimal atrophy, stable. No significant white matter changes are seen. The sinuses and mastoid air cells appear clear. IMPRESSION: No acute abnormality.
--- NOTE | 2019-02-23 01:06 | DI.VRAD_ITS ---
EXAM: XR Chest, 2 Views EXAM DATE/TIME: 02/23/2019 12:19 AM CLINICAL HISTORY: 59 years old, male; Other: Headache, R/O acute disease TECHNIQUE: Imaging protocol: XR of the chest, 2 views. COMPARISON: SC XR PORTABLE CHEST AP 02/04/2019 1:14 AM FINDINGS: Tubes, catheters and devices: Right IJ tunnel hemodialysis catheter. Lungs: Unremarkable. No consolidation. Pleural space: Unremarkable. No evidence of pneumothorax. Heart/Mediastinum: Unremarkable. Heart size within normal limits for technique. Bones/joints: Posterior spinal fusion changes. IMPRESSION: No acute findings. Dictated and Authenticated by: Troy Benavides MD. Ordering:EMEKA Breaux MD
--- NOTE | 2019-02-23 01:07 | DI.VRAD_ITS ---
EXAM: CT Head Without Contrast EXAM DATE/TIME: 02/23/2019 12:19 AM CLINICAL HISTORY: 59 years old, male; Pain; Headache TECHNIQUE: Imaging protocol: Axial computed tomography images of the head without contrast. Coronal and sagittal reformatted images were created and reviewed. COMPARISON: CT HEAD WO 10/19/2018 5:33 PM FINDINGS: Brain: Typical for age. No hemorrhage. No evidence of acute infarct. No mass. Ventricles: No ventriculomegaly. Bones/joints: Unremarkable. Sinuses: No sinus fluid. Mastoid air cells: Unremarkable. Soft tissues: Unremarkable. IMPRESSION: No acute intracranial abnormality. Dictated and Authenticated by: Troy Benavides MD. Ordering:EMEKA Breaux MD
--- NOTE | 2019-02-23 01:50 | NUR.NOTE ---
Nursing Note: Pt reports headache and nausea improved after receiving medication. Pt given mina crackers, peanut butter and gingerale.
[2019-02-23 02:19] VITALS: BP 149/90; PULSE 85; RESP 18; TEMP 36.6; O2SAT 97
== END 2019-02-23 02:45 | disposition home or self-care (01) ==
PROVIDERS: Emergency Provider Physician Assistant; PCP Family Medicine
DX: R51 Headache (principal); S39.012A Strain of muscle, fascia and tendon of lower back, initial encounter; X50.9XXA Other and unspecified overexertion or strenuous movements or postures, initial encounter; G82.20 Paraplegia, unspecified; V89.2XXS Person injured in unspecified motor-vehicle accident, traffic, sequela; N18.6 End stage renal disease; Z99.2 Dependence on renal dialysis; Z96.0 Presence of urogenital implants
CPT/HCPCS: 36415; 80053; 96361; 96374; 96375; 99284; 70450; 71046; 83605; 85025; J0780; J1200

== ENCOUNTER 2019-03-05 14:39 | Outpatient (REF) | payer MEDICARE, SELFPAY ==
[2019-03-07 09:04] LABS: PSA, Screening 0.9 ng/ml (0-3.5)
[2019-03-09 08:28] LABS: Testosterone, Free 5.75 ng/dL (3.87-14.7); Testosterone, Total 383 ng/dL (240-950)
== END 2019-03-05 14:59 ==
LOC: NCHCN 14:39
PROVIDERS: PCP Family Medicine; Visit Provider Family Medicine
DX: E29.1 Testicular hypofunction (principal); Z12.5 Encounter for screening for malignant neoplasm of prostate
CPT/HCPCS: 84153; 84402; 84403

== ENCOUNTER 2019-03-21 11:03 | Outpatient (REF) | payer MEDICARE, SELFPAY | END 2019-03-21 11:23 | LOC: NCHCN 11:03 | PROVIDERS: PCP Family Medicine; Visit Provider Family Medicine | DX: N39.0 Urinary tract infection, site not specified (principal) | CPT/HCPCS: 87086 ==

== ENCOUNTER 2019-03-26 18:59 | Outpatient (REF) | payer MEDICARE, SELFPAY | END 2019-03-26 19:19 | LOC: NCHCN 18:59 | PROVIDERS: PCP Family Medicine; Visit Provider Family Medicine | DX: T81.31XA Disruption of external operation (surgical) wound, not elsewhere classified, initial encounter (principal); L89.899 Pressure ulcer of other site, unspecified stage | CPT/HCPCS: 87077; 87070; 87186; 87205 ==

== ENCOUNTER 2019-05-12 18:51 | Outpatient (REF) | payer MEDICARE, SELFPAY ==
[2019-05-12 19:00] LABS: Bilirubin Negative (Negative); Blood Moderate (Negative); Clarity Cloudy (Clear); Glucose Negative (Negative); Ketones Trace mg/dL (Negative); Leukocyte Esterase Large (Negative); Nitrite Negative (Negative); Urobilinogen 0.2 EU/dL (Up TO 0.2); pH 8.5 (5-8)
[2019-05-12 19:20] LABS: WBC >50 HPF (0-5)
[2019-05-12 19:21] LABS: Bacteria Packed HPF (Negative); C & S Indicated? C&S Done As Ordered
== END 2019-05-12 19:11 ==
LOC: NCHCN 18:51
PROVIDERS: PCP Family Medicine; Visit Provider Family Medicine
DX: N39.0 Urinary tract infection, site not specified (principal)
CPT/HCPCS: 81003; 81015; 87086

== ENCOUNTER 2019-05-30 12:38 | Outpatient (REF) | payer MEDICARE, MEDICAID, SELFPAY | END 2019-05-30 12:58 | LOC: LBN 12:38 | PROVIDERS: PCP Family Medicine; Visit Provider Family Medicine | DX: N39.0 Urinary tract infection, site not specified (principal) | CPT/HCPCS: 87077; 87086; 87186 ==

== ENCOUNTER 2019-06-02 15:31 | Emergency (ER) | payer MEDICARE, MEDICAID, SELFPAY ==
[2019-06-02 15:33] VITALS: BP 146/76; PULSE 104; RESP 18; TEMP 37; O2SAT 99
--- NOTE | 2019-06-02 15:46 | DI.RAD_ITS ---
EXAM: XR HIP LT COMPLETE AP PELVIS INDICATION: pain s/p fall. COMPARISON: from 09/27/2016 TECHNIQUE: 2D digital imaging was performed. FINDINGS: Chronic pelvic deformity noted with absent right femoral head. No acute fracture seen. No change fr om 09/27/2016. IMPRESSION:
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
[2019-06-02 16:20] LABS: Abs Immature Grans 0.03 k/cumm (0.0-0.09); Absolute Basophil Count 0.02 k/cumm (0.0-0.2); Absolute Eosinophil Count 0.52 k/cumm (0.0-0.7); Absolute Lymphocyte Count 2.35 k/cumm (1.2-3.4); Absolute Monocyte Count 1.24 k/cumm (0.11-0.7); Basophils % 0.2; Eosinophils % 4.2; HCT 25.7 % (40.0-50.0); HGB 8.4 g/dL (13.5-17.5); Immature Grans % 0.2; Mean Corp. HGB Concentration 32.7 g/dL (32.0-36.0); Mean Corpuscular Hemoglobin 30.1 pg (27.0-33.0); Mean Corpuscular Volume 92.1 fL (80-95); Mean Platelet Volume 9.5 fL (8.0-11.0); Neutrophils % 66.4; Platelet Count 265 x1000/uL (130-400); RBC 2.79 m/cumm (4.50-6.00); RBC Distribution Width 15.5 % (11.8-14.1); White Blood Cell Count 12.35 k/cumm (4.4-10.8)
[2019-06-02 16:33] LABS: ALT 14 U/L (16-63); AST 15 U/L (15-37); Albumin 2.7 g/dL (3.4-5.0); Alkaline Phosphatase 170 U/L (46-116); Anion Gap 8.6 mmol/L (3-11); BUN 45 mg/dL (7-18); Bilirubin, Total 0.4 mg/dL (0.2-1.0); CO2 30.4 mmol/L (21.0-32.0); Calcium 8.6 mg/dL (8.5-10.1); Chloride 95 mmol/L (98-107); Estimated GFR 8.74 (mL/min/1.73m2); Glucose 136 mg/dL (70-100); Potassium 4.8 mmol/L (3.5-5.1); Sodium 134 mmol/L (136-145); Total Protein 7.7 g/dL (6.4-8.2)
[2019-06-02 16:36] LABS: CREATININE 6.59 mg/dL (0.70-1.30)
[2019-06-02 16:43] LABS: INR 1.1 (0.9-1.1); Prothrombin Time 10.9 sec (9.3-11.0)
== END 2019-06-02 17:50 | disposition home or self-care (01) ==
PROVIDERS: Emergency Provider Emergency Medicine; PCP Family Medicine
DX: S70.02XA Contusion of left hip, initial encounter (principal); W05.0XXA Fall from non-moving wheelchair, initial encounter; G82.20 Paraplegia, unspecified; I12.9 Hypertensive chronic kidney disease with stage 1 through stage 4 chronic kidney disease, or unspecified chronic kidney disease; N18.4 Chronic kidney disease, stage 4 (severe); Z99.3 Dependence on wheelchair
CPT/HCPCS: 80053; 96374; 99284; 73502; 85025; 85610; 85730

== ENCOUNTER 2019-06-05 11:06 | Emergency (ER) | payer MEDICARE, MEDICAID, SELFPAY ==
[2019-06-05] VITALS (26 sets, daily range): BP systolic 124–147; BP diastolic 61–89; PULSE 90–101; RESP 13–20; TEMP 36.7–36.9; O2SAT 65–100
--- NOTE | 2019-06-05 11:25 | DI.RAD_ITS ---
EXAM: XR FEMUR LT INDICATION: notable deformity. COMPARISON: No exams were available for comparison TECHNIQUE: 2D digital imaging was performed. FINDINGS: Five views were obtained and show a moderately displaced mid femoral fracture with a small free fract ure fragment. The fracture is in distal diaphyseal metaphyseal region. IMPRESSION:
--- NOTE | 2019-06-05 11:32 | ED.GENADUL_ITS ---
Discharge Plan Disposition Patient Disposition: [facility] Condition: Stable Discharge Details Chief Complaint: GenMedical Clinical Impression: Femur fracture, Acute UTI, Chronic paraplegia, Pressure ulcer Primary Care Provider: Keegan Cruz ED Provider: Fly Freedman Home Meds and New Rx's Prescriptions: No Action amlodipine [Norvasc] 5 mg tablet 5 mg PO DAILY Qty: 30 RF: 0 ciprofloxacin HCl 250 mg tablet 250 mg PO ONCE Qty: 5 RF: 0 clonazepam 1 mg tablet 1 mg PO BID Qty: 60 RF: 5 Ensure High Protein 237 ML liquid 237 ml PO PRN RF: 0 tramadol 50 mg tablet 50 mg PO TID PRN (Reason: pain) Qty: 30 RF: 3 cyanocobalamin (vitamin B-12) [Vitamin B-12] 500 MCG tablet 1,000 mcg PO DAILY Qty: 90 RF: 0 venlafaxine [Effexor XR] 150 MG capsule,extended release 24hr 150 mg PO DAILY RF: 0 ferrous sulfate 325 MG tablet 325 mg PO DAILY RF: 0 gabapentin 300 MG capsule 300 mg PO HS RF: 0 calcitriol 0.25 MCG capsule 0.25 mcg PO DAILY Qty: 30 RF: 0 calcium acetate 667 MG capsule 1,334 mg PO AC Qty: 180 RF: 0 sodium bicarbonate 650 MG tablet 650 mg PO TID Qty: 60 RF: 0 Medical Decision Making This is a 59-year-old male with a past medical history of renal failure on dialysis who still does urinate, chronic decubitus ulcer and right knee ulcer, paraplegia secondary to chronic spinal cord injury, regular catheterization, chronic anemia, hypertension, who presents today for evaluation of fatigue. Patient is a notably poor historian. He was supposed to go to dialysis today but has not yet gone. Fatigue symptoms are notably nonspecific. He denies fever chest pain but does admit to mild cloudiness in his urine. Of note he was here 3 days ago and he had complained of hip pain at that time, hip x-ray was negative. Since that episode he has noticed that his leg has been wobbly. Physical exam demonstrates chronic decubitus ulcers and right knee pressure ulcer, unchanged with no evidence of significant erythema. Left femur appears to have notable deformity and concern for mid to distal shaft fracture. Pulses are intact. Sensation is at chronic baseline. Stat EKG was ordered and shows no hyperacute T wave changes, suspect hyperkalemia to be less likely. We will evaluate for laboratory abnormalities, sources of infection. Patient is minimally tachycardic, he is not on blood thinners, with this fracture and concern for potential PE. We will get a CTA of the chest. We will gently rehydrate. 1:51 PM Patient's laboratory work-up has returned, electrolytes notably unremarkable, renal function at baseline, hemoglobin is slightly low at 8.0, white count near baseline at 12.53, platelets normal. Urinalysis shows large blood, large leuk esterase, RBCs greater than 50, WBCs not applicable. CT scan of the chest shows no evidence of PE, fat embolism, severe pneumonia or other significant abnormality. There are small pleural effusions, but these are otherwise unremarkable. X-ray of the femur demonstrates notable fracture at the mid to distal shaft. There is moderate displacement. With no clear source of his fatigue it may be from his mild chronic anemia, his chronic disease, mild dehydration. Questionable potential urinary tract infection, we will treat out of an abundance precaution. We will contact orthopedics for further recommendations for his fracture. 1:59 PM Review of patient's previous cultures demonstrate evidence of Acinetobacter baumanii Complex and E. coli. Resistance and susceptibility patterns are certainly challenging, however he does appear to be consistently sensitive to Bactrim. Although the patient does have renal failure he is regularly dialyzed. We will treat with Bactrim now. 4:[address] Ordonez has evaluated the x-rays, and does recommend surgical management. However because of the patient's dialysis needs he will not be able to stay here at [facility]. Orthopedics does recommend that we contact [facility]. I did contact [facility] and discussed the case with Dr. Daugherty from orthopedics and Dr. Houston from medicine, they agree with the assessment and plan and recommend transfer to [facility] for further management. Dr. Daugherty of orthopedics did request x-rays again of the hip knee and tib-fib, these were ordered and show no evidence of any other acute processes. Patient's pain is currently managed. He will be transferred via [facility] to [facility] for further management. I have extensively reviewed the treatment plan with the patient. I have addressed all patient concerns at this time. I have also discussed the plan with the admitting physician and they agree with the current assessment and plan and have agreed to assume responsibility for the patient. All parties demonstrate verbal understanding and agreement with our assessment and plan at this time. At time of transfer the patient was reassessed and continued to demonstrate current medical stability. No signs of acute respiratory distress requiring intubation, hemodynamic instability requiring pressor support, or rapidly declining mental status. The patient is stable for transport. EKG 11: 17 Rate 98, sinus rhythm, WI slightly shortened at 98, the remainder the intervals are relatively benign, no significant ST elevations or depressions, no evidence of delta wave. No evidence of hyper acute T wave peaking. FINDINGS: Five views were obtained and show a moderately displaced mid femoral fracture with a small free fracture fragment. The fracture is in distal diaphyseal metaphyseal region. FINDINGS: CT angiography of chest was performed bolus infusion 1 cc of 350. Images obtained through the upper show unremarkable appearance of visualized portions liver and spleen. There are small bilateral pleural effusions left greater than right. pleural and pulmonary scarring noted in the lung apices tracheobronchial tree appears intact. No mediastinal or adenopathy. There is question decreased flow through the SVC but artifact from dense contrast material obscures this area. There is no evidence of pulmonary embolic disease. Thoracic aorta and major branches appear intact. No cardiac enlargement. Right subclavian catheter terminates in the right atrium. IMPRESSION: No evidence of pulmonary embolic disease. Small bilateral pleural effusions noted. EXAM: XR KNEE LT 3V AP,LAT,MARTHA INDICATION: known left femur fracture, eval for other fracture. COMPARISON: XR knee RT 3V AP,lat,martha from 01/28/2019 TECHNIQUE: 2D digital imaging was performed. FINDINGS: Three views were obtained. Degenerative changes noted involving the knee. No acute fracture seen at the knee. Note is made of the previously described diaphyseal metaphyseal moderately displaced femoral fracture IMPRESSION: FINDINGS: Three views were obtained. Severe DJD of the ankle. No acute fracture seen. IMPRESSION: HPI General Date/Time Provider Initiated Documentation: 06/05/19 11:07 . HPI Narrative: This is a 59-year-old male with a past medical history of renal failure on dialysis who still does urinate, chronic decubitus ulcer and right knee ulcer, paraplegia secondary to chronic spinal cord injury, regular catheterization, chronic anemia, hypertension, who presents today for evaluation of fatigue. He receives his dialysis Sunday. He was scheduled for dialysis today but has not yet gone. Patient is a notably poor historian, but states that over the last 24 to 48 hours he has been mildly fatigued. He denies any chest pain or significant shortness of breath. As noted he is a very poor historian. Of note he was here 3 days ago and had complaint of left hip pain. At that time x-ray of the hip was performed which was noted to be negative. However the patient states that his leg is been kind of wobbly since then. He denies any significant pain in his leg secondary to his paraplegia. He was supposed to have his bandages changed by home health recently but this was not done, and he has had no significant changes for the last few days. He does admit to some increased cloudiness for his urine. He denies any fevers. He denies any other complaints at this time. Related Data Home Medications Medication Instructions Recorded Confirmed Ensure High Protein 237 ml PO PRN 12/16/15 06/05/19 cyanocobalamin (vitamin B-12) 1,000 mcg PO DAILY #90 tab 10/08/16 06/05/19 [Vitamin B-12] calcitriol 0.25 mcg PO DAILY #30 cap 12/29/16 06/05/19 calcium acetate 1,334 mg PO AC #180 cap 12/29/16 06/05/19 sodium bicarbonate 650 mg PO TID #60 tab 12/29/16 06/05/19 venlafaxine [Effexor XR] 150 mg PO DAILY 08/15/17 06/05/19 ferrous sulfate 325 mg PO DAILY tab 08/30/17 06/05/19 gabapentin 300 mg PO HS 02/21/18 06/05/19 amlodipine 5 mg tablet 5 mg PO DAILY #30 tab 04/09/19 06/05/19 tramadol 50 mg tablet 50 mg PO TID PRN #30 tab 05/06/19 06/05/19 ciprofloxacin HCl 250 mg tablet 250 mg PO ONCE #5 tab 05/12/19 06/05/19 clonazepam 1 mg tablet 1 mg PO BID #60 tab 05/12/19 06/05/19 Previous Rx's Medication Instructions Recorded cyanocobalamin (vitamin B-12) 1,000 mcg PO DAILY #90 tab 10/08/16 [Vitamin B-12] calcitriol 0.25 mcg PO DAILY #30 cap 12/29/16 calcium acetate 1,334 mg PO AC #180 cap 12/29/16 sodium bicarbonate 650 mg PO TID #60 tab 12/29/16 ferrous sulfate 325 mg PO DAILY tab 08/30/17 amlodipine 5 mg tablet 5 mg PO DAILY #30 tab 04/09/19 tramadol 50 mg tablet 50 mg PO TID PRN #30 tab 05/06/19 ciprofloxacin HCl 250 mg tablet 250 mg PO ONCE #5 tab 05/12/19 clonazepam 1 mg tablet 1 mg PO BID #60 tab 05/12/19 Allergies Allergy/AdvReac Type Severity Reaction Status Date / Time oxycodone Allergy Skin Rash Unverified 06/05/19 11:41 topiramate [From Topamax] AdvReac Severe put me Unverified 06/05/19 11:41 out, couldn't wake me up General Stated Complaint: GenMedical AMY: 3 Review of Systems Review of Systems ROS Unobtainable: All systems reviewed & are unremarkable except as noted in HPI and below PFSH Medical History (Updated 05/12/19 @ 13:23 by Keegan Cruz) Agoraphobia Anxiety Cerumen impaction Chronic anemia Chronic anemia (Acute) Chronic pain 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, stage II Chronic ulcer of left foot CKD (chronic kidney disease), stage IV (Acute) Decubitus ulcer Decubitus ulcer of coccyx (Acute) Depression (emotion) Elevated TSH ESRD (end stage renal disease) on dialysis (Acute) Essential hypertension (Acute) Hematuria (Acute) Hypogonadism in male (Acute) Neurogenic bladder Paraplegia Suicidal ideation Testosterone deficiency Surgical History (Updated 03/12/19 @ 12:01 by Joanne Hernandez) Colostomy Hip debridement, with bone resection s/p right hip remova for bony infection (Inactive) Spinal Fusion Family History (Updated 04/16/19 @ 13:18 by Pedro Landa) Mother Depression Diabetes Father Cancer Heart disease Social History (Updated 04/16/19 @ 13:17 by Pedro Landa) Smoking/Tobacco Use Status: Current every day Tobacco Type: cigarettes Quit status: not considering quitting Second Hand Exposure: Yes Alcohol Intake: former Drug use: Never Substance use type: does not use Caregiver/Support person: Yes Household members: spouse and friend(s) Housing: house Do you need help understanding health information?: Often Pets and animals: Yes Pets and animals: cat(s) and dog(s) Sexually active: No Do you think of yourself as: straight/heterosexual What is your relationship status?: How often do you talk on the phone with friends or family?: never How often do you get together with friends or relatives?: never How often do you attend catholic or protestant services?: decline to answer Do you belong to any clubs or organized social groups?: no Panel score (0-1 are the most socially isolated patients): 1 Marcelle/Shinto: Seventh Day Confucianism Special marcelle needs: No Seatbelt use: always Helmet use: No Drive intox or ride w/intox road train driver: No Do you feel safe at home: Yes Do you feel safe in your relationship?: Yes Exam Narrative Exam Narrative: 1.Const: Well-nourished, Well-developed, appearing stated age 2.Eyes: PERRL, no conjunctival injection, and symmetrical lids. 3.ENT: Atraumatic external nose and ears. Moist MM. Neck: Symmetric, trachea midline, No thyromegaly. 4.CVS: +S1/S2, No murmurs or gallops. Peripheral pulses 2+ and equal in all extremities. Brisk capillary refill in all extremities. 5.RESP: Unlabored respiratory effort. Clear to auscultation bilaterally. No wheezes rales or rhonchi 6.GI: Soft, Nontender/Nondistended, No hepatosplenomegaly. No guarding or rebound. Ostomy is in place on left hand side, no blood, stoma is normal colored. Stool is yellow/brown. 7.MSK: Chronic paraplegia, no hip or pelvis pain, right lower extremity is atrophied, trace pitting edema, pulses intact bilaterally. Left lower extremity demonstrates notable mid to distal shaft femur abnormality, appears unstable. No tenderness. Knee is unremarkable. Trace pitting edema in left lower extremity, dorsalis pedis posterior tibial pulse +2 bilaterally. 8.Skin: Chronic stage III decubitus ulcer on the buttock, no erythema, minimal drainage. No evidence of fluctuance. Stage III chronic pressure ulcer on the right knee, no erythema, fluctuance, or significant drainage. Bandaging was replaced on both. 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 Sensation grossly intact for the upper extremities. Notably diminished sensation chronically in the lower extremities, no movement of the lower extremities. Patient appears to be a chronic baseline per patient 10.Psych: (AAO) x3. Appropriate mood and affect Course Vital Signs Vital signs: Vital Signs Temperature 36.9 C 06/05/19 11:11 Pulse 101 H 06/05/19 11:11 Respiratory Rate 20 06/05/19 11:11 Blood Pressure 124/62 06/05/19 11:11 Pulse Oximetry 98 06/05/19 11:11 Temperature 36.9 C 06/05/19 11:11 Temperature Source Oral 06/05/19 11:11 Pulse 101 H 06/05/19 11:11 Respiratory Rate 20 06/05/19 11:11 Blood Pressure 124/62 06/05/19 11:11 Blood Pressure Position Sitting 06/05/19 11:11 Pulse Oximetry 98 06/05/19 11:11 Oxygen Delivery Method Room Air 06/05/19 11:11 Oxygen Flow Rate 0 06/05/19 11:11 Pain Level 8 06/05/19 11:11
[2019-06-05 11:44] LABS: Abs Immature Grans 0.03 k/cumm (0.0-0.09); Absolute Basophil Count 0.03 k/cumm (0.0-0.2); Absolute Lymphocyte Count 2.09 k/cumm (1.2-3.4); Absolute Monocyte Count 1.17 k/cumm (0.11-0.7); Basophils % 0.2; Eosinophils % 3.8; HCT 24.8 % (40.0-50.0); Immature Grans % 0.2; Lymphocytes % 16.7; Mean Corp. HGB Concentration 32.3 g/dL (32.0-36.0); Mean Corpuscular Hemoglobin 29.6 pg (27.0-33.0); Mean Corpuscular Volume 91.9 fL (80-95); Mean Platelet Volume 9.1 fL (8.0-11.0); Monocytes % 9.3; Neutrophils % 69.8; Platelet Count 365 x1000/uL (130-400); RBC Distribution Width 15.2 % (11.8-14.1); White Blood Cell Count 12.53 k/cumm (4.4-10.8)
[2019-06-05 11:48] LABS: Lactate 1.2 mmol/L (0.6-1.4)
[2019-06-05 11:50] LABS: Absolute Eosinophil Count 0.48 k/cumm (0.0-0.7); Absolute Neutrophil Count 8.75 k/cumm (1.2-6.7)
--- NOTE | 2019-06-05 11:50 | DI.CT_ITS ---
EXAM: CT CHEST PE CTA CLINICAL HISTORY: suspected femur fx, paraplegic, eval for clot/PE. TECHNIQUE: COMPARISON: CT CHEST PE CTA from 02/04/2019 FINDINGS: CT angiography of chest was performed bolus infusion 1 cc of 350. Images obtained through the upper show unremarkable appearance of visualized portions liver and spleen. There are small bilateral pleu ral effusions left greater than right. pleural and pulmonary scarring noted in the lung apices trac heobronchial tree appears intact. No mediastinal or adenopathy. There is question decreased flow th rough the SVC but artifact from dense contrast material obscures this area. There is no evidence of pulmonary embolic disease. Thoracic aorta and major branches appear intact. No cardiac enlargement. Right subclavian catheter terminates in the right atrium. IMPRESSION: No evidence of pulmonary embolic disease. Small bilateral pleural effusions noted.
[2019-06-05 12:04] LABS: Anisocytosis 2+; Diff Comment RBC Morph Reviewed
[2019-06-05 12:05] LABS: Hypochromasia 1+; Magnesium 2.3 mg/dL (1.8-2.4); Polychromasia Present
[2019-06-05 12:09] LABS: ALT 11 U/L (16-63); AST 15 U/L (15-37); Albumin 2.6 g/dL (3.4-5.0); Alkaline Phosphatase 190 U/L (46-116); Anion Gap 9.6 mmol/L (3-11); BUN 46 mg/dL (7-18); Bilirubin, Total 0.5 mg/dL (0.2-1.0); CO2 30.4 mmol/L (21.0-32.0); Calcium 8.4 mg/dL (8.5-10.1); Chloride 93 mmol/L (98-107); Estimated GFR 9.31 (mL/min/1.73m2); Glucose 113 mg/dL (70-100); Potassium 4.8 mmol/L (3.5-5.1); Sodium 133 mmol/L (136-145); Total Protein 7.6 g/dL (6.4-8.2)
[2019-06-05 12:13] LABS: CREATININE 6.24 mg/dL (0.70-1.30)
--- NOTE | 2019-06-05 12:19 | NUR.NOTE ---
Nursing Note: pt returned from ct, placed back on the monitor denies any needs at this time. call lam within reach. continue to monitor.
[2019-06-05] MEDS: Normal Saline 1,000 ML 1000 ML IV (12:40)
[2019-06-05] MEDS: MORPHine 10 MG/ML VIAL 4 MG IVP ×2 (12:49→16:51)
[2019-06-05 12:53] LABS: Bilirubin Negative (Negative); Blood Large (Negative); Clarity Cloudy (Clear); Glucose Negative (Negative); Ketones Negative (Negative); Leukocyte Esterase Large (Negative); Nitrite Negative (Negative); Urobilinogen 0.2 EU/dL (Up TO 0.2)
[2019-06-05 13:07] LABS: C & S Indicated? Yes; RBC >50 (0-2)
[2019-06-05] MEDS: Sulfameth/Trimeth DS TAB 1 TAB PO (14:05)
--- NOTE | 2019-06-05 15:20 | DI.RAD_ITS ---
EXAM: XR TIB/FIB LT INDICATION: known left femur fracture, eval for other fracture. COMPARISON: XR FEMUR LT from 06/05/2019 TECHNIQUE: 2D digital imaging was performed. FINDINGS: Three views were obtained. Severe DJD of the ankle. No acute fracture seen. IMPRESSION:
--- NOTE | 2019-06-05 15:20 | DI.RAD_ITS ---
EXAM: XR KNEE LT 3V AP,LAT,AJAY INDICATION: known left femur fracture, eval for other fracture. COMPARISON: XR knee RT 3V AP,lat,ajay from 01/28/2019 TECHNIQUE: 2D digital imaging was performed. FINDINGS: Three views were obtained. Degenerative changes noted involving the knee. No acute fracture seen at the knee. Note is made of the previously described diaphyseal metaphyseal moderately displaced femo ral fracture IMPRESSION:
--- NOTE | 2019-06-05 15:24 | DI.RAD_ITS ---
EXAM: XR HIP LT COMPLETE AP PELVIS INDICATION: left femur fracture. COMPARISON: XR HIP LT COMPLETE AP PELVIS from 06/02/2019 TECHNIQUE: 2D digital imaging was performed. FINDINGS: Three views were obtained. End-stage deformity and pseudoarthrosis right hip. Severe DJD left hip. No definite acute fracture. If there is a high clinical suspicion of fracture additional evaluation with CT would be recommended IMPRESSION:
== END 2019-06-05 17:08 | disposition short-term general hospital (02) ==
PROVIDERS: Emergency Provider Student in an Organized Health Care Education/Training Program; PCP Family Medicine
DX: S72.392A Other fracture of shaft of left femur, initial encounter for closed fracture (principal); X58.XXXA Exposure to other specified factors, initial encounter; N39.0 Urinary tract infection, site not specified; L89.890 Pressure ulcer of other site, unstageable; G82.20 Paraplegia, unspecified; N18.6 End stage renal disease; I12.0 Hypertensive chronic kidney disease with stage 5 chronic kidney disease or end stage renal disease; Z96.0 Presence of urogenital implants; Z99.2 Dependence on renal dialysis
CPT/HCPCS: 36415; 71275; 73552; 73562; 80053; 93005; 96361; 96374; 99285; 73502; 73590; 81003; 81015; 83605; 83735; 85025; 87086; 93010; J2270

== ENCOUNTER 2019-07-07 16:27 | Inpatient (IN) | payer MEDICARE, MEDICAID, SELFPAY ==
[2019-07-07] VITALS (21 sets, daily range): BP systolic 142–161; BP diastolic 64–85; PULSE 93–99; RESP 0–25; TEMP 36.8–37.1; O2SAT 92–100
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
[2019-07-07 16:57] LABS: Lactate 0.9 mmol/L (0.6-1.4)
[2019-07-07 16:58] LABS: Abs Immature Grans 0.02 k/cumm (0.0-0.09); Absolute Basophil Count 0.05 k/cumm (0.0-0.2); Absolute Eosinophil Count 0.44 k/cumm (0.0-0.7); Absolute Lymphocyte Count 1.89 k/cumm (1.2-3.4); Absolute Monocyte Count 0.82 k/cumm (0.11-0.7); Absolute Neutrophil Count 7.28 k/cumm (1.2-6.7); Basophils % 0.5; Eosinophils % 4.2; HCT 32.7 % (40.0-50.0); HGB 10.1 g/dL (13.5-17.5); Immature Grans % 0.2; Mean Corp. HGB Concentration 30.9 g/dL (32.0-36.0); Mean Corpuscular Hemoglobin 28.4 pg (27.0-33.0); Mean Corpuscular Volume 91.9 fL (80-95); Mean Platelet Volume 8.9 fL (8.0-11.0); Monocytes % 7.8; Neutrophils % 69.3; Platelet Count 471 x1000/uL (130-400); RBC 3.56 m/cumm (4.50-6.00)
[2019-07-07] MEDS: Normal Saline 1,000 ML 1000 ML IV (17:00)
[2019-07-07 17:14] LABS: INR 1.1 (0.9-1.1); Prothrombin Time 11.2 sec (9.3-11.0)
[2019-07-07] MEDS: Ondansetron 4 MG/2 ML VIAL IVP (17:15)
[2019-07-07] MEDS: Normal Saline Flush 10 ML SYR IVP (17:18)
[2019-07-07 17:24] LABS: ALT 10 U/L (16-63); AST 18 U/L (15-37); Albumin 2.8 g/dL (3.4-5.0); Alkaline Phosphatase 197 U/L (46-116); Anion Gap 11.5 mmol/L (3-11); BUN 22 mg/dL (7-18); Bilirubin, Total 0.4 mg/dL (0.2-1.0); CO2 29.5 mmol/L (21.0-32.0); Chloride 96 mmol/L (98-107); Estimated GFR 9.72 (mL/min/1.73m2); Glucose 72 mg/dL (70-100); Sodium 137 mmol/L (136-145); Total Protein 8.3 g/dL (6.4-8.2)
[2019-07-07 17:29] LABS: CREATININE 6.01 mg/dL (0.70-1.30)
[2019-07-07 18:17] LABS: D-Dimer 6492 ng/mlFEU (<500)
--- NOTE | 2019-07-07 18:55 | DI.RAD_ITS ---
EXAM: XR CHEST 2V PA LATERAL INDICATION: SOB. COMPARISON: XR CHEST 2V PA LATERAL from 02/23/2019 TECHNIQUE: 2D digital imaging was performed. FINDINGS: The heart size and pulmonary vasculature are within normal limits. The dual lumen central venous catheter is noted with its tip at the junction of the superior vena cav a and right atrium. The superior aspect of spinal rods are seen in lower thoracic spine. There is an infiltrate seen in the left lower lobe. On the lateral view, there appear to be small bilateral pleural effusions. No pneumothorax is identified. IMPRESSION: 1. Left basilar infiltrate. This is suspicious for pneumonia. 2. Small bilateral pleural effusions suspected.
[2019-07-07 19:24] LABS: Troponin I < 0.05 ng/mL (0.00-0.06)
--- NOTE | 2019-07-07 20:36 | DI.VRAD_ITS ---
PROCEDURE INFORMATION: Exam: XR Chest, 2 Views Exam date and time: 07/07/2019 6:56 PM Clinical history: 59 years old, male; Shortness of breath; Patient HX: SOB TECHNIQUE: Imaging protocol: XR of the chest Views: 2 views. COMPARISON: CR XR CHEST 2V PA LATERAL 23/02/2019 00:50 FINDINGS: Tubes, catheters and devices: Right IJ line in place with the tip near the SVC/RA junction with 2 ports. Lungs: New bilateral infiltrates. Pleural space: Suspect bilateral pleural effusions on the lateral view. No pneumothorax. Heart/Mediastinum: Unremarkable. No cardiomegaly. Bones/joints: Postsurgical changes of the lower thoracic and lumbar spine. IMPRESSION: Bilateral pneumonia. Suspect bilateral pleural effusions, and noted on the lateral view. Dictated and Authenticated by: Celena Garcia MD. Ordering:RENETTA Herrera MD
--- NOTE | 2019-07-07 20:43 | NUR.NOTE ---
Stage 2 to right lateral knee, stage 4 to asiya buttocks. Pt turned to left side, pillow placed. RA sat to 90%, PA [place] aware, placed on 2L O2, sat to 95%. Denies SOB. Plan for admission, VQ scan in am. Heparin infusing a/o.
--- NOTE | 2019-07-07 21:25 | NUR.NOTE ---
Suprapubic tube bag changed, pt reports last changed ?3 weeks ago. Report to Ryne, pt transported to [facility] with all belongings.
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
[2019-07-08 01:15] VITALS: BP 144/74; PULSE 95; RESP 12; TEMP 37.5; O2SAT 99
[2019-07-08] MEDS: traMADol 50 MG TAB PO (01:31)
[2019-07-08] MEDS: CEFEPIME 1 GM in Normal Saline 50 ML IVPB (03:30)
[2019-07-08] MEDS: Normal Saline 500 ML 100 ML IV (03:30)
[2019-07-08 03:45] VITALS: BP 138/74; PULSE 96; RESP 19; TEMP 36.9; O2SAT 98
[2019-07-08] MEDS: Normal Saline Flush 10 ML SYR IVP (04:25)
[2019-07-08] MEDS: Doxycycline Hyclate 100 MG CAP PO (06:55)
[2019-07-08 07:41] LABS: Abs Immature Grans 0.02 k/cumm (0.0-0.09); Absolute Basophil Count 0.04 k/cumm (0.0-0.2); Absolute Eosinophil Count 0.49 k/cumm (0.0-0.7); Absolute Monocyte Count 0.71 k/cumm (0.11-0.7); Absolute Neutrophil Count 6.21 k/cumm (1.2-6.7); Basophils % 0.4; Eosinophils % 5.1; HCT 30.1 % (40.0-50.0); HGB 9.2 g/dL (13.5-17.5); Immature Grans % 0.2; Lymphocytes % 21.9; Mean Corp. HGB Concentration 30.6 g/dL (32.0-36.0); Mean Corpuscular Hemoglobin 28.2 pg (27.0-33.0); Mean Corpuscular Volume 92.3 fL (80-95); Monocytes % 7.4; Platelet Count 414 x1000/uL (130-400); RBC 3.26 m/cumm (4.50-6.00); RBC Distribution Width 14.8 % (11.8-14.1); White Blood Cell Count 9.57 k/cumm (4.4-10.8)
[2019-07-08 07:51] LABS: Anion Gap 11.5 mmol/L (3-11); BUN 25 mg/dL (7-18); CO2 26.5 mmol/L (21.0-32.0); Calcium 8.2 mg/dL (8.5-10.1); Chloride 99 mmol/L (98-107); Estimated GFR 8.68 (mL/min/1.73m2); Glucose 59 mg/dL (70-100); Potassium 4.3 mmol/L (3.5-5.1); Sodium 137 mmol/L (136-145)
[2019-07-08 07:59] LABS: CREATININE 6.63 mg/dL (0.70-1.30)
[2019-07-08 08:03] LABS: PTT Activated 48.6 sec (21.0-31.4)
[2019-07-08 08:12] LABS: C-Reactive Protein 10.89 mg/dL (0.0-0.3)
[2019-07-08] MEDS: Venlafaxine 150 MG CAPCR PO (08:33)
[2019-07-08] MEDS: Calcitriol 0.25 MCG CAP PO (08:33)
[2019-07-08] MEDS: Cyanocobalamin 500 MCG TAB 1000 MCG PO (08:33)
[2019-07-08] MEDS: Ferrous Sulfate 325 MG TAB PO (08:34)
[2019-07-08] MEDS: amLODIPine 5 MG TAB PO (08:34)
[2019-07-08] MEDS: Sodium Bicarbonate 650 MG TAB PO (08:34)
[2019-07-08] MEDS: clonazePAM 1 MG TAB PO (08:34)
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
[2019-07-08] MEDS: Acetaminophen 325 MG TAB PO (08:50)
[2019-07-08 09:01] LABS: ESR 103 mm/hr (1-20)
== END 2019-07-08 11:10 | disposition short-term general hospital (02) | DRG 175 ==
LOC: ER 17:38 → MS 21:12
PROVIDERS: Admitting Provider Internal Medicine; Emergency Provider Physician Assistant; PCP Family Medicine; Visit Provider Internal Medicine
DX: I26.99 Other pulmonary embolism without acute cor pulmonale (principal); L89.154 Pressure ulcer of sacral region, stage 4; L89.224 Pressure ulcer of left hip, stage 4; J18.9 Pneumonia, unspecified organism; N18.6 End stage renal disease; J90 Pleural effusion, not elsewhere classified; J98.11 Atelectasis; G82.20 Paraplegia, unspecified; T45.516A Underdosing of anticoagulants, initial encounter; Y95 Nosocomial condition; Z99.2 Dependence on renal dialysis; T14.8XXS Other injury of unspecified body region, sequela; S72.002D Fracture of unspecified part of neck of left femur, subsequent encounter for closed fracture with routine healing; Z93.51 Cutaneous-vesicostomy status; Z93.3 Colostomy status; D53.9 Nutritional anemia, unspecified; Z86.711 Personal history of pulmonary embolism
CPT/HCPCS: 36415; 80048; 80053; 85652; 87040; 93005; 96361; 96365; 99223; 99238; 99285; 71046; 81003; 83605; 84484; 85025; 85379; 85610; 85730; 86140; 87086; 93010; J2405; J3370

== ENCOUNTER 2019-07-24 14:35 | Emergency (ER) | payer MEDICARE, MEDICAID, SELFPAY ==
[2019-07-24] VITALS (24 sets, daily range): BP systolic 140–160; BP diastolic 78–91; PULSE 88–94; RESP 16–18; TEMP 36.6; O2SAT 95–100
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
[2019-07-24] MEDS: Normal Saline 250 ML 500 ML IV (14:59)
[2019-07-24 15:05] LABS: Absolute Basophil Count 0.12 k/cumm (0.0-0.2); Absolute Eosinophil Count 0.33 k/cumm (0.0-0.7); Absolute Lymphocyte Count 2.45 k/cumm (1.2-3.4); Absolute Monocyte Count 0.98 k/cumm (0.11-0.7); Absolute Neutrophil Count 3.39 k/cumm (1.2-6.7); Basophils % 1.7; Eosinophils % 4.5; HGB 10.7 g/dL (13.5-17.5); Lymphocytes % 33.7; Mean Corp. HGB Concentration 30.6 g/dL (32.0-36.0); Mean Corpuscular Hemoglobin 28.2 pg (27.0-33.0); Mean Corpuscular Volume 92.3 fL (80-95); Mean Platelet Volume 9.8 fL (8.0-11.0); Monocytes % 13.5; Neutrophils % 46.6; Platelet Count 311 x1000/uL (130-400); RBC 3.79 m/cumm (4.50-6.00); White Blood Cell Count 7.27 k/cumm (4.4-10.8)
[2019-07-24 15:19] LABS: ALT 15 U/L (16-63); AST 26 U/L (15-37); Albumin 2.6 g/dL (3.4-5.0); Alkaline Phosphatase 205 U/L (46-116); Anion Gap 5.4 mmol/L (3-11); BUN 14 mg/dL (7-18); Bilirubin, Total 0.2 mg/dL (0.2-1.0); CO2 33.6 mmol/L (21.0-32.0); Calcium 8.6 mg/dL (8.5-10.1); Chloride 98 mmol/L (98-107); Estimated GFR 14.74 (mL/min/1.73m2); Glucose 133 mg/dL (74-106); Potassium 4.4 mmol/L (3.5-5.1); Sodium 137 mmol/L (136-145); Total Protein 7.7 g/dL (6.4-8.2)
[2019-07-24 15:27] LABS: CREATININE 4.19 mg/dL (0.70-1.30); Troponin I < 0.05 ng/Ml (<0.06)
--- NOTE | 2019-07-24 15:45 | DI.RAD_ITS ---
EXAM: XR CHEST 2V PA LATERAL CLINICAL HISTORY: weakness, recent pleural effusions TECHNIQUE: COMPARISON: XR CHEST 2V PA LATERAL from 07/07/2019 FINDINGS: Heart is not enlarged. Note is again made of Hernandez rods in thoracolumbar spine. There is right subclavian double lumen catheter. Lungs are predominantly clear except for a question of area of le ft infrahilar consolidation. No gross pleural effusion seen. IMPRESSION: Question left lower lobe pneumonia. Appropriate follow-up studies requested.
[2019-07-24] MEDS: traMADol 50 MG TAB PO (16:23)
--- NOTE | 2019-07-24 16:39 | NUR.NOTE ---
Nursing Note: urine culture specimen from cadena not the bag.
[2019-07-24 16:58] LABS: Bilirubin Negative (Negative); Blood Moderate (Negative); Clarity Cloudy (Clear); Glucose Negative (Negative); Ketones Negative (Negative); Leukocyte Esterase Moderate (Negative); Nitrite Negative (Negative); Urobilinogen 0.2 EU/dL (Up TO 0.2); pH 8.5 (5-8)
[2019-07-24 16:59] LABS: C & S Indicated? C&S Done As Ordered
--- NOTE | 2019-07-24 17:00 | DI.VRAD_ITS ---
PROCEDURE INFORMATION: Exam: XR Chest, 2 Views Exam date and time: 07/24/2019 3:45 PM Age: 59 years old Clinical history: Other: Weakness, recent pleural effusions TECHNIQUE: Imaging protocol: XR of the chest Views: 2 views. COMPARISON: CR XR CHEST 2V PA LATERAL 07/07/2019 7:07 PM FINDINGS/IMPRESSION: -Essentially stable small bilateral pleural effusions, slightly larger on the left. -Patchy airspace opacities in the left infrahilar region with associated bronchial wall thickening concerning for an infectious pneumonic process in the appropriate clinical setting. -Remainder of the lungs are clear. -Stable large bore/dual-lumen right subclavian catheter with tip in the right atrium. -Stable thoracic spine fixation. No acute skeletal abnormality. -Stable cardiomediastinal silhouette. -No other significant interval changes. Dictated and Authenticated by: Zackery Cannon MD. Ordering:RENETTA Herrera MD
== END 2019-07-24 17:55 | disposition home or self-care (01) ==
PROVIDERS: Emergency Provider Physician Assistant; PCP Family Medicine
DX: R53.1 Weakness (principal); N18.6 End stage renal disease; Z99.2 Dependence on renal dialysis; D53.9 Nutritional anemia, unspecified; I12.0 Hypertensive chronic kidney disease with stage 5 chronic kidney disease or end stage renal disease; L89.159 Pressure ulcer of sacral region, unspecified stage; L89.219 Pressure ulcer of right hip, unspecified stage; L89.229 Pressure ulcer of left hip, unspecified stage; N39.0 Urinary tract infection, site not specified; B96.89 Other specified bacterial agents as the cause of diseases classified elsewhere; Z96.0 Presence of urogenital implants
CPT/HCPCS: 36415; 51701; 80053; 93005; 96360; 99285; 71046; 81003; 81015; 83735; 84484; 85025; 87086; 93010

== ENCOUNTER 2019-08-02 23:44 | Emergency (ER) | payer MEDICARE, MEDICAID, SELFPAY ==
--- NOTE | 2019-08-02 23:31 | ED.GENADUL_ITS ---
Discharge Plan Disposition Patient Disposition: HOME Condition: Good Discharge Details Chief Complaint: Laceration Clinical Impression: Laceration Primary Care Provider: Keegan Cruz ED Provider: Fly Freedman Home Meds and New Rx's Prescriptions: New amoxicillin-pot clavulanate [Augmentin] 875-125 mg tablet 1 tab PO BID 10 Days Qty: 20 RF: 0 No Action amlodipine [Norvasc] 5 mg tablet 5 mg PO DAILY Qty: 30 RF: 0 clonazepam 1 mg tablet 1 mg PO BID Qty: 60 RF: 5 Ensure High Protein 237 ML liquid 237 ml PO PRN RF: 0 tramadol 50 mg tablet 50 mg PO TID PRN (Reason: pain) Qty: 30 RF: 3 cyanocobalamin (vitamin B-12) [Vitamin B-12] 500 MCG tablet 1,000 mcg PO DAILY Qty: 90 RF: 0 venlafaxine [Effexor XR] 150 MG capsule,extended release 24hr 150 mg PO DAILY RF: 0 ferrous sulfate 325 MG tablet 325 mg PO DAILY RF: 0 gabapentin 300 MG capsule 300 mg PO HS RF: 0 calcitriol 0.25 MCG capsule 0.25 mcg PO DAILY Qty: 30 RF: 0 calcium acetate 667 MG capsule 1,334 mg PO AC Qty: 180 RF: 0 sodium bicarbonate 650 MG tablet 650 mg PO TID Qty: 60 RF: 0 Discharge Instructions Instructions: Laceration (ED) Additional Instructions: At this time your laceration is superficial and does not require sutures. Additionally because it is been 24 hours since the inciting event it would be improper to suture this as it could cause more infection to be drawn into and reside into the small cup. Please take the antibiotic as directed twice daily. We have set up wound care to come and visit more frequently for you. If you notice any worsening of your symptoms, or any new symptoms such as vomiting, diarrhea, redness, return of the bleeding, fever, chills, shortness of breath, chest pain, numbness, weakness, or fainting , please return immediately to the emergency department for reevaluation. Please follow up with your primary care provider as soon as possible for reassessment and reevaluation. As always, it was a pleasure participating in your medical care today. Referrals: Keegan Cruz [Primary Care Provider] - Medical Decision Making This is a 59-year-old male with a past medical history of renal failure on dialysis who still does urinate, chronic decubitus ulcer foot ulcer and right knee ulcer, paraplegia secondary to chronic spinal cord injury, regular catheterization, chronic anemia, hypertension, who presents today for evaluation of laceration to his left lower extremity. He states that 24 hours ago his dog scraped the leg with the dog's claws. He had some mild bleeding since then. He tried bandaging at home, however it is continued to ooze. This evening he noticed the continued bleeding, contacted EMS who brought him to the ER for further evaluation. EMS placed quick clot on it bandaged it, they did note that the bandage that was on was distal to the laceration site, and not providing any coverage. Patient denies any red flags of fever or chills. The dog did not bite him, and the dog's vaccines are up-to-date. Tetanus is up-to-date. Exam demonstrates a mild superficial 3 to 4 cm laceration to the left hill. No active bleeding, no redness discharge or abnormality. Because of the 24 hours since the initial event it would be contraindicated to close wound, additionally there is no need to close the wound because it is notably superficial, well reapproximated on its own and definitely not gaping. The area was scrubbed and irrigated vigorously with a chlorhexidine scrub her and copious amounts of normal saline. No bleeding was present afterwards. Out of an abundance of precaution triple antibiotic ointment was applied, bandage of quick clot was applied, 4 x 4's were applied and the area was wrapped. Patient tolerated this well. Patient was given a dose of Augmentin here, as well as a dose to go home with and a prescription for. Because of the patient's inability to care for his own needs, notable difficulty with movement secondary to his paraplegia, he will require much closer wound care and management. We have contacted case management to help set up daily wound care for the patient which will be an increase from his every other day current wound care evaluation. Patient will be transported by EMS back to his home. I have extensively reviewed the treatment plan and discharge instructions with the patient. I have addressed all patient concerns at this time. The patient was made aware of what symptoms to monitor for that would warrant a return to the emergency department. Discussed the plan with the patient, they demonstrate verbal understanding and agreement with our assessment and plan at this time. HPI General Date/Time Provider Initiated Documentation: 08/02/19 23:46 . HPI Narrative: This is a 59-year-old male with a past medical history of renal failure on dialysis who still does urinate, chronic decubitus ulcer foot ulcer and right knee ulcer, paraplegia secondary to chronic spinal cord injury, regular catheterization, chronic anemia, hypertension, who presents today for evaluation of laceration to his left lower extremity. He states that 24 hours ago his dog scraped the leg with the dog's claws. He had some mild bleeding since then. He tried bandaging at home, however it is continued to ooze. This evening he noticed the continued bleeding, contacted EMS who brought him to the ER for further evaluation. EMS placed quick clot on it bandaged it, they did note that the bandage that was on was distal to the laceration site, and not providing any coverage. Patient denies any red flags of fever or chills. The d og did not bite him, and the dog's vaccines are up-to-date. Tetanus is up-to-date. Related Data Home Medications Medication Instructions Recorded Confirmed Ensure High Protein 237 ml PO PRN 12/16/15 07/24/19 cyanocobalamin (vitamin B-12) 1,000 mcg PO DAILY #90 tab 10/08/16 07/07/19 [Vitamin B-12] calcitriol 0.25 mcg PO DAILY #30 cap 12/29/16 07/24/19 calcium acetate 1,334 mg PO AC #180 cap 12/29/16 07/24/19 sodium bicarbonate 650 mg PO TID #60 tab 12/29/16 07/24/19 venlafaxine [Effexor XR] 150 mg PO DAILY 08/15/17 07/24/19 ferrous sulfate 325 mg PO DAILY tab 08/30/17 07/24/19 gabapentin 300 mg PO HS 02/21/18 07/24/19 amlodipine 5 mg tablet 5 mg PO DAILY #30 tab 04/09/19 07/24/19 tramadol 50 mg tablet 50 mg PO TID PRN #30 tab 05/06/19 07/24/19 clonazepam 1 mg tablet 1 mg PO BID #60 tab 05/12/19 07/24/19 amoxicillin-pot clavulanate 1 tab PO BID 10 Days #20 tab 08/02/19 [Augmentin] Previous Rx's Medication Instructions Recorded cyanocobalamin (vitamin B-12) 1,000 mcg PO DAILY #90 tab 10/08/16 [Vitamin B-12] calcitriol 0.25 mcg PO DAILY #30 cap 12/29/16 calcium acetate 1,334 mg PO AC #180 cap 12/29/16 sodium bicarbonate 650 mg PO TID #60 tab 12/29/16 ferrous sulfate 325 mg PO DAILY tab 08/30/17 amlodipine 5 mg tablet 5 mg PO DAILY #30 tab 04/09/19 tramadol 50 mg tablet 50 mg PO TID PRN #30 tab 05/06/19 clonazepam 1 mg tablet 1 mg PO BID #60 tab 05/12/19 amoxicillin-pot clavulanate 1 tab PO BID 10 Days #20 tab 08/02/19 [Augmentin] Allergies Allergy/AdvReac Type Severity Reaction Status Date / Time oxycodone Allergy Skin Rash Unverified 07/24/19 14:41 topiramate [From Topamax] AdvReac Severe put me Unverified 07/24/19 14:41 out, couldn't wake me up General AMY: 3 Review of Systems All systems reviewed & are unremarkable except as noted in HPI and below PFSH Surgical History Colostomy Hip debridement, with bone resection s/p right hip remova for bony infection (Inactive) Spinal Fusion Social History Smoking/Tobacco Use Status: Current-Occasional Tobacco Type: cigarettes Quit status: not considering quitting Second Hand Exposure: Yes Alcohol Intake: former Drug use: Never Substance use type: does not use Caregiver/Support person: Yes Household members: spouse and friend(s) Housing: house Do you need help understanding health information?: Often Pets and animals: Yes Pets and animals: cat(s) and dog(s) Sexually active: No Do you think of yourself as: straight/heterosexual What is your relationship status?: How often do you talk on the phone with friends or family?: never How often do you get together with friends or relatives?: never How often do you attend jain or hinduism services?: decline to answer Do you belong to any clubs or organized social groups?: no Panel score (0-1 are the most socially isolated patients): 1 Marcelle/Sabianism: Seventh Day Episcopalian Special marcelle needs: No Seatbelt use: always Helmet use: No Drive intox or ride w/intox mail truck driver: No Do you feel safe at home: Yes Do you feel safe in your relationship?: Yes Exam Narrative Exam Narrative: 1.Const: Well-nourished, Well-developed, appearing stated age 2.Eyes: PERRL, no conjunctival injection, and symmetrical lids. 3.ENT: Atraumatic external nose and ears. Moist MM. Neck: Symmetric, trachea midline, No thyromegaly. 4.CVS: +S1/S2, No murmurs or gallops. Peripheral pulses 2+ and equal in all extremities. Brisk capillary refill in all extremities. 5.RESP: Unlabored respiratory effort. Clear to auscultation bilaterally. No wheezes rales or rhonchi 6.GI: Soft, Nontender/Nondistended, No hepatosplenomegaly. No guarding or rebound. Ostomy is in place on left hand side, no blood, stoma is normal colored. Stool is yellow/brown. 7.MSK: Chronic paraplegia, no hip or pelvis pain, right and left lower extremity is atrophied, trace pitting edema, pulses intact bilaterally. 8.Skin: Chronic stage III decubitus ulcer on the buttock, no erythema, minimal drainage. Chronic decubitus ulcer on the left heel. No evidence of fluctuance. Stage III chronic pressure ulcer on the right knee, no erythema, fluctuance, or significant drainage. Well-healing postsurgical sites for the left lower extremity femur. Left distal hill demonstrates a 3 to 4 cm linear superficial laceration with no evidence of trauma to the deep tissues. No active bleeding at this time. No redness warmth fluctuance drainage or discharge. 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 Sensation grossly intact for the upper extremities. Notably diminished sensation chronically in the lower extremities, no movement of the lower extremities. Patient appears to be a chronic baseline per patient 10.Psych: (AAO) x3. Appropriate mood and affect
[2019-08-02] MEDS: Amoxicillin 875/Clav. 125 TAB (23:49)
[2019-08-02 23:50] VITALS: PULSE 96; RESP 181; TEMP 36.1; O2SAT 98
[2019-08-02] MEDS: Amoxicillin 875/Clav. 125 TAB PO (23:50)
--- NOTE | 2019-08-03 11:47 | PDOC.ERCMPRO ---
- If Service Date Differs Date of service: 08/03/19 Time of Service: 11:47 Care Management Progress Note CM consulted by ED MD regarding increased wound care at home. Timmy already has wound care through [facility] every other day, MD requesting daily. CM faxed request for increased wound care to Home Health and clinical coordinator, Beatris Stevens, at [facility].
== END 2019-08-03 00:35 | disposition home or self-care (01) ==
LOC: ER 08-03 00:33
PROVIDERS: Emergency Provider Student in an Organized Health Care Education/Training Program; PCP Family Medicine
DX: W54.0XXA Bitten by dog, initial encounter; N18.6 End stage renal disease; Z99.2 Dependence on renal dialysis; I12.0 Hypertensive chronic kidney disease with stage 5 chronic kidney disease or end stage renal disease; S81.812A Laceration without foreign body, left lower leg, initial encounter
CPT/HCPCS: 99283

== ENCOUNTER 2019-08-10 20:15 | Emergency (ER) | payer MEDICARE, MEDICAID, SELFPAY ==
[2019-08-10] VITALS (7 sets, daily range): BP systolic 158–165; BP diastolic 88–93; PULSE 93–96; RESP 13–22; TEMP 36.5–36.6; O2SAT 90–97
--- NOTE | 2019-08-10 20:30 | W.ED.GENAD ---
Discharge Plan Disposition Patient Disposition: HOME Condition: Stable Discharge Details Chief Complaint: Chest Pain Clinical Impression: Pulmonary edema Primary Care Provider: Keegan Cruz ED Provider: Jean Paul Root Home Meds and New Rx's Prescriptions: Continued amlodipine [Norvasc] 5 mg tablet 5 mg PO DAILY Qty: 30 RF: 0 clonazepam 1 mg tablet 1 - 1.5 mg PO BID Qty: 90 RF: 5 Ensure High Protein 237 ML liquid 237 ml PO PRN RF: 0 tramadol 50 mg tablet 50 mg PO TID PRN (Reason: pain) Qty: 30 RF: 5 cyanocobalamin (vitamin B-12) [Vitamin B-12] 500 MCG tablet 1,000 mcg PO DAILY Qty: 90 RF: 0 venlafaxine [Effexor XR] 150 MG capsule,extended release 24hr 150 mg PO DAILY RF: 0 ferrous sulfate 325 MG tablet 325 mg PO DAILY RF: 0 gabapentin 300 MG capsule 300 mg PO HS RF: 0 calcitriol 0.25 MCG capsule 0.25 mcg PO DAILY Qty: 30 RF: 0 calcium acetate 667 MG capsule 1,334 mg PO AC Qty: 180 RF: 0 sodium bicarbonate 650 MG tablet 650 mg PO TID Qty: 60 RF: 0 Discharge Instructions Additional Instructions: Your xray showed fluid in the lungs. I spoke with the supervisor intelligence analyst at [facility] and they want you to get dialysis tomorrow The health care facility administrator is going to call the dialysis center and arrange transport tomorrow for you if you feel more ill overnight or have severe worsening pain return to the emergency department Medical Decision Making 59 yo male with multiple medical problems including esrd on dialysis t//sun, PE on eliquis comes in with pleuritic chest pain for 2 days. Denies fevers, chills, abd pain, n/v. A dog did scratch his lower leg and he decided to stop his eliquis 4 days ago as it was oozing blood from the wound. The wound has no evidence of infection at this time. Suspect recurrent PE and will give him a dose of eliquis here and obtain labs and cxr and monitor. HAs no tearing back pain so doubt dissection pt remains stable, lab work shows no acute changes from baseline. HE has a room air saturation of 90-92% and has o2 at home. Xray does show pulmonary edema and pleural effusions. Will consult with nephrology at [facility] on timing of dialysis. nephrology at [facility] feels he should have dialysis tomorrow. Care management Jazmin was made aware and is going to arrange for timing and transport. He remains hd stable. He understands he needs to take his eliquis that he states he has at home as prescribed. Differential Diagnosis Differential Diagnosis: esrd, pna, pleurisy HPI General Mode of arrival: EMS. Date/Time Provider Initiated Documentation: 08/10/19 20:22. Limitations to Documentation: no limitations. Information obtained by: patient. History of Present Illness 59 year old M presents to the emergency department with the chief complaint of chest pain, described as moderate, Patient started experiencing this day(s) (2) and it has been constant. No relieving factors improve symptom(s), No exacerbating factors reported . Patient did receive the following treatments prior to arrival, none Related Data Home Medications Medication Instructions Recorded Confirmed Ensure High Protein 237 ml PO PRN 12/16/15 08/10/19 cyanocobalamin (vitamin B-12) 1,000 mcg PO DAILY #90 tab 10/08/16 08/10/19 [Vitamin B-12] calcitriol 0.25 mcg PO DAILY #30 cap 12/29/16 08/10/19 calcium acetate 1,334 mg PO AC #180 cap 12/29/16 08/10/19 sodium bicarbonate 650 mg PO TID #60 tab 12/29/16 08/10/19 venlafaxine [Effexor XR] 150 mg PO DAILY 08/15/17 08/10/19 ferrous sulfate 325 mg PO DAILY tab 08/30/17 08/10/19 gabapentin 300 mg PO HS 02/21/18 08/10/19 amlodipine 5 mg tablet 5 mg PO DAILY #30 tab 04/09/19 08/10/19 clonazepam 1 mg tablet 1 - 1.5 mg PO BID #90 tab 08/04/19 08/10/19 tramadol 50 mg tablet 50 mg PO TID PRN #30 tab 08/05/19 08/10/19 Previous Rx's Medication Instructions Recorded cyanocobalamin (vitamin B-12) 1,000 mcg PO DAILY #90 tab 10/08/16 [Vitamin B-12] calcitriol 0.25 mcg PO DAILY #30 cap 05/05/17 calcium acetate 1,334 mg PO AC #180 cap 12/29/16 sodium bicarbonate 650 mg PO TID #60 tab 12/29/16 ferrous sulfate 325 mg PO DAILY tab 08/30/17 amlodipine 5 mg tablet 5 mg PO DAILY #30 tab 04/09/19 clonazepam 1 mg tablet 1 - 1.5 mg PO BID #90 tab 08/04/19 tramadol 50 mg tablet 50 mg PO TID PRN #30 tab 08/05/19 Allergies Allergy/AdvReac Type Severity Reaction Status Date / Time oxycodone Allergy Skin Rash Unverified 08/10/19 20:21 topiramate [From Topamax] AdvReac Severe put me Unverified 08/10/19 20:21 out, couldn't wake me up General Stated Complaint: Chest Pain AMY: 2 Review of Systems All systems reviewed & are unremarkable except as noted in HPI and below Constitutional Constitutional: Denies chills and Denies fever(s) Cardiovascular Cardiovascular: Denies dyspnea Respiratory Respiratory: Denies cough and Denies dyspnea Gastrointestinal Gastrointestinal: Denies abdominal pain, Denies nausea and Denies vomiting Musculoskeletal Musculoskeletal: Denies joint swelling Psychiatric Psychiatric: Denies depression [facility] Surgical History Colostomy Hip debridement, with bone resection s/p right hip remova for bony infection (Inactive) Spinal Fusion Social History Smoking/Tobacco Use Status: Current-Occasional Tobacco Type: cigarettes Quit status: not considering quitting Second Hand Exposure: Yes Alcohol Intake: former Drug use: Never Substance use type: does not use Caregiver/Support person: Yes Household members: spouse and friend(s) Housing: house Do you need help understanding health information?: Often Pets and animals: Yes Pets and animals: cat(s) and dog(s) Sexually active: No Do you think of yourself as: straight/heterosexual What is your relationship status?: How often do you talk on the phone with friends or family?: never How often do you get together with friends or relatives?: never How often do you attend jewish or mu-ism services?: decline to answer Do you belong to any clubs or organized social groups?: no Panel score (0-1 are the most socially isolated patients): 1 Marcelle/Restorationist: Seventh Day Sabianist Special marcelle needs: No Seatbelt use: always Helmet use: No Drive intox or ride w/intox milk 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 driver: No Do you feel safe at home: Yes Do you feel safe in your relationship?: Yes Exam Const General: no acute distress Orientation: alert HENMT Head: normal to inspection Ears: external ears normal General nose exam: external nose normal Mouth: moist mucous membranes Eyes General: appearance normal, both eyes and all related structures Neck Neck: normal visual inspection Resp Effort & Inspection: normal respiratory effort and able to speak in complete sentences Cardio Rate: regular rate Skin General skin exam: no rashes or lesions noted Neuro General: alert and oriented x3 Extrem General: normal to inspection Psych Mental Status: mental status grossly normal Course Vital Signs Vital signs: Vital Signs Temperature 36.6 C 08/10/19 20:01 Pulse 94 H 08/10/19 20:01 Respiratory Rate 13 08/10/19 20:01 Blood Pressure 165/93 H 08/10/19 20:01 Pulse Oximetry 90 L 08/10/19 20:01 Temperature 36.6 C 08/10/19 20:01 Temperature Source Skin 08/10/19 20:01 Pulse 94 H 08/10/19 20:01 Respiratory Rate 22 08/10/19 20:16 Respiratory Effort 08/10/19 20:16 Respiratory Depth Normal 08/10/19 20:16 Respiratory Pattern Irregular 08/10/19 20:16 Blood Pressure 165/93 H 08/10/19 20:01 Pulse Oximetry 95 08/10/19 20:10 Oxygen Delivery Method Nasal Cannula 08/10/19 20:10 Oxygen Flow Rate 4 08/10/19 20:10 Pain Level 8 08/10/19 20:16 Comment 08/10/19 20:01
[2019-08-10] MEDS: Apixaban 5 MG TAB 10 MG PO ×2 (21:07)
[2019-08-10 21:11] LABS: HCO3 (Venous) 34 mmol/L (22-28); O2 Sat (Venous) 77 % (70-80); TCO2 (Venous) 32 mmol/L (22-29); pCO2 (Venous) 44 mm/Hg (34-47); pO2 (Venous) 42 mm/Hg (28-44)
[2019-08-10 21:13] LABS: BE (Venous) 10.8 mmol/L (-3-3)
[2019-08-10 21:14] LABS: Abs Immature Grans 0.02 k/cumm (0.0-0.09); Absolute Basophil Count 0.04 k/cumm (0.0-0.2); Absolute Eosinophil Count 0.44 k/cumm (0.0-0.7); Absolute Lymphocyte Count 1.94 k/cumm (1.2-3.4); Absolute Monocyte Count 0.85 k/cumm (0.11-0.7); Absolute Neutrophil Count 5.47 k/cumm (1.2-6.7); Basophils % 0.5; HCT 28.6 % (40.0-50.0); Immature Grans % 0.2; Lymphocytes % 22.1; Mean Corp. HGB Concentration 31.5 g/dL (32.0-36.0); Mean Corpuscular Hemoglobin 28.7 pg (27.0-33.0); Mean Corpuscular Volume 91.1 fL (80-95); Mean Platelet Volume 9.5 fL (8.0-11.0); Monocytes % 9.7; Neutrophils % 62.5; Platelet Count 347 x1000/uL (130-400); RBC 3.14 m/cumm (4.50-6.00); RBC Distribution Width 16.7 % (11.8-14.1); White Blood Cell Count 8.76 k/cumm (4.4-10.8)
--- NOTE | 2019-08-10 21:19 | DI.RAD_ITS ---
EXAM: XR CHEST 2V PA LATERAL INDICATION: shortness of breath. COMPARISON: XR CHEST 2V PA LATERAL from 07/24/2019 TECHNIQUE: 2D digital imaging was performed. FINDINGS: Catheter is again noted over the right chest with the tip in the right atrium. There has been interv al increase in bilateral pleural effusions right slightly greater than left, now moderate in size. T here is some pleural thickening over the left upper lobe as well as some underlying scarring. There may be mildly increased interstitial changes at the lung bases which could indicate mild pulmonary ed fallon. Hardware is again noted in the spine. IMPRESSION: Interval increase in size of bilateral pleural effusions. Mild pulmonary edema.
[2019-08-10 21:25] LABS: Anisocytosis 1+; INR 1.1 (0.9-1.1); PTT Activated 20.5 sec (21.0-31.4); Prothrombin Time 10.7 sec (9.3-11.0)
[2019-08-10 21:31] LABS: ALT 10 U/L (16-63); AST 29 U/L (15-37); Albumin 2.5 g/dL (3.4-5.0); Alkaline Phosphatase 171 U/L (46-116); Anion Gap 8.1 mmol/L (3-11); BUN 11 mg/dL (7-18); Bilirubin, Total 0.4 mg/dL (0.2-1.0); CO2 31.9 mmol/L (21.0-32.0); Calcium 9.1 mg/dL (8.5-10.1); Chloride 97 mmol/L (98-107); Estimated GFR 15.25 (mL/min/1.73m2); Glucose 87 mg/dL (74-106); Magnesium 2.1 mg/dL (1.8-2.4); Potassium 4.4 mmol/L (3.5-5.1); Sodium 137 mmol/L (136-145); Total Protein 7.7 g/dL (6.4-8.2)
[2019-08-10 21:32] LABS: CREATININE 4.07 mg/dL (0.70-1.30)
[2019-08-10 21:33] LABS: Troponin I < 0.05 ng/Ml (<0.06)
--- NOTE | 2019-08-10 21:36 | DI.VRAD_ITS ---
PROCEDURE INFORMATION: Exam: XR Chest, 2 Views Exam date and time: 08/10/2019 9:25 PM Age: 59 years old Clinical history: Shortness of breath; Prior surgery; Surgery date: 6+ months; Surgery type: Spinal fusion, port; Patient HX: SOB TECHNIQUE: Imaging protocol: XR of the chest Views: 2 views. COMPARISON: CR XR CHEST 2V PA LATERAL 07/24/2019 3:42 PM FINDINGS: Tubes, catheters and devices: Right tunnel catheter terminates the right atrium. Lungs: Prominent, indistinct pulmonary vasculature. Nodular opacity at the left lung base. Pleural space: Moderate right and small left pleural effusions. Heart/Mediastinum: Borderline enlarged cardiomediastinal silhouette. Bones/joints: Unremarkable. Other findings: Partially visualized thoracolumbar hardware appears grossly intact. IMPRESSION: 1. Pulmonary edema. 2. Moderate right and small left pleural effusions. 3. Left basilar nodular opacity is new from prior and favored secondary to superimposed bone or nipple shadow. Recommend attention on follow-up. Dictated and Authenticated by: Craig Daly MD. Ordering:MARIA NIES Reaves MD
== END 2019-08-10 22:35 | disposition home or self-care (01) ==
PROVIDERS: Emergency Provider Emergency Medicine; PCP Family Medicine
DX: J81.0 Acute pulmonary edema (principal); R94.4 Abnormal results of kidney function studies; I12.0 Hypertensive chronic kidney disease with stage 5 chronic kidney disease or end stage renal disease; N18.6 End stage renal disease; Z99.2 Dependence on renal dialysis; Z79.01 Long term (current) use of anticoagulants; Z86.711 Personal history of pulmonary embolism
CPT/HCPCS: 36415; 80053; 82805; 93005; 99285; 71046; 83735; 84484; 85025; 85610; 85730; 93010

== ENCOUNTER 2019-08-12 16:41 | Emergency (ER) | payer MEDICARE, MEDICAID, SELFPAY ==
[2019-08-12] VITALS (32 sets, daily range): BP systolic 134–160; BP diastolic 70–100; PULSE 94–102; RESP 19–26; TEMP 37.2; O2SAT 86–96
--- NOTE | 2019-08-12 16:51 | W.ED.GENAD ---
Discharge Plan Disposition Patient Disposition: HOME Condition: Stable Discharge Details Chief Complaint: RespSymp Clinical Impression: Weakness, Pleural effusion, Atelectasis Primary Care Provider: Keegan Cruz ED Provider: Sharon Quintana Home Meds and New Rx's Prescriptions: Continued amlodipine [Norvasc] 5 mg tablet 5 mg PO DAILY Qty: 30 RF: 0 clonazepam 1 mg tablet 1 - 1.5 mg PO BID Qty: 90 RF: 5 Ensure High Protein 237 ML liquid 237 ml PO PRN RF: 0 tramadol 50 mg tablet 50 mg PO TID PRN (Reason: pain) Qty: 30 RF: 5 cyanocobalamin (vitamin B-12) [Vitamin B-12] 500 MCG tablet 1,000 mcg PO DAILY Qty: 90 RF: 0 venlafaxine [Effexor XR] 150 MG capsule,extended release 24hr 150 mg PO DAILY RF: 0 ferrous sulfate 325 MG tablet 325 mg PO DAILY RF: 0 gabapentin 300 MG capsule 300 mg PO HS RF: 0 Eliquis 5 mg Tablet 5 mg PO DAILY RF: 0 calcitriol 0.25 MCG capsule 0.25 mcg PO DAILY Qty: 30 RF: 0 calcium acetate 667 MG capsule 1,334 mg PO AC Qty: 180 RF: 0 sodium bicarbonate 650 MG tablet 650 mg PO TID Qty: 60 RF: 0 Discharge Instructions Instructions: Weakness (ED) Additional Instructions: Please encourage hydration. You need to take your medications every day. You will need close follow-up with primary care, please call tomorrow to schedule appointment this week. Much of your issues is from you being sedentary for such a large amount of time. You to continue with physical therapy and perform the exercises they give you his homework. Please reconsider a stay in a rehabilitation center. Our child care group leader will be reaching out to you tomorrow morning regarding rehabilitation as well as being dialyzed tomorrow once again. If you develop new or worsening symptoms please seek care urgently once again. Referrals: Keegan Cruz [Primary Care Provider] - Medical Decision Making <VERN Sawyer - Last Filed: 08/13/19 00:38> Patient 59-year-old male, well-known to myself with complex past medical history, presenting today with chief complaint of continued shortness of breath. He has had the same sensation since being admitted [facility] with a pulmonary embolism in May. Patient has had readmissions since that time she was diagnosed with pneumonia. He denies any fevers or chills. No green-louis sputum production. No cough. Patient is a poor historian at baseline and often changes his story. States that he was at dialysis today, did receive his full dialysis treatment, and subsequently was advised to come to the emergency department for his continued shortness of breath. He reports that shortness of breath is primarily with exertion. He is not having any when at rest. Denies any chest pain. He reports that since being discharged on 07/18/2019, he has been largely sedentary. I had seen him historically and there was concern for him to can have continued weakness from his 2 admissions in recent months. However, he has not been completing his physical therapy daily exercises. States that he has been choosing to lay in bed. Has not been attempting to get up. Patient does have chronic wounds on his buttocks and hip, he reports that these are stable and have been checked recently by home health nursing. Patient is on chronic oxygen, particularly when laying in a supine position with no increase demand recently. Patient does report that he has been evaluated recently and there is a decision made to increase his dialysis in order to dialyze off excess fluids which was thought to be causing his shortness of breath. Patient has history of pulmonary embolism. He reports that he has been taking his Eliquis as prescribed. Patient was seen here 2 days ago with similar symptoms. At that time, he was endorsing pleuritic chest discomfort which he is denying at this time. Patient also reports that he has noted increased abdominal pain and decreased stool output. He is concerned for possible obstruction. He reports that he did have an SBO several years ago. Denies any nausea or vomiting. Patient reports diminished appetite but states that this is progressively worsened over time. No acute change in this. On exam, patient appears chronically ill. He is a fairly flat affect and is a poor historian. Lungs are clear. Abdomen is benign. Plan for CT of the abdomen and chest x-ray. FINDINGS: Tubes, catheters and devices: Right chest wall dual lumen catheter in stable configuration, distal tip in the right atrium. Lungs: Mild vascular congestion slightly improved compared to the previous study. Dependent pulmonary opacities, atelectasis versus pneumonia. Pleural space: Moderate right and small left pleural effusions, minimally improved, however appearing persistently loculated on the right. Heart/Mediastinum: No cardiomegaly. Bones/joints: Thoracic lumbar fixation hardware appears stable. No displaced fracture. Ankylosis is suspected in the thoracic spine. IMPRESSION: 1. Mild vascular congestion slightly improved compared to the previous study. 2. Moderate right and small left pleural effusions, minimally improved, however appearing persistently loculated on the right. 3. Dependent pulmonary opacities, atelectasis versus pneumonia. Discussed findings with the patient. He has no leukocytosis on his laboratory evaluation, has been afebrile with no change in cough or sputum production. Fine pneumonia very unlikely. However, given his sedentary nature since the time of discharge, atelectasis more likely. INDINGS: Tubes, catheters and devices: Suprapubic catheter decompressing the urinary bladder. Dialysis catheter partially seen terminating in the right atrium. Lungs: New since prior CT, significant airspace opacities in the lung bases are new. There probably compressive in the left lower lobe; pneumonia is challenging to exclude in the right lower lobe. Pleural space: At least moderate bilateral pleural effusions right greater than left new since previous CT. Liver: No hepatic masses on noncontrast imaging. Gallbladder and bile ducts: Cholelithiasis. No pericholecystic edema. Pancreas: No ductal dilation. No masses. Spleen: No splenomegaly or focal lesions. Adrenals: No mass. Kidneys and ureters: Similar nonobstructive left subcentimeter nephrolithiasis. No right nephrolithiasis. No right hydronephrosis. Stomach and bowel: A transverse colostomy moderate amount of parastomal fat herniation, similar to the previous study, no obstruction or colitis. No acute pathology in the small bowel on noncontrast imaging. Chronic disused appearance of the distal colon which is decompressed. Appendix: No evidence of appendicitis. Intraperitoneal space: No free air. No significant fluid collection. Vasculature: Mild aortoiliac atherosclerosis. No aortic aneurysm. Lymph nodes: Similar mildly enlarged inguinal lymph nodes. Bladder: Unremarkable as visualized. Reproductive: Unremarkable as visualized. Bones/joints: Hardware partially seen in the left femoral diaphysis. Severe chronic appearing deformity throughout the pelvis, in the presence of large decubitus ulcers, involving multiple areas of chronic appearing osteomyelitis, chronic dislocation of the right hip, a large amount of chronic appearing partially calcified soft tissue surrounding the right hip, dominant component measuring at least 11 x 10 cm, appearing similar to the previous study. There is again very large decubitus ulcers right worse than left, right-sided decubitus ulcer likely in communication to the perineum and ischiorectal region appearing similar to the previous study. Thoracic lumbar fixation hardware appears stable. Anatomic alignment in the spine. Ankylosis of the spine. Marked truncation of the sacrum with complete lysis of the coccyx, overall degree of lysis slightly increased since the previous study. No acute fracture. Soft tissues: The amount of pathologic appearing soft tissue overlying the sacrum has increased probably progressive decubitus ulcer. Gynecomastia is partially seen, probably present on the previous study. IMPRESSION: 1. No acute findings. 2. Severe chronic appearing deformity throughout the pelvis as described involving large decubitus ulcers with chronic osteolysis and presumably chronic osteomyelitis. 3. A transverse colostomy, moderate amount of parastomal fat herniation, similar to the previous study, no obstruction or colitis. 4. At least moderate bilateral pleural effusions right greater than left new since previous CT however appear similar to a more recent chest x-ray. 5. New since prior CT, significant airspace opacities in the lung bases. Probably compressive atelectasis in the left lower lobe; pneumonia is challenging to exclude in the right lower lobe. 6. Additional findings as described. Patient and I discussed these findings as well as incidental findings as noted above. Again, I feel that atelectasis more likely than pneumonia. Discussed the case further with Dr. Freedman. In particular, discussed possibility of patient recurrent PE. Patient is anticoagulated on Eliquis and reports been taking his medications. He is noted to be tachycardic with a heart rate of 102. Patient is often in the high 90s. Oxygen 93%. This is chronic for the patient largely unchanged. However, does make ruling out a pulmonary embolism more difficult. Discussed risk and benefit of CTA of the patient's chest for pulmonary embolism. In particular, given that patient is on dialysis, concerned regarding worsening kidney function. However, patient potentially could be dialyzed tomorrow. Patient I discussed risk/benefits of this at length. He voiced understanding and wished to have reimaging. Contacted care management regarding the patient. In particular, we discussed that he would likely need to have dialysis tomorrow as he underwent CTA while here tonight. His creatinine is reassuring for him here, noted to be 1.38. Potassium was low at 3.0. However, I am hesitant to replenish that at this point given his history and that he is on dialysis. I suspect this will likely go up quickly. In particular, care management and I discussed the need for repeat dialysis well as possible rehabilitation. She advised that she will be in contact with them tomorrow. CT reviewed by radiologist Patient Name: ARAMIS ZAMARRIPA #: [id number]: ER Ordering Provider: : REG ER Primary Care Provider: Pily Cruz of Exam: 08/12/19Sex: M : 2Age: 59 Exam(s) Addendum created by Pilar Centeno MD on 08/12/2019 10:03:49 PM EST Allowing for changes in technique the very small embolus in the right lower lobe is probably also similar to the 07/08/2019 study. Compared to the more recent prior study the right pleural effusion has significantly worsened, bowel left pleural effusion is similar. Airspace disease in the right lower lobe has significantly worsened. Initial report created on 08/12/2019 8:07:50 PM EST PROCEDURE INFORMATION: Exam: CT Angiography Chest With Contrast Exam date and time: 08/12/2019 19:13 Age: 59 years old Clinical indication: Other: Concern for recurrent pe TECHNIQUE: Imaging protocol: Computed tomographic angiography of the chest with intravenous contrast. 3D rendering: MIP and/or 3D reconstructed images were created by the technologist. Radiation optimization: All CT scans at this facility use at least one of these dose optimization techniques: automated exposure control; mA and/or kV adjustment per patient size (includes targeted exams where dose is matched to clinical indication); or iterative reconstruction. Contrast material: OMNIPAQUE 350; Contrast volume: 70 ml; Contrast route: IV; COMPARISON: CT CHEST PE CTA 06/05/2019 11:48 FINDINGS: Tubes, catheters and devices: Right chest wall dual lumen catheter in the expected position. Pulmonary arteries: Similar very small pulmonary embolus at segmental to subsegmental branch point in a right lower lobe pulmonary artery. No new emboli are seen. Aorta: No aortic aneurysm. No aortic dissection. Lungs: Basilar opacities right greater than left, probably compressive atelectasis on the left, consider atelectasis versus pneumonia on the right. Groundglass opacities in the lungs likely representing edema. Small nodular densities in the right upper lobe similar to the previous study, please consider followup as per institutional protocol. Pleural space: Significant increase in large bilateral pleural effusions with mild loculation on the right. No pneumothorax. Heart: Reflux of contrast into the azygos system probably relating to elevated right heart pressures and or volume overload similar to the previous study. Dilated left ventricle generalized mild cardiomegaly similar to the previous study. Lymph nodes: No enlarged lymph nodes. Bones/joints: Chronic appearing ankylosis in portions of the spine. Thoracic hardware again seen in stable configuration. A nonacute deformity of the right scapula is stable. Soft tissues: Gynecomastia is again seen. Other findings: Regarding the upper abdomen please see same day CT abdomen pelvis. IMPRESSION: 1. Similar very small pulmonary embolus distally in the right lower lobe. No new emboli are seen. 2. Significant increase in large bilateral pleural effusions with mild loculation on the right. 3. Basilar opacities right greater than left, probably compressive atelectasis on the left, consider atelectasis versus pneumonia on the right. A component of infarct is possible on the right given the presence of pulmonary embolus. 4. Groundglass opacities in the lungs likely representing edema. 5. Additional findings as described. Reviewed findings. Concerns me is that the patient was reported to have had resolution of his pulmonary emboli on his discharge note. Patient had a CT for PE protocol on 07/08/2019 at [facility]. Plan is in the imaging to their facility for comparison. Will consult with pulmonology regarding possible recurrent PE versus persistent pathology. Consulted with Dr. Jones with [facility] pulmonology. Discussed case and he advised that if the patient has a true recurrence of his PE despite being on Eliquiis, he would transition the patient to Lovenox. Plan to discuss this further with radiology, have requested consult with radiology for further review. [facility] does not have beds available for this patient at this time. Consulted with Maegan Hilton with radiology triage, will discuss case with attending. [facility] is able to send imaging to us so that [facility] can compare and determine if PE is new or unchanged. Discussed the need for further evaluation with the patient. Initially, he reported to me that he has been taking his Eliquis. However, he now that he had not been taking the Eliquis. I had noted that in his recent ED visit to his ago but patient had reported to me that he was taking the medication more than he initially reported. However, he is now reporting that he has not taken his medication since he was scratched by his dog, took his first dose yesterday. This would have taken him off of his Eliquis since 08/02/2019. Patient reports he has not taken his medication today. He is reporting anxiety is requesting his typical dosing of clonazepam. Addendum was requested by virtual radiology. They are able to compare the CT from 07/08/2019 due to the images are obtained today. Allowing for changes in technique the very small embolus in the right lower lobe is probably also similar to the 07/08/2019 study. Compared to the more recent prior study the right pleural effusion has significantly worsened, bowel left pleural effusion is similar. Airspace disease in the right lower lobe has significantly worsened. Discussed this with the patient. Again, we discussed that the increase atelectasis, weakness and dyspnea is all likely associated with his sedentary lifestyle since being discharged the patient deteriorating with time. I advised that he needs to follow recommendations and work with physical therapy. He advises that physical therapy is coming tomorrow to work with him once again. Again, the patient I discussed the need for rehabilitation stay. At this point, he would like to think about this further we will discuss this tomorrow when he contacted by case management. I also again encouraged that he undergo repeat dialysis tomorrow since he received contrast dye here today. Patient was given return precautions. He will be transported home via EMS. Patient does appear improved and seems reassured after the work-up completed here today. All his questions and concerns were addressed and he is in agreement this plan. <Fly Freedman DO - Last Filed: 08/12/19 19:24> EKG 18: 36 V6, EKG interpretation of atrial flutter from machine however this does not appear to be the case. I would diagnosis and rhythm, with an RSR in V1, inverted T wave is present in V3. Less than 1 mm of depression is present there. Review of prior EKG from 08/14 demonstrates no evidence of acute change and also demonstrates near identical findings. No evidence of STEMI HPI <VERN Sawyer - Last Filed: 08/13/19 00:38> General Mode of arrival: EMS. Date/Time Provider Initiated Documentation: 08/12/19 16:51. Limitations to Documentation: no limitations (patient is appropriate but a poor historian at baseline). HPI Narrative: Patient is a 59-year-old male, well-known to myself in the department, with chief complaint of persist since shortness of breath. He reports that he has had this shortness of breath for a long time. States that he was admitted for this but has not had any improvement since the time of discharge. He reports that they have adjusted his dialysis regimen in an attempt to take off excess fluid that was thought to be driving some of shortness of breath. Denies any fevers or chills. No recent travel. No cough. Patient is on Eliquis and reports is been taking his medication as prescribed. Does have a history of pulmonary embolism. Denies any chest plan or pleuritic pain. Patient is also endorsing abdominal pain. Reports that this began a few days ago. Reports diminished output from his colostomy. Is concerned for possible blockage. Patient is a dialysis patient. Was fully dialyzed prior to arrival. Receives dialysis on Sunday, , Sunday. Related Data Home Medications Medication Instructions Recorded Confirmed Ensure High Protein 237 ml PO PRN 12/16/15 08/12/19 cyanocobalamin (vitamin B-12) 1,000 mcg PO DAILY #90 tab 10/08/16 08/12/19 [Vitamin B-12] calcitriol 0.25 mcg PO DAILY #30 cap 12/29/16 08/12/19 calcium acetate 1,334 mg PO AC #180 cap 12/29/16 08/12/19 sodium bicarbonate 650 mg PO TID #60 tab 12/29/16 08/12/19 venlafaxine [Effexor XR] 150 mg PO DAILY 08/15/17 08/12/19 ferrous sulfate 325 mg PO DAILY tab 08/30/17 08/12/19 gabapentin 300 mg PO HS 02/21/18 08/12/19 amlodipine 5 mg tablet 5 mg PO DAILY #30 tab 04/09/19 08/12/19 clonazepam 1 mg tablet 1 - 1.5 mg PO BID #90 tab 08/04/19 08/12/19 tramadol 50 mg tablet 50 mg PO TID PRN #30 tab 12/10/19 12/17/19 Eliquis 5 mg PO DAILY 08/12/19 08/12/19 Previous Rx's Medication Instructions Recorded cyanocobalamin (vitamin B-12) 1,000 mcg PO DAILY #90 tab 10/08/16 [Vitamin B-12] calcitriol 0.25 mcg PO DAILY #30 cap 12/29/16 calcium acetate 1,334 mg PO AC #180 cap 12/29/16 sodium bicarbonate 650 mg PO TID #60 tab 12/29/16 ferrous sulfate 325 mg PO DAILY tab 08/30/17 amlodipine 5 mg tablet 5 mg PO DAILY #30 tab 04/09/19 clonazepam 1 mg tablet 1 - 1.5 mg PO BID #90 tab 08/04/19 tramadol 50 mg tablet 50 mg PO TID PRN #30 tab 08/05/19 Allergies Allergy/AdvReac Type Severity Reaction Status Date / Time oxycodone Allergy Skin Rash Unverified 08/12/19 16:45 topiramate [From Topamax] AdvReac Severe put me Unverified 08/12/19 16:45 out, couldn't wake me up General Stated Complaint: RespSymp AMY: 3 Review of Systems <VERN Sawyer - Last Filed: 08/13/19 00:38> Constitutional Constitutional: Reports as per HPI, Denies chills, Denies fatigue, Denies fever(s) and Denies headache(s) ENT Ears, Nose, Mouth, and Throat: Denies headache(s) Cardiovascular Cardiovascular: Reports as per HPI, Denies chest pain, Reports dyspnea and Reports dyspnea on exertion Respiratory Respiratory: Reports as per HPI, Denies chest congestion, Denies cough, Denies hemoptysis, Denies excessive phlegm production, Denies pain on inspiration, Denies pain with cough, Reports dyspnea, Reports dyspnea on exertion, Denies stridor and Denies wheezing Gastrointestinal Gastrointestinal: Reports as per HPI, Reports abdominal pain, Reports change in stool character (reports diminished stool output from colostomy), Denies nausea and Denies vomiting Genitourinary Genitourinary: Denies system reviewed and no additional complaints, except as docu (patient denies any change in urinary habits) Musculoskeletal Musculoskeletal: Reports as per HPI and Denies back pain Integumentary/Breasts Skin/Breast: Reports wounds (patient has 4 chronic pressure wounds, reported to be unchanged) Neurologic Neurologic: Reports as per HPI and Denies headache(s) Endocrine Endocrine: Denies fatigue Allergic/Immunologic Allergic/Immunologic: Denies wheezing PFSH <VERN Sawyer - Last Filed: 08/13/19 00:38> Surgical History Colostomy Hip debridement, with bone resection s/p right hip remova for bony infection (Inactive) Spinal Fusion Social History Smoking/Tobacco Use Status: Current-Occasional Tobacco Type: cigarettes Quit status: not considering quitting Second Hand Exposure: Yes Alcohol Intake: former Drug use: Never Substance use type: does not use Caregiver/Support person: Yes Household members: spouse and friend(s) Housing: house Do you need help understanding health information?: Often Pets and animals: Yes Pets and animals: cat(s) and dog(s) Sexually active: No Do you think of yourself as: straight/heterosexual What is your relationship status?: How often do you talk on the phone with friends or family?: never How often do you get together with friends or relatives?: never How often do you attend latter day or shinto services?: decline to answer Do you belong to any clubs or organized social groups?: no Panel score (0-1 are the most socially isolated patients): 1 Marcelle/Yarsani: Seventh Day Protestant Special marcelle needs: No Seatbelt use: always Helmet use: No Drive intox or ride w/intox company driver: No Do you feel safe at home: Yes Do you feel safe in your relationship?: Yes Exam <VERN Sawyer - Last Filed: 08/13/19 00:38> Const General: cooperative, comfortable, no acute distress and ill appearing chronically Nutritional Appearance: malnourished Orientation: alert, awake and oriented x3 HENMT Head: normal to inspection Mouth: mucous membranes dry (appears dry) Chest Chest: normal inspection of the chest, no crepitus, no localized rib tenderness, no masses and no tenderness Resp Effort & Inspection: normal respiratory effort, able to speak in complete sentences and no respiratory distress Auscultation: clear to auscultation bilaterally, no rales, no rhonchi and no wheezes Cardio Rate: regular rate Rhythm: regular rhythm Heart Sounds: S1 normal and S2 normal GI Inspection: normal to inspection (colostomy present, pink and moist, normal appearance), no abdominal wall ecchymosis, no edema, non-distended, no visible pulsation and No visible peristalsis Palpation: soft, no hepatosplenomegaly, not firm, no guarding, no hepatosplenomegaly, no pulsatile masses, not rigid, tender (diffuse tenderness, no focal area of pain) and No ascites Percussion: normal to percussion Auscultation: normal bowel sounds Back/Spine/Pelvis Back: no CVA tenderness Neuro General: alert and awake Cognition: normal cognition Speech: speech normal Gait: gait abnormal (paraplegic) Psych Appearance: grossly normal and disheveled Mental Status: mental status grossly normal Speech and Movement: speech and movement normal Affect: sad (baseline for patient compared to previous visits) Course <VERN Sawyer - Last Filed: 08/13/19 00:38> Vital Signs Vital signs: Vital Signs Temperature 37.2 C 08/12/19 16:42 Pulse 102 H 08/12/19 16:42 Respiratory Rate 20 08/12/19 16:42 Blood Pressure 151/86 H 08/12/19 16:42 Pulse Oximetry 93 L 08/12/19 16:42 Temperature 37.2 C 08/12/19 16:42 Temperature Source Temporal Artery Scan 08/12/19 16:42 Pulse 102 H 08/12/19 16:42 Respiratory Rate 20 08/12/19 16:42 Blood Pressure 151/86 H 08/12/19 16:42 Blood Pressure Position Supine 08/12/19 16:42 Pulse Oximetry 93 L 08/12/19 16:42 Oxygen Delivery Method Room Air 08/12/19 16:42 Oxygen Flow Rate 0 08/12/19 16:42 Pain Level 8 08/12/19 16:42
[2019-08-12 17:53] LABS: Abs Immature Grans 0.01 k/cumm (0.0-0.09); Absolute Basophil Count 0.04 k/cumm (0.0-0.2); Absolute Eosinophil Count 0.55 k/cumm (0.0-0.7); Absolute Lymphocyte Count 2.29 k/cumm (1.2-3.4); Absolute Monocyte Count 0.89 k/cumm (0.11-0.7); Absolute Neutrophil Count 5.06 k/cumm (1.2-6.7); Basophils % 0.5; Eosinophils % 6.2; HCT 32.2 % (40.0-50.0); Immature Grans % 0.1; Lymphocytes % 25.9; Mean Corp. HGB Concentration 31.1 g/dL (32.0-36.0); Mean Corpuscular Hemoglobin 28.1 pg (27.0-33.0); Mean Corpuscular Volume 90.4 fL (80-95); Mean Platelet Volume 9.3 fL (8.0-11.0); Monocytes % 10.1; Neutrophils % 57.2; Platelet Count 407 x1000/uL (130-400); RBC 3.56 m/cumm (4.50-6.00); RBC Distribution Width 16.8 % (11.8-14.1); White Blood Cell Count 8.84 k/cumm (4.4-10.8)
--- NOTE | 2019-08-12 18:07 | DI.RAD_ITS ---
EXAM: XR CHEST 2V PA LATERAL INDICATION: SOB, CHEST DISCOMFORT COMPARISON: XR CHEST 2V PA LATERAL from 08/10/2019 TECHNIQUE: 2D digital imaging was performed. FINDINGS: The bilateral pleural effusions may have slightly decreased when compared with the previous exam. Th e right effusion again appears loculated. No new abnormalities are seen. Double-lumen catheter and spinal hardware are again noted. IMPRESSION: Mild improvement in bilateral pleural effusions and pulmonary edema.
[2019-08-12 18:10] LABS: ALT 13 U/L (16-63); AST 28 U/L (15-37); Albumin 2.7 g/dL (3.4-5.0); Alkaline Phosphatase 169 U/L (46-116); Anion Gap 5.2 mmol/L (3-11); BUN 2 mg/dL (7-18); Bilirubin, Total 0.3 mg/dL (0.2-1.0); CO2 33.8 mmol/L (21.0-32.0); CREATININE 1.38 mg/dL (0.70-1.30); Calcium 8.8 mg/dL (8.5-10.1); Chloride 98 mmol/L (98-107); Estimated GFR 53.11 (mL/min/1.73m2); Glucose 81 mg/dL (74-106); Sodium 137 mmol/L (136-145); Total Protein 8.1 g/dL (6.4-8.2)
--- NOTE | 2019-08-12 18:17 | DI.CT_ITS ---
EXAM: CT ABDOMEN PELVIS WO CLINICAL HISTORY: diffuse discomfort TECHNIQUE: Noncontrast COMPARISON: CT CHEST PE CTA from 02/04/2019 CT CHEST PE CTA from 06/05/2019 XR HIP LT COMPLETE AP PELVIS from 06/05/2019 CTA CHEST PULMONARY EMBOLISM W CONTRAST from 06/06/2019 CTA CHEST PULMONARY EMBOLISM W CONTRAST from 07/08/2019 FINDINGS: Bilateral pleural effusions and compressive atelectasis are noted. Please see separate CT report. The liver, spleen and adrenals are unremarkable. The pancreas is atrophic. A small stone is noted i n the gallbladder. A tiny nonobstructing stone is noted in the left kidney. There is no hydronephro sis. Bladder is empty. There is a suprapubic catheter in place, unchanged. An additional Ovalles cat heter is noted with the balloon inflated in the bulbar urethra. There is no bowel dilatation or infl ammatory change. There has been no change in the colostomy. There is a normal quantity of stool. No free air or free fluid is seen. Hardware is again noted in the thoracolumbar spine. Again noted is severe deformity of the sacrum. There is mildly is mild increase in the amount of overlying soft ti ssue decubitus ulcer. There is chronic dislocation of the right hip with a large amount of surroundi ng soft tissue. It is grossly similar to the previous exam. IMPRESSION: Some interval worsening in decubitus ulcers over the sacrum. Chronic appearing soft tissue findings around the dislocated right hip. No evidence of bowel obstruction or inflammation. Ovalles catheter b alloon is inflated within the bulbar urethra.
[2019-08-12 18:31] LABS: Troponin I < 0.05 ng/Ml (<0.06)
--- NOTE | 2019-08-12 18:35 | DI.VRAD_ITS ---
PROCEDURE INFORMATION: Exam: XR Chest, 2 Views Exam date and time: 08/12/2019 18:13 Age: 59 years old Clinical indication: Other: SOB x 1week; Additional info: PT is paraplegic 15 yrs ago TECHNIQUE: Imaging protocol: XR of the chest Views: 2 views. COMPARISON: XR CHEST 2V PA LATERAL 08/10/2019 21:19 FINDINGS: Tubes, catheters and devices: Right chest wall dual lumen catheter in stable configuration, distal tip in the right atrium. Lungs: Mild vascular congestion slightly improved compared to the previous study. Dependent pulmonary opacities, atelectasis versus pneumonia. Pleural space: Moderate right and small left pleural effusions, minimally improved, however appearing persistently loculated on the right. Heart/Mediastinum: No cardiomegaly. Bones/joints: Thoracic lumbar fixation hardware appears stable. No displaced fracture. Ankylosis is suspected in the thoracic spine. IMPRESSION: 1. Mild vascular congestion slightly improved compared to the previous study. 2. Moderate right and small left pleural effusions, minimally improved, however appearing persistently loculated on the right. 3. Dependent pulmonary opacities, atelectasis versus pneumonia. Dictated and Authenticated by: Pilar Centeno MD. Ordering:RENETTA Herrera MD
--- NOTE | 2019-08-12 18:45 | DI.VRAD_ITS ---
PROCEDURE INFORMATION: Exam: CT Abdomen And Pelvis Without Contrast Exam date and time: 08/12/2019 18:18 Age: 59 years old Clinical indication: Constipation and nausea and other: Diffuse discomfort; Prior surgery; Surgery date: 6+ months; Surgery type: Back surgery , PT is paraplegic 15 yrs ago; Additional info: Abd pain , no bm x week TECHNIQUE: Imaging protocol: Computed tomography of the abdomen and pelvis without contrast. Radiation optimization: All CT scans at this facility use at least one of these dose optimization techniques: automated exposure control; mA and/or kV adjustment per patient size (includes targeted exams where dose is matched to clinical indication); or iterative reconstruction. COMPARISON: CT ABD PELVIS WO CONTRAST 08/16/2017 10:32 Chest x-ray same date, chest x-ray previous day FINDINGS: Tubes, catheters and devices: Suprapubic catheter decompressing the urinary bladder. Dialysis catheter partially seen terminating in the right atrium. Lungs: New since prior CT, significant airspace opacities in the lung bases are new. There probably compressive in the left lower lobe; pneumonia is challenging to exclude in the right lower lobe. Pleural space: At least moderate bilateral pleural effusions right greater than left new since previous CT. Liver: No hepatic masses on noncontrast imaging. Gallbladder and bile ducts: Cholelithiasis. No pericholecystic edema. Pancreas: No ductal dilation. No masses. Spleen: No splenomegaly or focal lesions. Adrenals: No mass. Kidneys and ureters: Similar nonobstructive left subcentimeter nephrolithiasis. No right nephrolithiasis. No right hydronephrosis. Stomach and bowel: A transverse colostomy moderate amount of parastomal fat herniation, similar to the previous study, no obstruction or colitis. No acute pathology in the small bowel on noncontrast imaging. Chronic disused appearance of the distal colon which is decompressed. Appendix: No evidence of appendicitis. Intraperitoneal space: No free air. No significant fluid collection. Vasculature: Mild aortoiliac atherosclerosis. No aortic aneurysm. Lymph nodes: Similar mildly enlarged inguinal lymph nodes. Bladder: Unremarkable as visualized. Reproductive: Unremarkable as visualized. Bones/joints: Hardware partially seen in the left femoral diaphysis. Severe chronic appearing deformity throughout the pelvis, in the presence of large decubitus ulcers, involving multiple areas of chronic appearing osteomyelitis, chronic dislocation of the right hip, a large amount of chronic appearing partially calcified soft tissue surrounding the right hip, dominant component measuring at least 11 x 10 cm, appearing similar to the previous study. There is again very large decubitus ulcers right worse than left, right-sided decubitus ulcer likely in communication to the perineum and ischiorectal region appearing similar to the previous study. Thoracic lumbar fixation hardware appears stable. Anatomic alignment in the spine. Ankylosis of the spine. Marked truncation of the sacrum with complete lysis of the coccyx, overall degree of lysis slightly increased since the previous study. No acute fracture. Soft tissues: The amount of pathologic appearing soft tissue overlying the sacrum has increased probably progressive decubitus ulcer. Gynecomastia is partially seen, probably present on the previous study. IMPRESSION: 1. No acute findings. 2. Severe chronic appearing deformity throughout the pelvis as described involving large decubitus ulcers with chronic osteolysis and presumably chronic osteomyelitis. 3. A transverse colostomy, moderate amount of parastomal fat herniation, similar to the previous study, no obstruction or colitis. 4. At least moderate bilateral pleural effusions right greater than left new since previous CT however appear similar to a more recent chest x-ray. 5. New since prior CT, significant airspace opacities in the lung bases. Probably compressive atelectasis in the left lower lobe; pneumonia is challenging to exclude in the right lower lobe. 6. Additional findings as described. Dictated and Authenticated by: Pilar Centeno MD. Ordering:RENETTA Herrera MD
--- NOTE | 2019-08-12 19:25 | DI.CT_ITS ---
EXAM: CT CHEST PE CTA CLINICAL HISTORY: concern for recurrent PE, H/O PE TECHNIQUE: Axial CT angiography was performed with multi-slice acquisition and multi-planar and/or 3 D reconstructions. Post IV contrast, 70 cc's of Omnipaque 350. COMPARISON: CTA CHEST PULMONARY EMBOLISM W CONTRAST from 07/08/2019 FINDINGS: There is a stable size large left pleural effusion. There has been some reaccumulation of right pleur al fluid when compared with the previous exam. There is bibasilar atelectasis, stable on the left and increasing on the right. There is a question of embolus in the small subsegmental branch vessel in the right lower lobe. No large central emboli are seen. The aorta is normal in diameter. Coronary art smith calcifications are seen. There is dilatation of the left atrium and left ventricle and some reflu x into the IVC. IMPRESSION: Interval increase in right pleural effusion. Stable left pleural effusion. Question of a tiny bran ch vessel pulmonary embolus in the right lower lobe. Bibasilar atelectasis.
[2019-08-12] MEDS: Omnipaque 350 MG/ML 100 ML BTL IJ (19:44)
[2019-08-12] MEDS: traMADol 50 MG TAB PO (19:48)
[2019-08-12] MEDS: Normal Saline 500 ML IV (19:48)
--- NOTE | 2019-08-12 20:08 | DI.VRAD_ITS ---
Addendum created by Pilar Centeno MD on 08/12/2019 10:03:49 PM EST Allowing for changes in technique the very small embolus in the right lower lobe is probably also similar to the 07/08/2019 study. Compared to the more recent prior study the right pleural effusion has significantly worsened, bowel left pleural effusion is similar. Airspace disease in the right lower lobe has significantly worsened. Initial report created on 08/12/2019 8:07:50 PM EST PROCEDURE INFORMATION: Exam: CT Angiography Chest With Contrast Exam date and time: 08/12/2019 19:13 Age: 59 years old Clinical indication: Other: Concern for recurrent pe TECHNIQUE: Imaging protocol: Computed tomographic angiography of the chest with intravenous contrast. 3D rendering: MIP and/or 3D reconstructed images were created by the technologist. Radiation optimization: All CT scans at this facility use at least one of these dose optimization techniques: automated exposure control; mA and/or kV adjustment per patient size (includes targeted exams where dose is matched to clinical indication); or iterative reconstruction. Contrast material: OMNIPAQUE 350; Contrast volume: 70 ml; Contrast route: IV; COMPARISON: CT CHEST PE CTA 06/05/2019 11:48 FINDINGS: Tubes, catheters and devices: Right chest wall dual lumen catheter in the expected position. Pulmonary arteries: Similar very small pulmonary embolus at segmental to subsegmental branch point in a right lower lobe pulmonary artery. No new emboli are seen. Aorta: No aortic aneurysm. No aortic dissection. Lungs: Basilar opacities right greater than left, probably compressive atelectasis on the left, consider atelectasis versus pneumonia on the right. Groundglass opacities in the lungs likely representing edema. Small nodular densities in the right upper lobe similar to the previous study, please consider followup as per institutional protocol. Pleural space: Significant increase in large bilateral pleural effusions with mild loculation on the right. No pneumothorax. Heart: Reflux of contrast into the azygos system probably relating to elevated right heart pressures and or volume overload similar to the previous study. Dilated left ventricle generalized mild cardiomegaly similar to the previous study. Lymph nodes: No enlarged lymph nodes. Bones/joints: Chronic appearing ankylosis in portions of the spine. Thoracic hardware again seen in stable configuration. A nonacute deformity of the right scapula is stable. Soft tissues: Gynecomastia is again seen. Other findings: Regarding the upper abdomen please see same day CT abdomen pelvis. IMPRESSION: 1. Similar very small pulmonary embolus distally in the right lower lobe. No new emboli are seen. 2. Significant increase in large bilateral pleural effusions with mild loculation on the right. 3. Basilar opacities right greater than left, probably compressive atelectasis on the left, consider atelectasis versus pneumonia on the right. A component of infarct is possible on the right given the presence of pulmonary embolus. 4. Groundglass opacities in the lungs likely representing edema. 5. Additional findings as described. Dictated and Authenticated by: Pilar Centeno MD. Ordering:RENETTA Herrera MD
[2019-08-12] MEDS: clonazePAM 1 MG TAB PO (21:27)
--- NOTE | 2019-08-13 17:01 | PDOC.ERCMPRO ---
- If Service Date Differs Date of service: 08/13/19 Time of Service: 17:01 Care Management Progress Note GABRIELLE was contacted regarding Timmy who was seen in the ED last night. The provider requested that he go to dialysis today due to having a CT with contrast last night. CM attempted to call Timmy, and left a voicemail. CM attempted to call the dialysis center in [facility] several times with no answer. CM called HH, who reported that he does not have keno terminal operator NIRAJ, although it has been suggested but the pt declined to complete the application. CM emailed the CCC at his PCP for follow up in the community. GABRIELLE called Timmy later in the day and spoke with Emili, Timmy's . She reported that RN and HYDROPRESS OPERATOR were there meeting with Timmy. CM asked if Timmy was able to get to the dialysis center today, which he had not yet. CM called the dialysis center again, who reported that they did not have any availability today, but he has a previously scheduled appointment tomorrow, 08/14/19 at 11:30am. GABRIELLE contacted the provider who stated that his labs looked good last night, and that he should be able to wait for the scheduled appointment. The provider reported that if he did not feel well he should return to the ED. GABRIELLE called Timmy to relay this message and spoke with the RN. The RN confirmed Timmy's appointment. GABRIELLE also asked Emili, Timmy's , about the possibility of him going to a rehab facility, which she declined. CM stated that once his dialysis schedule was worked out we would revisit a rehab placement with Timmy. GABRIELLE also discussed Timmy being seen by Palliative Care at this time. CM called Palliative and asked them to visit him in the community. CM emailed Timmy's CCC with the update.
== END 2019-08-12 22:55 | disposition home or self-care (01) ==
PROVIDERS: Emergency Provider Physician Assistant; PCP Family Medicine
DX: R53.1 Weakness (principal); J90 Pleural effusion, not elsewhere classified; J98.11 Atelectasis; T45.516A Underdosing of anticoagulants, initial encounter; Z91.128 Patient's intentional underdosing of medication regimen for other reason; Z99.81 Dependence on supplemental oxygen; Z99.2 Dependence on renal dialysis; Z86.711 Personal history of pulmonary embolism; Z79.01 Long term (current) use of anticoagulants
CPT/HCPCS: 36415; 71275; 80053; 93005; 96360; 99285; 71046; 74176; 84484; 85025; 93010; J3490

== ENCOUNTER 2019-09-25 16:09 | Observation (INO) | payer MEDICARE, MEDICAID, SELFPAY ==
[2019-09-25] VITALS (32 sets, daily range): BP systolic 130–160; BP diastolic 68–87; PULSE 91–104; RESP 8–25; TEMP 36.6–37.3; O2SAT 93–98
--- NOTE | 2019-09-25 16:30 | W.ED.GENAD ---
Discharge Plan Disposition Patient Disposition: [facility] INPATIENT Condition: Good Discharge Details Chief Complaint: GenMedical Clinical Impression: Anemia Admit Date/Time: 09/25/19 18:02 Admit Provider: Ryne Almeida Attending Provider: Ryne Almeida Primary Care Provider: Keegan Cruz ED Provider: Cynthia Ellis Discharge Data Discharge Date/Time-TO BE ENTERED AT DEPARTURE: 09/25/19 19:22 Medical Decision Making 59-year-old male paraplegic presents from dialysis for low H&H. Reported hemoglobin 7.4. Last records we have on file here were in July which showed that he has a H&H of 10 and 32. He reports fatigue for the last couple of weeks. He also has 2 large tunneling decubitus ulcers noted to his coccyx. Unable to stage at this time due to tunneling. He also has a right subclavian double port dialysis shunt noted, suprapubic Cadena catheter and a left lower quadrant colostomy bag noted to his abdomen. EKG reviewed by Dr. Anibal Pearce and reviewed old. Some ischemic changes noted since 08-10-19 EKGs, which could be related to his anemia. Patient does not complain of chest pain or shortness of breath at this time. Labs obtained which show Hgb 8.3, Hct 26.7 Potassium is 3.0 which is relatively normal for patient. BUN is 4 Creatinine 1.58 which is good for him. 1800: Spoke with Dr. Cox who agrees to accept patient for admission for blood transfusion and wound care for coccyx decubitus ulcers. Patient aware of plan and agrees to plan of care. He remained hemodynamically stable throughout stay. Diagnosis, Anemia Chronic Decubitus ulcers Differential: Urinary tract infection, GI bleed, HPI General Mode of arrival: EMS. Date/Time Provider Initiated Documentation: 09/25/19 16:12. Limitations to Documentation: physical limitation (Paraplegic, Dialysis). Information obtained by: patient. HPI Narrative: 59-year-old paraplegic, wheelchair bound male presents from dialysis for low H&H. He did have his complete dialysis treatment today and is due again on Sunday. Hemoglobin documented at 7.4 prior to arrival. Patient does have a subclavian right-sided dialysis shunt, left lower quadrant colostomy. And a suprapubic Cadena catheter in place upon arrival. He does appear pale. He is complaining of right hip pain which he states is chronic. Upon arrival he denies noticing any blood in his stool. On exam he has 2 large tunneling decubitus ulcers noted to his coccyx with drainage. Related Data Home Medications Medication Instructions Recorded Confirmed Ensure High Protein 237 ml PO PRN 12/16/15 09/22/19 cyanocobalamin (vitamin B-12) 1,000 mcg PO DAILY #90 tab 10/08/16 09/25/19 [Vitamin B-12] calcitriol 0.25 mcg PO DAILY #30 cap 12/29/16 09/25/19 calcium acetate 1,334 mg PO AC #180 cap 12/29/16 09/25/19 sodium bicarbonate 650 mg PO TID #60 tab 12/29/16 09/25/19 venlafaxine [Effexor XR] 150 mg PO DAILY 08/15/17 09/25/19 ferrous sulfate 325 mg PO DAILY tab 08/30/17 09/25/19 gabapentin 300 mg PO HS 02/21/18 09/25/19 tramadol 50 mg tablet 50 mg PO TID PRN #30 tab 08/05/19 09/25/19 Eliquis 5 mg PO BID 08/12/19 09/25/19 B complex-vitamin C-folic acid 0.8 mg PO DAILY 09/25/19 09/25/19 [Nephro-Hawa] acetaminophen [Tylenol] 650 mg PO Q4H PRN 09/25/19 09/25/19 amlodipine [Norvasc] 10 mg PO DAILY 09/25/19 09/25/19 buspirone 5 mg PO BID 09/25/19 09/25/19 cholecalciferol (vitamin D3) 1,000 unit PO DAILY 09/25/19 09/25/19 clonazepam 0.5 mg PO TID 09/25/19 09/25/19 docusate sodium [Colace] 100 mg PO BID 09/25/19 09/25/19 Previous Rx's Medication Instructions Recorded cyanocobalamin (vitamin B-12) 1,000 mcg PO DAILY #90 tab 10/08/16 [Vitamin B-12] calcitriol 0.25 mcg PO DAILY #30 cap 12/29/16 calcium acetate 1,334 mg PO AC #180 cap 12/29/16 sodium bicarbonate 650 mg PO TID #60 tab 12/29/16 ferrous sulfate 325 mg PO DAILY tab 08/30/17 tramadol 50 mg tablet 50 mg PO TID PRN #30 tab 08/05/19 Allergies Allergy/AdvReac Type Severity Reaction Status Date / Time oxycodone Allergy Skin Rash Unverified 09/25/19 16:31 topiramate [From Topamax] AdvReac Severe put me Unverified 09/25/19 16:31 out, couldn't wake me up General Stated Complaint: GenMedical AMY: 3 Review of Systems All systems reviewed & are unremarkable except as noted in HPI and below Constitutional Constitutional: Reports fatigue, Denies weakness and Reports weight loss Cardiovascular Cardiovascular: Reports edema, Denies dyspnea and Reports other (Paraplegic) Respiratory Respiratory: Denies cough, Denies dyspnea and Denies wheezing Gastrointestinal Gastrointestinal: Denies hematemesis and Reports other (Colostomy bag noted) Genitourinary Genitourinary: Reports other (Has supra pubic cadena in place) Neurologic Neurologic: Denies weakness Endocrine Endocrine: Reports fatigue Allergic/Immunologic Allergic/Immunologic: Denies wheezing [facility] History Agoraphobia Anxiety Cerumen impaction Chronic anemia Chronic anemia (Acute) Chronic pain 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, stage II Chronic ulcer of left foot CKD (chronic kidney disease), stage IV (Acute) Decubitus ulcer Decubitus ulcer of coccyx (Acute) Depression (emotion) Elevated TSH ESRD (end stage renal disease) on dialysis (Chronic) Essential hypertension (Acute) Hematuria (Acute) Hypogonadism in male (Acute) Neurogenic bladder Paraplegia Suicidal ideation Testosterone deficiency Surgical History Colostomy Hip debridement, with bone resection s/p right hip remova for bony infection (Inactive) Spinal Fusion Family History Mother Depression Diabetes Father Cancer Heart disease Social History Smoking/Tobacco Use Status: Current-Occasional Tobacco Type: cigarettes Quit status: not considering quitting Second Hand Exposure: Yes Alcohol Intake: former Drug use: Never Substance use type: does not use Caregiver/Support person: Yes Household members: spouse and friend(s) Housing: house Do you need help understanding health information?: Often Pets and animals: Yes Pets and animals: cat(s) and dog(s) Sexually active: No Do you think of yourself as: straight/heterosexual What is your relationship status?: How often do you talk on the phone with friends or family?: never How often do you get together with friends or relatives?: never How often do you attend mandaen or rastafarian services?: decline to answer Do you belong to any clubs or organized social groups?: no Panel score (0-1 are the most socially isolated patients): 1 Marcelle/Shinto: Seventh Day Nondenominational Special marcelle needs: No Seatbelt use: always Helmet use: No Drive intox or ride w/intox lunch truck driver: No Do you feel safe at home: Yes Do you feel safe in your relationship?: Yes Exam Const General: no acute distress and frail appearing Nutritional Appearance: thin Orientation: alert, awake and oriented x3 Chest Chest: other (Right subclavian dialysis shunt in place) Resp Effort & Inspection: normal respiratory effort Auscultation: clear to auscultation bilaterally Cardio Rate: regular rate Rhythm: regular rhythm Heart Sounds: S1 normal and S2 normal GI Inspection: other (Colostomy bag noted with brown soft stool output) Palpation: soft Auscultation: normal bowel sounds Rectal Exam: heme negative stool (Stool sample obtained from colostomy, negative for occult blood. ) General: other (Suprapubic cathter inplace with thick cloudy urine noted) Skin Wounds: fistulous tract (Decubitus ulcers x 2 with tunneling tracts, unable to stage at this time) and wounds noted Extrem Right lower extremity: normal to inspection (Loss of muscle tone) and edema Left lower extremity: normal to inspection (Loss of muscle tone) and edema Course Vital Signs Vital signs: Vital Signs Temperature 37.3 C 09/25/19 16:13 Pulse 104 H 09/25/19 16:13 Respiratory Rate 16 09/25/19 16:13 Blood Pressure 130/70 09/25/19 16:13 Pulse Oximetry 97 09/25/19 16:13 Temperature 37.3 C 09/25/19 16:13 Temperature Source Skin 09/25/19 16:13 Pulse 104 H 09/25/19 16:13 Respiratory Rate 16 09/25/19 16:13 Blood Pressure 130/70 09/25/19 16:13 Blood Pressure Position Supine 09/25/19 16:13 Pulse Oximetry 97 09/25/19 16:13 Oxygen Delivery Method Room Air 09/25/19 16:13 Oxygen Flow Rate 0 09/25/19 16:13 Pain Level 8 09/25/19 16:13 Comment 09/25/19 16:13
[2019-09-25 16:56] LABS: Abs Immature Grans 0.01 k/cumm (0.0-0.09); Absolute Basophil Count 0.02 k/cumm (0.0-0.2); Absolute Eosinophil Count 0.01 k/cumm (0.0-0.7); Absolute Lymphocyte Count 0.51 k/cumm (1.2-3.4); Absolute Monocyte Count 0.12 k/cumm (0.11-0.7); Absolute Neutrophil Count 7.44 k/cumm (1.2-6.7); Basophils % 0.2; Eosinophils % 0.1; HCT 26.7 % (40.0-50.0); HGB 8.3 g/dL (13.5-17.5); Immature Grans % 0.1 %; Lymphocytes % 6.3; Mean Corp. HGB Concentration 31.1 g/dL (32.0-36.0); Mean Corpuscular Hemoglobin 26.3 pg (27.0-33.0); Mean Corpuscular Volume 84.8 fL (80-95); Mean Platelet Volume 8.7 fL (8.0-11.0); Monocytes % 1.5; Neutrophils % 91.8; Platelet Count 389 x1000/uL (130-400); RBC 3.15 m/cumm (4.50-6.00); White Blood Cell Count 8.11 k/cumm (4.4-10.8)
[2019-09-25 17:07] LABS: INR 1.1 (0.9-1.1); Prothrombin Time 10.9 sec (9.3-11.0)
[2019-09-25 17:14] LABS: ALT 8 U/L (16-63); AST 20 U/L (15-37); Albumin 2.4 g/dL (3.4-5.0); Alkaline Phosphatase 225 U/L (46-116); Anion Gap 9.2 mmol/L (3-11); BUN 4 mg/dL (7-18); Bilirubin, Total 0.5 mg/dL (0.2-1.0); CO2 30.8 mmol/L (21.0-32.0); CREATININE 1.58 mg/dL (0.70-1.30); Calcium 8.5 mg/dL (8.5-10.1); Chloride 97 mmol/L (98-107); Estimated GFR 45.43 (mL/min/1.73m2); Glucose 103 mg/dL (74-106); Sodium 137 mmol/L (136-145); Total Protein 7.7 g/dL (6.4-8.2)
[2019-09-25 17:18] LABS: Troponin I < 0.05 ng/Ml (<0.06)
[2019-09-25 17:27] LABS: Anisocytosis 3+; Diff Comment RBC Morph Reviewed; Hypochromasia 2+
[2019-09-25 20:50] LABS: Troponin I < 0.05 ng/Ml (<0.06)
[2019-09-25] MEDS: Sodium Bicarbonate 650 MG TAB PO (20:53)
[2019-09-25] MEDS: clonazePAM 0.5 MG TAB PO (20:53)
[2019-09-25] MEDS: traMADol 50 MG TAB PO (20:53)
--- NOTE | 2019-09-25 21:33 | W.PM.HP.N ---
Date of service: 09/25/19 Time of Service: 21:33 Assessment and Plan Assessment and plan (1) Anemia in chronic kidney disease: Status: Acute Assessment and plan: Patient was transfused 1 unit of packed red cells which was started in the emergency department and completed after admission to the medical floor. We will recheck his blood count in the morning. And then we will determine whether or not he needs further transfusions. In the future he should either receive blood transfusions while on dialysis or his dental hygienist can order outpatient transfusions through the infusion center [facility]. Qualifiers: Chronic kidney disease stage: on chronic dialysis Qualified Code(s): N18.6 - End stage renal disease; D63.1 - Anemia in chronic kidney disease; Z99.2 - Dependence on renal dialysis (2) ESRD (end stage renal disease) on dialysis: Status: Chronic Assessment and plan: Patient will need to be either discharged home for follow-up outpatient hemodialysis to be performed on Sunday or if he needs further blood transfusions he will have to be transferred to a tertiary care center where he can be hemodialyzed after blood transfusion (3) Decubitus ulcer of coccyx: Status: Acute Assessment and plan: We will have the nursing staff packed this with alginate and cover with Mepilex but otherwise will consult with wound care nurse in the morning. Qualifiers: Pressure injury stage: unstageable Qualified Code(s): L89.150 - Pressure ulcer of sacral region, unstageable History of Present Illness History of Present Illness Chief Complaint: Anemia Narrative: 59-year-old male with past medical history of pulmonary emboli treated with apixaban, end-stage renal disease on hemodialysis every Sunday//Sunday with his last hemodialysis completed today presents with worsening chronic anemia. He was sent over from [facility] by his dental hygienist for blood transfusion. His baseline hemoglobin been around 9 to 10 g as of July 2019 but a repeat CBC was obtained during dialysis this afternoon found to be low at 7.4 g. He has been complaining of fatigue for the last couple weeks and exertional dyspnea but no chest pain. Stool was checked in the emergency department found to be Hemoccult negative. Repeat hemoglobin was tested and found to be 8.3 g with hematocrit 26%. He has a normal white cell count of 8100. He was found to be afebrile with a heart rate of 92 bpm and mildly hypertensive with a blood pressure 160/87. Patient is admitted on observation status for blood transfusion. The PA in the emergency department was going to transfuse him 2 units however because he requires hemodialysis I asked that he only get 1 unit tonight and reassess his H&H in the morning. If he needs further transfusions he will probably need to be transferred to the hemodialysis center so he can receive hemodialysis to control his volume status after transfusion. PA also noted that he has tunneled decubiti ulcers over the sacrum and ischium. These are not new and are chronic and being managed as an outpatient by wound care nurse. Review of Systems All systems reviewed & are unremarkable except as noted in HPI and below PFSH Medical History Agoraphobia Anxiety Cerumen impaction Chronic anemia Chronic anemia (Acute) Chronic pain 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, stage II Chronic ulcer of left foot CKD (chronic kidney disease), stage IV (Acute) Decubitus ulcer Decubitus ulcer of coccyx (Acute) Depression (emotion) Elevated TSH ESRD (end stage renal disease) on dialysis (Chronic) Essential hypertension (Acute) Hematuria (Acute) Hypogonadism in male (Acute) Neurogenic bladder Paraplegia Suicidal ideation Testosterone deficiency Surgical History Colostomy Hip debridement, with bone resection s/p right hip remova for bony infection (Inactive) Spinal Fusion Family History Mother Depression Diabetes Father Cancer Heart disease Social History Smoking/Tobacco Use Status: Current-Occasional Tobacco Type: cigarettes Quit status: not considering quitting Second Hand Exposure: Yes Alcohol Intake: former Drug use: Never Substance use type: does not use Caregiver/Support person: Yes Household members: spouse and friend(s) Housing: house Do you need help understanding health information?: Often Pets and animals: Yes Pets and animals: cat(s) and dog(s) Sexually active: No Do you think of yourself as: straight/heterosexual What is your relationship status?: How often do you talk on the phone with friends or family?: never How often do you get together with friends or relatives?: never How often do you attend yazidism or yazdanism services?: decline to answer Do you belong to any clubs or organized social groups?: no Panel score (0-1 are the most socially isolated patients): 1 Marcelle/Sabianism: Seventh Day Lutheran Special marcelle needs: No Seatbelt use: always Helmet use: No Drive intox or ride w/intox 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 company 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: No Do you feel safe at home: Yes Do you feel safe in your relationship?: Yes Meds Home Medications and Allergies Home Medications Medication Instructions Recorded Confirmed Type Ensure High Protein 237 ml PO PRN 12/16/15 09/22/19 History cyanocobalamin (vitamin B-12) 1,000 mcg PO DAILY #90 tab 10/08/16 09/25/19 Rx [Vitamin B-12] calcitriol 0.25 mcg PO DAILY #30 cap 12/29/16 09/25/19 Rx calcium acetate 1,334 mg PO AC #180 cap 12/29/16 09/25/19 Rx sodium bicarbonate 650 mg PO TID #60 tab 12/29/16 09/25/19 Rx venlafaxine [Effexor XR] 150 mg PO DAILY 08/15/17 09/25/19 History ferrous sulfate 325 mg PO DAILY tab 08/30/17 09/25/19 Rx gabapentin 300 mg PO HS 02/21/18 09/25/19 History tramadol 50 mg tablet 50 mg PO TID PRN #30 tab 08/05/19 09/25/19 Rx Eliquis 5 mg PO BID 08/12/19 09/25/19 History B complex-vitamin C-folic acid 0.8 mg PO DAILY 09/25/19 09/25/19 History [Nephro-Hawa] acetaminophen [Tylenol] 650 mg PO Q4H PRN 09/25/19 09/25/19 History amlodipine [Norvasc] 10 mg PO DAILY 09/25/19 09/25/19 History buspirone 5 mg PO BID 09/25/19 09/25/19 History cholecalciferol (vitamin D3) 1,000 unit PO DAILY 09/25/19 09/25/19 History clonazepam 0.5 mg PO TID 09/25/19 09/25/19 History docusate sodium [Colace] 100 mg PO BID 09/25/19 09/25/19 History Allergies Allergy/AdvReac Type Severity Reaction Status Date / Time oxycodone Allergy Skin Rash Unverified 09/25/19 16:31 topiramate [From Topamax] AdvReac Severe put me Unverified 09/25/19 16:31 out, couldn't wake me up Exam Narrative Exam Narrative: Middle-age male appears to be older than his stated age. He is alert and oriented person place time circumstance. Neck supple nontender no JVD. Lungs are clear to auscultation. Heart is regular rate and rhythm without murmur rub or gallop. Abdomen soft and nontender with normal active bowel sounds. Colostomy is intact pink, suprapubic catheter is in tact without drainage around the ostomy. He also has a transurethral Ovalles catheter in place. Both legs have dark cloudy urine however the patient states that he makes very little urine in the urine in his bags are a few days old. Examination of his sacrum and ischium reveals 3 deep tunneling ulcers 1 over the sacrum coccygeal area and the other 2 are over the ischium on the right and the left. Results Labs Result diagrams: 09/25/19 16:45 09/25/19 16:45 Labs: Laboratory Results - last 24 hr 09/25/19 09/25/19 09/25/19 16:45 16:45 16:45 WBC 8.11 RBC 3.15 L Hgb 8.3 L Hct 26.7 L MCV 84.8 MCH 26.3 L MCHC 31.1 L RDW 16.0 H Plt Count 389 MPV 8.7 Immature Gran % 0.1 Neutrophils % 91.8 Lymphocytes % 6.3 Monocytes % 1.5 Eosinophils % 0.1 Basophils % 0.2 Absolute Neutrophils 7.44 H Absolute Lymphocytes 0.51 L Absolute Monocytes 0.12 Absolute Eosinophils 0.01 Absolute Basophils 0.02 Differential Comment Rbc morph reviewed RBC Morphology See below Hypochromasia 2+ Anisocytosis 3+ PT 10.9 INR 1.1 Sodium 137 Potassium 3.0 L Chloride 97 L Carbon Dioxide 30.8 Anion Gap 9.2 BUN 4 L Creatinine 1.58 H Estimated GFR/1.73 m2 45.43 Glucose 103 Calcium 8.5 Total Bilirubin 0.5 AST 20 ALT 8 L Alkaline Phosphatase 225 H Troponin I < 0.05 Total Protein 7.7 Albumin 2.4 L Patient ABO/Rh Antibody Screen Crossmatch 09/25/19 09/25/19 16:45 20:30 WBC RBC Hgb Hct MCV MCH MCHC RDW Plt Count MPV Immature Gran % Neutrophils % Lymphocytes % Monocytes % Eosinophils % Basophils % Absolute Neutrophils Absolute Lymphocytes Absolute Monocytes Absolute Eosinophils Absolute Basophils Differential Comment RBC Morphology Hypochromasia Anisocytosis PT INR Sodium Potassium Chloride Carbon Dioxide Anion Gap BUN Creatinine Estimated GFR/1.73 m2 Glucose Calcium Total Bilirubin AST ALT Alkaline Phosphatase Troponin I < 0.05 Total Protein Albumin Patient ABO/Rh A Positive Antibody Screen Negative Crossmatch See Detail Last Vital Signs Temp 36.7 C 09/25/19 19:33 Pulse 104 H 09/25/19 21:28 Resp 18 09/25/19 19:33 BP 160/87 H 09/25/19 19:33 Pulse Ox 98 09/25/19 19:33
[2019-09-26] MEDS: Acetaminophen 325 MG TAB PO (00:25)
[2019-09-26 01:07] VITALS: BP 159/87; PULSE 103; RESP 16; TEMP 37.2; O2SAT 97
[2019-09-26] MEDS: Melatonin 3 MG TAB 9 MG PO (01:53)
[2019-09-26 04:50] VITALS: BP 144/71; PULSE 86; RESP 16; TEMP 36.4; O2SAT 94
[2019-09-26 07:30] VITALS: BP 160/87; PULSE 82; RESP 16; TEMP 36.9; O2SAT 96
[2019-09-26 07:37] LABS: Abs Immature Grans 0.01 k/cumm (0.0-0.09); Absolute Basophil Count 0.05 k/cumm (0.0-0.2); Absolute Eosinophil Count 0.11 k/cumm (0.0-0.7); Absolute Lymphocyte Count 1.88 k/cumm (1.2-3.4); Absolute Neutrophil Count 4.83 k/cumm (1.2-6.7); Basophils % 0.7; Eosinophils % 1.4; HCT 26.7 % (40.0-50.0); HGB 8.7 g/dL (13.5-17.5); Immature Grans % 0.1 %; Lymphocytes % 24.5; Mean Corp. HGB Concentration 32.6 g/dL (32.0-36.0); Mean Corpuscular Hemoglobin 27.7 pg (27.0-33.0); Monocytes % 10.4; Neutrophils % 62.9; Platelet Count 375 x1000/uL (130-400); RBC 3.14 m/cumm (4.50-6.00); RBC Distribution Width 15.2 % (11.8-14.1); White Blood Cell Count 7.68 k/cumm (4.4-10.8)
[2019-09-26 07:56] LABS: BUN 11 mg/dL (7-18); CREATININE 2.67 mg/dL (0.70-1.30); Calcium 8.1 mg/dL (8.5-10.1); Chloride 98 mmol/L (98-107); Glucose 83 mg/dL (74-106); Sodium 136 mmol/L (136-145)
[2019-09-26 08:00] LABS: Potassium 2.9 mmol/L (3.5-5.1)
[2019-09-26] MEDS: Apixaban 5 MG TAB 2.5 MG PO (09:14)
[2019-09-26] MEDS: Cholecalciferol (Vitamin D3) 1,000 UNIT TAB 1000 UNITS PO (09:14)
[2019-09-26] MEDS: Cyanocobalamin 500 MCG TAB 1000 MCG PO (09:15)
[2019-09-26] MEDS: Calcitriol 0.25 MCG CAP PO (09:15)
[2019-09-26] MEDS: Ferrous Sulfate 325 MG TAB PO (09:15)
[2019-09-26] MEDS: clonazePAM 0.5 MG TAB PO ×2 (09:15→13:39)
[2019-09-26] MEDS: amLODIPine 5 MG TAB PO (09:16)
[2019-09-26] MEDS: busPIRone 5 MG TAB PO (09:16)
[2019-09-26] MEDS: Venlafaxine 150 MG CAPCR PO (09:16)
[2019-09-26] MEDS: Docusate Sodium 100 MG CAP PO (09:16)
[2019-09-26] MEDS: Sodium Bicarbonate 650 MG TAB PO ×2 (09:16→13:39)
--- NOTE | 2019-09-26 13:16 | W.PM.DS.N ---
Date of service: 09/26/19 Time of Service: 13:17 DS: Diagnosis Discharge Diagnosis (1) Anemia in chronic kidney disease: Status: Acute Asessment and Plan: Admitted for blood transfusion for hemoglobin of 7.4, on repeat 8.3. Patient received 1 unit of packed red cells hemoglobin came up to 8.7. Patient was overall hemodynamically stable. (2) ESRD (end stage renal disease) on dialysis: Status: Chronic Asessment and Plan: Patient had hemodialysis on the day of admission, 09/25/2019. His potassium on admission was 3.0 and on hospital day 1 was 2.9. I gave him 40 mEq of potassium anticipating it will be checked again around the time of his next dialysis. (3) Decubitus ulcer of coccyx: Status: Acute Asessment and Plan: Severe stage IV decubital ulcers. He receives regular dressing changes through home health. These are malodorous but in the absence of fever or leukocytosis no antibiotic treatment was started during this admission. Discharge Plan Disposition Patient Disposition: HOME W/HOME HEALTH SERVICE Condition: Stable Discharge Details Chief Complaint: GenMedical Clinical Impression: Anemia Reason For Visit: ANEMIA Admit Date/Time: 09/25/19 18:02 Admit Provider: Ryne Almeida Attending Provider: Ryne Almeida Primary Care Provider: Keegan Cruz ED Provider: [facility] [place] [facility] Course Hospital Course: 59-year-old male with past medical history of pulmonary emboli treated with apixaban, end-stage renal disease on hemodialysis every Sunday//Sunday with his last hemodialysis completed 09/25/19 presents with worsening chronic anemia. He was sent over from [facility] by his color stripper for blood transfusion. His baseline hemoglobin been around 9 to 10 g as of July 2019 but a repeat CBC was obtained during dialysis this afternoon found to be low at 7.4 g. He has been complaining of fatigue for the last couple weeks and exertional dyspnea but no chest pain. Stool was checked in the emergency department found to be Hemoccult negative. Repeat hemoglobin was tested and found to be 8.3 g with hematocrit 26%. He has a normal white cell count of 8100. He was found to be afebrile with a heart rate of 92 bpm and mildly hypertensive with a blood pressure 160/87. Patient was admitted on observation status for blood transfusion. He received 1 unit prbc's. Hg came up to 8.7. Decubital ulcers over the sacrum and ischium were dressed. These are not new and are chronic and being managed as an outpatient by wound care nurse. Patient was concerned that he might be coming down with something. He did not have a fever. White blood cell count was normal. We did not institute antibiotic therapy. Plan is for him to follow-up as scheduled. Home Meds and New Rx's Prescriptions: Continued Ensure High Protein 237 ML liquid 237 ml PO PRN RF: 0 tramadol 50 mg tablet 50 mg PO TID PRN (Reason: pain) Qty: 30 RF: 5 cyanocobalamin (vitamin B-12) [Vitamin B-12] 500 MCG tablet 1,000 mcg PO DAILY Qty: 90 RF: 0 venlafaxine [Effexor XR] 150 MG capsule,extended release 24hr 150 mg PO DAILY RF: 0 ferrous sulfate 325 MG tablet 325 mg PO DAILY RF: 0 gabapentin 300 MG capsule 300 mg PO HS RF: 0 buspirone 5 mg Tablet 5 mg PO BID RF: 0 cholecalciferol (vitamin D3) 25 mcg (1,000 unit) Tablet 1,000 unit PO DAILY RF: 0 docusate sodium [Colace] 100 mg Capsule 100 mg PO BID RF: 0 clonazepam 1 mg tablet 0.5 mg PO TID RF: 0 Nephro-Hawa 0.8 mg Tablet 0.8 mg PO DAILY RF: 0 amlodipine [Norvasc] 5 mg tablet 10 mg PO DAILY RF: 0 acetaminophen [Tylenol] 325 mg Tablet 650 mg PO Q4H PRNRF: 0 calcitriol 0.25 MCG capsule 0.25 mcg PO DAILY Qty: 30 RF: 0 calcium acetate 667 MG capsule 1,334 mg PO AC Qty: 180 RF: 0 sodium bicarbonate 650 MG tablet 650 mg PO TID Qty: 60 RF: 0 Changed Eliquis 5 mg Tablet 2.5 mg PO BID Qty: 0 RF: 0 Discharge Instructions Instructions: Anemia (DC) Activity:: Activity as Tolerated Equipment/Supplies:: No Equipment Needed Diet:: As Tolerated Discharge Orders Discharge Orders: Discharge Order (Routine); Ordered 09/26/19 Ordered By: Jean Paul Copeland Other Ambulatory Orders: Potassium (Routine) Timeframe: 3 Days Location: None Selected Ordered By: Jean Paul Copeland DS: Summary Status at Discharge Functional status at discharge: bed bound Overall status at discharge: patient is back to baseline Mental Status: mental status grossly normal Speech and Movement: speech and movement normal Mood: congruent mood Affect: normal affect Exam Narrative Exam Narrative: Patient was complaining that he did not feel well. He has no respiratory symptoms. His lung exam is completely clear on the right and left. He has no nasal discharge or congestion. His heart sounds are strong and regular. He had no abdominal tenderness. He has 2 catheters, one suprapubic, 1 Ovalles through the penis. His decubital ulcers are well dressed, malodorous, no apparent discharge. Lower extremities showed flaccid paralysis no skin breakdown. Psych Mental Status: mental status grossly normal Speech and Movement: speech and movement normal Mood: congruent mood Affect: normal affect DS: Data Vitals/I&O Vitals and I&O: Vital Signs Temperature 36.9 C 09/26/19 07:30 Temperature Source Tympanic 09/26/19 07:30 Pulse 82 09/26/19 07:30 Pulse Rhythm Regular 09/25/19 23:45 Pulse 93 H 09/25/19 18:50 Respiratory Rate 16 09/26/19 07:30 Respiratory Effort Non-Labored 09/25/19 23:45 Respiratory Depth Normal 09/25/19 23:45 Respiratory Pattern Normal 09/25/19 23:45 Blood Pressure 160/87 H 09/26/19 07:30 Blood Pressure Mean 87 09/25/19 18:45 Blood Pressure Position Supine 09/25/19 16:13 Pulse Oximetry 96 09/26/19 07:30 Oxygen Delivery Method Room Air 09/26/19 07:30 Oxygen Flow Rate 0 09/26/19 07:30 Pain Level 0 09/26/19 07:30 Comment 09/25/19 19:33 Intake & Output 09/25/19 09/26/19 09/26/19 23:59 11:59 23:59 Intake Total 490 / 490 240 / 240 Output Total 200 / 200 75 / 75 Balance 290 / 290 165 / 165 Weight 63.1 kg 63.6 kg Intake: Oral 240 / 240 240 / 240 Blood Product 250 / 250 Rbc Leuko Reduced Unit 250 / 250 [id number] Output: Urine 75 / 75 Stool 200 / 200 Other: Urine Color Brown Urine Appearance Cloudy Cloudy Sediment Comment Per pt, this is what has been collecting in bag for 3 days. This was not sent for UA as it is 3 days old. Data Completed and Pending Labs on day of discharge: Labs from last 24 hours 09/26/19 09/26/19 09/25/19 07:00 07:00 20:30 WBC 7.68 RBC 3.14 L Hgb 8.7 L Hct 26.7 L MCV 85.0 MCH 27.7 MCHC 32.6 RDW 15.2 H Plt Count 375 MPV 9.0 Immature Gran % 0.1 Neutrophils % 62.9 Lymphocytes % 24.5 Monocytes % 10.4 Eosinophils % 1.4 Basophils % 0.7 Absolute Neutrophils 4.83 Absolute Lymphocytes 1.88 Absolute Monocytes 0.80 H Absolute Eosinophils 0.11 Absolute Basophils 0.05 Differential Comment RBC Morphology Hypochromasia Anisocytosis PT INR Sodium 136 Potassium 2.9 L* Chloride 98 Carbon Dioxide 32.0 Anion Gap 6.0 BUN 11 D Creatinine 2.67 H D Estimated GFR/1.73 m2 24.80 Glucose 83 Calcium 8.1 L Total Bilirubin AST ALT Alkaline Phosphatase Troponin I < 0.05 Total Protein Albumin Patient ABO/Rh Antibody Screen Crossmatch 09/25/19 09/25/19 09/25/19 16:45 16:45 16:45 WBC 8.11 RBC 3.15 L Hgb 8.3 L Hct 26.7 L MCV 84.8 MCH 26.3 L MCHC 31.1 L RDW 16.0 H Plt Count 389 MPV 8.7 Immature Gran % 0.1 Neutrophils % 91.8 Lymphocytes % 6.3 Monocytes % 1.5 Eosinophils % 0.1 Basophils % 0.2 Absolute Neutrophils 7.44 H Absolute Lymphocytes 0.51 L Absolute Monocytes 0.12 Absolute Eosinophils 0.01 Absolute Basophils 0.02 Differential Comment Rbc morph reviewed RBC Morphology See below Hypochromasia 2+ Anisocytosis 3+ PT 10.9 INR 1.1 Sodium Potassium Chloride Carbon Dioxide Anion Gap BUN Creatinine Estimated GFR/1.73 m2 Glucose Calcium Total Bilirubin AST ALT Alkaline Phosphatase Troponin I Total Protein Albumin Patient ABO/Rh A Positive Antibody Screen Negative Crossmatch See Detail 09/25/19 16:45 WBC RBC Hgb Hct MCV MCH MCHC RDW Plt Count MPV Immature Gran % Neutrophils % Lymphocytes % Monocytes % Eosinophils % Basophils % Absolute Neutrophils Absolute Lymphocytes Absolute Monocytes Absolute Eosinophils Absolute Basophils Differential Comment RBC Morphology Hypochromasia Anisocytosis PT INR Sodium 137 Potassium 3.0 L Chloride 97 L Carbon Dioxide 30.8 Anion Gap 9.2 BUN 4 L Creatinine 1.58 H Estimated GFR/1.73 m2 45.43 Glucose 103 Calcium 8.5 Total Bilirubin 0.5 AST 20 ALT 8 L Alkaline Phosphatase 225 H Troponin I < 0.05 Total Protein 7.7 Albumin 2.4 L Patient ABO/Rh Antibody Screen Crossmatch [facility] Medical History Agoraphobia Anxiety Cerumen impaction Chronic anemia Chronic anemia (Acute) Chronic pain 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, stage II Chronic ulcer of left foot CKD (chronic kidney disease), stage IV (Acute) Decubitus ulcer Decubitus ulcer of coccyx (Acute) Depression (emotion) Elevated TSH ESRD (end stage renal disease) on dialysis (Chronic) Essential hypertension (Acute) Hematuria (Acute) Hypogonadism in male (Acute) Neurogenic bladder Paraplegia Suicidal ideation Testosterone deficiency Surgical History Colostomy Hip debridement, with bone resection s/p right hip remova for bony infection (Inactive) Spinal Fusion Family History Mother Depression Diabetes Father Cancer Heart disease Social History Smoking/Tobacco Use Status: Current-Occasional Tobacco Type: cigarettes Quit status: not considering quitting Second Hand Exposure: Yes Alcohol Intake: former Drug use: Never Substance use type: does not use Caregiver/Support person: Yes Household members: spouse and friend(s) Housing: house Do you need help understanding health information?: Often Pets and animals: Yes Pets and animals: cat(s) and dog(s) Sexually active: No Do you think of yourself as: straight/heterosexual What is your relationship status?: How often do you talk on the phone with friends or family?: never How often do you get together with friends or relatives?: never How often do you attend baptism or yazidi services?: decline to answer Do you belong to any clubs or organized social groups?: no Panel score (0-1 are the most socially isolated patients): 1 Marcelle/Restorationist: Seventh Day Adventism Special marcelle needs: No Seatbelt use: always Helmet use: No Drive intox or ride w/intox driver's license examiner: No Do you feel safe at home: Yes Do you feel safe in your relationship?: Yes
--- NOTE | 2019-09-26 13:33 | PDOC.CMDIS ---
LACE Index Scoring Tool - Questions: Length of Stay (in days): 1 Acuity (Admit via E.D.?): Yes Comorbidities: with End Organ Damage, Mild Liver/Renal Disease, Liver or Renal Disease E.D. Visits: 12 - Answers: Total Score: 13 Risk of Readmission: High Risk Care Management Discharge Reason for Hospitalization: Anemia Discharge Plan: Timmy will return home with a resumption of services. He will transport by [employer] [facility] coordinated by this property underwriter. Patient/Family Education Needs: Review discharge instructions, discuss Ask Me Three. Services Needed at Discharge: Home Health Care Services (Resumption ), Transportation ([facility] )
[2019-09-26] MEDS: Potassium Chloride 20 MEQ TABCR 40 MEQ PO (13:39)
== END 2019-09-26 14:23 | disposition home health service (06) ==
LOC: ER 18:45 → MS 19:28
PROVIDERS: Admitting Provider Internal Medicine; Emergency Provider Registered Nurse Emergency; PCP Family Medicine; Visit Provider Family Medicine
DX: N18.6 End stage renal disease (principal); D63.1 Anemia in chronic kidney disease; L89.154 Pressure ulcer of sacral region, stage 4; L89.324 Pressure ulcer of left buttock, stage 4; L89.314 Pressure ulcer of right buttock, stage 4; Z99.2 Dependence on renal dialysis; Z86.711 Personal history of pulmonary embolism; F17.210 Nicotine dependence, cigarettes, uncomplicated; Z79.01 Long term (current) use of anticoagulants
CPT/HCPCS: 36415; 36430; 80048; 80053; 86850; 86900; 86901; 86920; 86945; 93005; 99217; 99220; 99285; 84484; 85025; 85610; 93010; G0378; P9016

== ENCOUNTER 2019-11-05 14:05 | Observation (INO) | payer MEDICARE, MEDICAID, SELFPAY ==
[2019-11-05] VITALS (72 sets, daily range): BP systolic 134–156; BP diastolic 79–92; PULSE 98–104; RESP 14–29; TEMP 36.7–37.2; O2SAT 93–94
--- NOTE | 2019-11-05 14:30 | DI.RAD_ITS ---
EXAM: XR CHEST 2V PA LATERAL CLINICAL HISTORY: SOB, ESRD TECHNIQUE: 2D digital imaging was performed. COMPARISON: XR CHEST 2V PA LATERAL from 08/10/2019 XR CHEST 2V PA LATERAL from 08/12/2019 FINDINGS: A double-lumen catheter is again noted, unchanged in position. The heart size is normal. spinal kvng s are again noted. There are small bilateral pleural effusions, smaller when compared with the previ ous exam. No focal infiltrate is seen. IMPRESSION: Decreased size of bilateral pleural effusions. DATA REPOSITORY: RADIATION DOSE DELIVERED:
--- NOTE | 2019-11-05 14:35 | W.ED.GENAD ---
Discharge Plan Disposition Patient Disposition: [facility] INPATIENT Condition: Stable Discharge Details Chief Complaint: Vascular Clinical Impression: Dyspnea Primary Care Provider: Keegan Cruz ED Provider: Renato Gregory Home Meds and New Rx's Prescriptions: No Action Ensure High Protein 237 ML liquid 237 ml PO PRN RF: 0 tramadol 50 mg tablet 50 mg PO TID PRN (Reason: pain) Qty: 30 RF: 5 Eliquis 2.5 mg tablet 2.5 mg PO BID Qty: 60 RF: 11 venlafaxine [Effexor XR] 150 MG capsule,extended release 24hr 150 mg PO DAILY RF: 0 ferrous sulfate 325 MG tablet 325 mg PO DAILY RF: 0 gabapentin 300 MG capsule 300 mg PO HS RF: 0 cholecalciferol (vitamin D3) 25 mcg (1,000 unit) Tablet 1,000 unit PO DAILY RF: 0 clonazepam 1 mg tablet 0.5 mg PO TID RF: 0 Nephro-Hawa 0.8 mg Tablet 0.8 mg PO DAILY RF: 0 amlodipine [Norvasc] 5 mg tablet 10 mg PO DAILY RF: 0 acetaminophen [Tylenol] 325 mg Tablet 650 mg PO Q4H PRNRF: 0 calcitriol 0.25 MCG capsule 0.25 mcg PO DAILY Qty: 30 RF: 0 calcium acetate(phosphat bind) 667 MG capsule 1,334 mg PO AC Qty: 180 RF: 0 sodium bicarbonate 650 MG tablet 650 mg PO TID Qty: 60 RF: 0 Medical Decision Making This 59-year-old male referred from primary care office with report of weeks of intermittent episodes of shortness of breath, in association with not taking his prescribed anticoagulation due to a misinterpretation for approximately 1 month's time. States to me that he had a cough that resolved on its own 3 weeks ago. Has not had any chest pain. He does have intermittent episodes of shortness of breath. No fluid gain. He had normal dialysis run yesterday. Patient presents afebrile with a temp of 36.7, pulse is 90-100, blood pressure 142/85, 94% sat on room air. Speaking in full sentences and not in any acute distress. Given his lack of anticoagulation, must exclude recurrent PE. As he is already on dialysis, must consider avoiding unnecessary contrast exposure and patient referred for chest x-ray. Chest x-ray reveals small bilateral pleural effusions. These are decreased when compared to previous exam, no focal infiltrate seen. Patient does have indeterminate elevated troponin of 0.08 & 0.10. He does certainly have high risk of recurrent PE and will need to restart apixaban. I do feel it is reasonable to admit overnight for serial cardiac troponins and consideration of echocardiogram. Case discussed with Dr. Petit who will admit the patient. ECG Data Attestation: I personally reviewed and interpreted this ECG (s) as follows: Interpretation: Regular rhythm, rate of 100, the QRS is narrow, there is no ST segment elevation present, QTC 485 HPI General Mode of arrival: ambulatory. Date/Time Provider Initiated Documentation: 11/05/19 14:10. Limitations to Documentation: no limitations. Information obtained by: patient. History of Present Illness 59 year old M presents to the emergency department with the chief complaint of Intermittent shortness of breath, not taking Eliquis, history of PE, described as mild, and is localized to the chest. and it has been intermittent. No relieving factors improve symptom(s), No exacerbating factors reported . Patient notes denies chest pain, cough and fever/chills. Patient did receive the following treatments prior to arrival, none Related Data Home Medications Medication Instructions Recorded Confirmed Ensure High Protein 237 ml PO PRN 12/16/15 11/05/19 calcitriol 0.25 mcg PO DAILY #30 cap 12/29/16 11/05/19 calcium acetate(phosphat bind) 1,334 mg PO AC #180 cap 12/29/16 11/05/19 sodium bicarbonate 650 mg PO TID #60 tab 12/29/16 11/05/19 venlafaxine [Effexor XR] 150 mg PO DAILY 08/15/17 11/05/19 ferrous sulfate 325 mg PO DAILY tab 08/30/17 11/05/19 gabapentin 300 mg PO HS 02/21/18 11/05/19 tramadol 50 mg tablet 50 mg PO TID PRN #30 tab 08/05/19 11/05/19 Nephro-Hawa 0.8 mg PO DAILY 09/25/19 09/25/19 acetaminophen [Tylenol] 650 mg PO Q4H PRN 09/25/19 11/05/19 amlodipine [Norvasc] 10 mg PO DAILY 09/25/19 11/05/19 cholecalciferol (vitamin D3) 1,000 unit PO DAILY 09/25/19 11/05/19 clonazepam 0.5 mg PO TID 09/25/19 11/05/19 apixaban 2.5 mg tablet 2.5 mg PO BID #60 tab 10/31/19 Previous Rx's Medication Instructions Recorded calcitriol 0.25 mcg PO DAILY #30 cap 12/29/16 calcium acetate(phosphat bind) 1,334 mg PO AC #180 cap 12/29/16 sodium bicarbonate 650 mg PO TID #60 tab 12/29/16 ferrous sulfate 325 mg PO DAILY tab 08/30/17 tramadol 50 mg tablet 50 mg PO TID PRN #30 tab 08/05/19 apixaban 2.5 mg tablet 2.5 mg PO BID #60 tab 10/31/19 Allergies Allergy/AdvReac Type Severity Reaction Status Date / Time oxycodone Allergy Skin Rash Unverified 11/05/19 12:57 topiramate [From Topamax] AdvReac Severe put me Unverified 11/05/19 12:57 out, couldn't wake me up General Stated Complaint: Vascular AMY: 2 Review of Systems Narrative: 6 systems reviewed and otherwise negative. Sunday//Sunday dialysis, normal run yesterday. [facility] Medical History Agoraphobia Anxiety Cerumen impaction Chronic anemia Chronic anemia (Acute) Chronic pain 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, stage II Chronic ulcer of left foot CKD (chronic kidney disease), stage IV (Acute) Decubitus ulcer Decubitus ulcer of coccyx (Acute) Depression (emotion) Elevated TSH ESRD (end stage renal disease) on dialysis (Chronic) Essential hypertension (Acute) Hematuria (Acute) Hypogonadism in male (Acute) Neurogenic bladder Paraplegia Suicidal ideation Testosterone deficiency Surgical History Colostomy Hip debridement, with bone resection s/p right hip remova for bony infection (Inactive) Spinal Fusion Family History Mother Depression Diabetes Father Cancer Heart disease Social History Smoking/Tobacco Use Status: Current-Occasional Tobacco Type: cigarettes Quit status: not considering quitting Second Hand Exposure: Yes Alcohol Intake: former Drug use: Never Substance use type: does not use Caregiver/Support person: Yes Household members: spouse and friend(s) Housing: house Do you need help understanding health information?: Often Pets and animals: Yes Pets and animals: cat(s) and dog(s) Sexually active: No Do you think of yourself as: straight/heterosexual What is your relationship status?: How often do you talk on the phone with friends or family?: never How often do you get together with friends or relatives?: never How often do you attend confucianist or protestant services?: decline to answer Do you belong to any clubs or organized social groups?: no Panel score (0-1 are the most socially isolated patients): 1 Marcelle/Orthodox: Seventh Day Religious Special marcelle needs: No Seatbelt use: always Helmet use: No Drive intox or ride w/intox 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 Pleasant, well groomed, interactive. HEAD: Normocephalic, atraumatic ENT: Mucous membranes moist, oropharynx unremarkable, External ear exam unremarkable EYES: PERRL, EOMI NECK: Full ROM, no AYLIN, no menigismus CHEST/RESP: Right chest anterior catheter in place, nontender, clear to auscultation bilateral, no wheeze/rhonchi/rales CARDIOVASCULAR: RRR, no murmur, rub kevin. 2+ Rad pulse bilateral ABDOMEN: Soft, nontender, no mass. +Bowel sounds EXT: Muscular atrophy of the lower extremity bilaterally Neuro: Grossly normal neurologic exam, conversant, interactive. Psych: Speech fluent, thoughts congruent, affect normal Course Vital Signs Vital signs: Vital Signs Temperature 36.7 C 11/05/19 14:09 Pulse 103 H 11/05/19 14:09 Respiratory Rate 18 11/05/19 14:09 Blood Pressure 142/85 H 11/05/19 14:09 Pulse Oximetry 94 L 11/05/19 14:09 Temperature 36.7 C 11/05/19 14:09 Temperature Source Skin 11/05/19 14:09 Pulse 103 H 11/05/19 14:09 Respiratory Rate 18 11/05/19 14:09 Blood Pressure 142/85 H 11/05/19 14:09 Blood Pressure Position Sitting 11/05/19 14:09 Pulse Oximetry 94 L 11/05/19 14:09 Oxygen Delivery Method Room Air 11/05/19 14:09 Oxygen Flow Rate 0 11/05/19 14:09 Pain Level 5 11/05/19 14:09 Comment 11/05/19 14:09
[2019-11-05 15:14] LABS: Abs Immature Grans 0.01 k/cumm (0.0-0.09); Absolute Basophil Count 0.06 k/cumm (0.0-0.2); Absolute Eosinophil Count 0.53 k/cumm (0.0-0.7); Absolute Lymphocyte Count 1.93 k/cumm (1.2-3.4); Absolute Monocyte Count 0.76 k/cumm (0.11-0.7); Absolute Neutrophil Count 3.13 k/cumm (1.2-6.7); Basophils % 0.9; Eosinophils % 8.3; HCT 31.9 % (40.0-50.0); HGB 10.1 g/dL (13.5-17.5); Immature Grans % 0.2 %; Lymphocytes % 30.1; Mean Corp. HGB Concentration 31.7 g/dL (32.0-36.0); Mean Corpuscular Hemoglobin 27.2 pg (27.0-33.0); Mean Corpuscular Volume 85.8 fL (80-95); Mean Platelet Volume 10.2 fL (8.0-11.0); Monocytes % 11.8; Neutrophils % 48.7; Platelet Count 233 x1000/uL (130-400); RBC 3.72 m/cumm (4.50-6.00); RBC Distribution Width 18.5 % (11.8-14.1); White Blood Cell Count 6.42 k/cumm (4.4-10.8)
[2019-11-05 15:39] LABS: ALT 7 U/L (16-63); AST 33 U/L (15-37); Albumin 2.1 g/dL (3.4-5.0); Alkaline Phosphatase 186 U/L (46-116); Anion Gap 4.5 mmol/L (3-11); BUN 9 mg/dL (7-18); Bilirubin, Total 0.5 mg/dL (0.2-1.0); CO2 32.5 mmol/L (21.0-32.0); Chloride 98 mmol/L (98-107); Estimated GFR 18.76 (mL/min/1.73m2); Glucose 73 mg/dL (74-106); Potassium 4.7 mmol/L (3.5-5.1); Sodium 135 mmol/L (136-145); Total Protein 6.9 g/dL (6.4-8.2)
[2019-11-05 15:40] LABS: Troponin I 0.08 ng/Ml (<0.06)
[2019-11-05] MEDS: clonazePAM 0.5 MG TAB PO (17:52)
[2019-11-05] MEDS: traMADol 50 MG TAB PO (17:52)
--- NOTE | 2019-11-05 18:57 | HPE_ITS ---
Date of service: 11/05/19 Time of Service: 18:57 Assessment and Plan Assessment and plan (1) PRINCE (dyspnea on exertion): Status: Acute Assessment and plan: PRINCE: may well be recurrent PE given medication non- compliance. Since further diagnostics will not change management lead, and given no signs hemodynamic compromise, I think simple resumption of Eliquis is sufficient here. Will begin with usual loading dose given length of time off meds. The minimal increase in Troponin is of doubtful significance, but given that this is a change from baseline I think it reasonable to complete trending of enzymes and obtain ECHO, and it is conceivable that this represents an anginal equivalent. Would consider MPI. Pleural effusion also noted, but improved so this is of doubtful bearing on presentation, but again could indicate a degree of cardiomyopathy -- pending ECHO. Reviewed ADs, requests full code. History of Present Illness History of Present Illness Chief Complaint: SOB Narrative: 59 male with CRF on HD (last dialysis yesterday). h/o PE 3 months ago, started on Eliquis, stopped 2 months ago because he didn't know he was supposed to continue it'. Here with one month of PRINCE. No CP. ASlso reports orthopnea but then says this resolves as long as he continues supine. At any rate w/u inER of note for CXR shoing small bilateral pleural effusions (improved from baseline), normal EKG, O2 sat 93-94%, troponin #1 of 0.08, #2 of 0.10 (baslien is <0,05). Due to change in troponin I was asked to admit. Note that no CTA was performed in ER due to fact that this would not change management lead as well as out of concern regarding renal function. Review of Systems All systems reviewed & are unremarkable except as noted in HPI and below PFSH Medical History Agoraphobia Anxiety Cerumen impaction Chronic anemia Chronic anemia (Acute) Chronic pain 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, stage II Chronic ulcer of left foot CKD (chronic kidney disease), stage IV (Acute) Decubitus ulcer Decubitus ulcer of coccyx (Acute) Depression (emotion) Elevated TSH ESRD (end stage renal disease) on dialysis (Chronic) Essential hypertension (Acute) Hematuria (Acute) Hypogonadism in male (Acute) Neurogenic bladder Paraplegia Suicidal ideation Testosterone deficiency Surgical History Colostomy Hip debridement, with bone resection s/p right hip remova for bony infection (Inactive) Spinal Fusion Family History Mother Depression Diabetes Father Cancer Heart disease Social History Smoking/Tobacco Use Status: Current-Occasional Tobacco Type: cigarettes Quit status: not considering quitting Second Hand Exposure: Yes Alcohol Intake: former Drug use: Never Substance use type: does not use Caregiver/Support person: Yes Household members: spouse and friend(s) Housing: house Do you need help understanding health information?: Often Pets and animals: Yes Pets and animals: cat(s) and dog(s) Sexually active: No Do you think of yourself as: straight/heterosexual What is your relationship status?: How often do you talk on the phone with friends or family?: never How often do you get together with friends or relatives?: never How often do you attend catholic or sikhism services?: decline to answer Do you belong to any clubs or organized social groups?: no Panel score (0-1 are the most socially isolated patients): 1 Marcelle/Islam: Seventh Day Lutheran Special marcelle needs: No Seatbelt use: always Helmet use: No Drive intox or ride w/intox waste collection driver: No Do you feel safe at home: Yes Do you feel safe in your relationship?: Yes Meds Home Medications and Allergies Home Medications Medication Instructions Recorded Confirmed Type Ensure High Protein 237 ml PO PRN 12/16/15 11/05/19 History calcitriol 0.25 mcg PO DAILY #30 cap 12/29/16 11/05/19 Rx calcium acetate(phosphat bind) 1,334 mg PO AC #180 cap 12/29/16 11/05/19 Rx sodium bicarbonate 650 mg PO TID #60 tab 12/29/16 11/05/19 Rx venlafaxine [Effexor XR] 150 mg PO DAILY 08/15/17 11/05/19 History ferrous sulfate 325 mg PO DAILY tab 08/30/17 11/05/19 Rx gabapentin 300 mg PO HS 02/21/18 11/05/19 History tramadol 50 mg tablet 50 mg PO TID PRN #30 tab 08/05/19 11/05/19 Rx Nephro-Hawa 0.8 mg PO DAILY 09/25/19 09/25/19 History acetaminophen [Tylenol] 650 mg PO Q4H PRN 09/25/19 11/05/19 History amlodipine [Norvasc] 10 mg PO DAILY 09/25/19 11/05/19 History cholecalciferol (vitamin D3) 1,000 unit PO DAILY 09/25/19 11/05/19 History clonazepam 0.5 mg PO TID 09/25/19 11/05/19 History apixaban 2.5 mg tablet 2.5 mg PO BID #60 tab 10/31/19 Rx Allergies Allergy/AdvReac Type Severity Reaction Status Date / Time oxycodone Allergy Skin Rash Unverified 11/05/19 12:57 topiramate [From Topamax] AdvReac Severe put me Unverified 11/05/19 12:57 out, couldn't wake me up Exam Narrative Exam Narrative: 147/79, 102, 24, 37.1. O2 sat 94% RA. HEENT atraumatic; neck supple; lungs bibasilar rales right >> left; heart normal PMI, no RV heavee, RRR w/o MRG; abdomen soft NT; extremities trace edema LEs; neuro Ox3, baseline paraplegia Results Labs Result diagrams: 11/05/19 15:05 11/05/19 15:05 Labs: Laboratory Results - last 24 hr 11/05/19 11/05/19 11/05/19 15:05 15:05 17:32 WBC 6.42 RBC 3.72 L Hgb 10.1 L Hct 31.9 L MCV 85.8 MCH 27.2 MCHC 31.7 L RDW 18.5 H Plt Count 233 MPV 10.2 Immature Gran % 0.2 Neutrophils % 48.7 Lymphocytes % 30.1 Monocytes % 11.8 Eosinophils % 8.3 Basophils % 0.9 Absolute Neutrophils 3.13 Absolute Lymphocytes 1.93 Absolute Monocytes 0.76 H Absolute Eosinophils 0.53 Absolute Basophils 0.06 Sodium 135 L Potassium 4.7 Chloride 98 Carbon Dioxide 32.5 H Anion Gap 4.5 BUN 9 Creatinine 3.40 H Estimated GFR/1.73 m2 18.76 Glucose 73 L Calcium 8.0 L Magnesium 2.0 Total Bilirubin 0.5 AST 33 ALT 7 L Alkaline Phosphatase 186 H Troponin I 0.08 H* 0.10 H* Total Protein 6.9 Albumin 2.1 L Last Vital Signs Temp 37.1 C 11/05/19 17:53 Pulse 102 H 11/05/19 17:53 Resp 24 11/05/19 18:48 BP 147/79 H 11/05/19 17:53 Pulse Ox 93 L 11/05/19 17:53
[2019-11-05 21:05] LABS: Troponin I 0.11 ng/Ml (<0.06)
[2019-11-05] MEDS: Apixaban 5 MG TAB 10 MG PO (21:25)
[2019-11-05] MEDS: Gabapentin 300 MG CAP PO (21:25)
[2019-11-05] MEDS: Sodium Bicarbonate 650 MG TAB PO (21:25)
[2019-11-05] MEDS: clonazePAM 1 MG TAB 0.5 MG PO (21:27)
[2019-11-06 07:21] LABS: Troponin I 0.13 ng/Ml (<0.06)
[2019-11-06 07:54] VITALS: BP 162/98; PULSE 99; RESP 16; TEMP 36.8; O2SAT 96
[2019-11-06] MEDS: clonazePAM 1 MG TAB 0.5 MG PO ×3 (08:41→19:53)
[2019-11-06] MEDS: Calcitriol 0.25 MCG CAP PO (08:41)
[2019-11-06] MEDS: amLODIPine 5 MG TAB 10 MG PO (08:41)
[2019-11-06] MEDS: Cholecalciferol (Vitamin D3) 1,000 UNIT TAB 1000 UNITS PO (08:41)
[2019-11-06] MEDS: Venlafaxine 150 MG CAPCR PO (08:42)
[2019-11-06] MEDS: Ferrous Sulfate 325 MG TAB PO (08:42)
[2019-11-06] MEDS: Sodium Bicarbonate 650 MG TAB PO ×3 (08:42→19:52)
[2019-11-06] MEDS: Apixaban 5 MG TAB 10 MG PO ×2 (08:42→19:53)
--- NOTE | 2019-11-06 09:14 | PGE_ITS ---
Date of Service Date of service: 11/06/19 Time of Service: 09:14 Assessment and Plan Assessment and plan (1) Dyspnea: Status: Acute Assessment and plan: Not currently short of breath at rest and not having hypoxemia. However symptoms are concerning for possible recurrent pulmonary emboli versus ACS. I do not see any acute injury pattern on his current EKG this morning. His troponins are rising although not quite at the threshold for an acute VA. I am repeating his troponin later this morning but hopefully the patient will be transferred out to a tertiary care center either [facility] or [facility]. Patient has been restarted on his apixaban for his pulmonary emboli Qualifiers: Dyspnea type: shortness of breath Qualified Code(s): R06.02 - Shortness of breath (2) ESRD (end stage renal disease) on dialysis: Status: Chronic Assessment and plan: Patient needs transfer to a dialysis center today. (3) Decubitus ulcer of coccyx: Status: Acute Assessment and plan: This is a chronic condition and currently not being actively treated. He has no fever and no leukocytosis to suggest an acute infection. Patient is chronically colonized with gram-negative rods in the past Qualifiers: Pressure injury stage: unstageable Qualified Code(s): L89.150 - Pressure ulcer of sacral region, unstageable (4) Anemia in chronic kidney disease: Status: Acute Assessment and plan: Hemoglobin is currently stable and actually improved over his previous level in August. Qualifiers: Chronic kidney disease stage: on chronic dialysis Qualified Code(s): N18.6 - End stage renal disease; D63.1 - Anemia in chronic kidney disease; Z99.2 - Dependence on renal dialysis (5) Pulmonary embolus: Status: Suspected Assessment and plan: Patient has not had a definitive study to prove a recurrent pulmonary embolus. The presumption is based on his presentation of dyspnea and chest discomfort and the lack of anticoagulation for the last 2 months. Qualifiers: Acute cor pulmonale presence: unspecified Chronicity: unspecified Pulmonary embolism type: unspecified Qualified Code(s): I26.99 - Other pulmonary embolism without acute cor pulmonale (6) Essential hypertension: Status: Acute Subjective Subjective Interval history since last seen: 59-year-old male paraplegic who has end-stage renal disease on hemodialysis every Sunday//Sunday his last dialysis was 2 days ago and has a history of recurrent pulmonary emboli had presented to his primary care provider's office yesterday for follow-up. He had told his PCP that he been having intermittent dyspnea for the last 2 to 3 weeks along with some occasional chest tightness. At the time of admission he had no chest pain or pressure. He admitted to his PCP that he quit taking his Eliquis about 2 months ago. When I questioned the patient why he quit taking the Eliquis he said he ran out and did not think to get it refilled. 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 He has a colostomy as well as a suprapubic catheter. His hemodialysis is performed through a right infraclavicular port. Work-up in the emergency department included routine labs that demonstrated elevated troponin of 0.08 and is continued to rise to 0.13. His previous troponin level was less than 0.05 as of September 25, 2019. EKG is demonstrated sinus rhythm with sinus tachycardia with flattened T waves across the anterior precordial leads which appear to be unchanged. There is no rightward axis change no evidence of right ventricular strain. CBC demonstrated a stable anemia with a hemoglobin of 10.7 g which is actually higher than his previous value of 8.7 g on September 26, 2019. CMP last night demonstrated creatinine 3.4 with a BUN of 9 and a potassium level of 4.7. Currently patient is free of any chest pain denies any dyspnea. He is hypertensive this morning with a blood pressure 162/98 and his heart rate is 98 sinus rhythm. Pulse oximetry 96% on room air. He is afebrile. I spoke with [facility] to the transfer center requesting transfer for multiple reasons including #1. End-stage renal disease requiring hemodialysis today which we cannot provide for the patient, #2 evaluation of dyspnea and chest pain with indeterminate troponin levels patient needs to be ruled out for acute coronary syndrome versus recurrent pulmonary emboli for this needs multi specialty evaluation include cardiology and pulmonary and renal service. Exam Narrative Exam Narrative: Alert and oriented person place time circumstance in no acute distress respirations nonlabored. Neck nontender no JVD. Hemodialysis catheter in the right infraclavicular space does not appear to be indurated there is no erythema no tenderness. Lungs are clear to auscultation anteriorly posteriorly has some bibasilar rales. Heart is regular rate and rhythm without murmur rub or gallop. Colostomy is intact no tenderness or erythema around the colostomy site. Stool is light brown in coloration. Supra pubic catheter is in place draining scant amount of cloudy urine Patient has a malodorous smell probably emanating from his sacral decubiti. Nevertheless he remains afebrile and this is a chronic condition for him and therefore is not being actively treated with antibiotics. Objective Objective Clinical Data: Abnormal lab results 11/05/19 11/05/19 11/05/19 Range/Units 15:05 15:05 17:32 RBC 3.72 L (4.50-6.00) m/cumm Hgb 10.1 L (13.5-17.5) g/dL Hct 31.9 L (40.0-50.0) % MCHC 31.7 L (32.0-36.0) g/dL RDW 18.5 H (11.8-14.1) % Absolute Monocytes 0.76 H (0.11-0.7) k/cumm Sodium 135 L (136-145) mmol/L Carbon Dioxide 32.5 H (21.0-32.0) mmol/L Creatinine 3.40 H (0.70-1.30) mg/dL Glucose 73 L (74-106) mg/dL Calcium 8.0 L (8.5-10.1) mg/dL ALT 7 L (16-63) U/L Alkaline Phosphatase 186 H (46-116) U/L Troponin I 0.08 H* 0.10 H* (<0.06) ng/Ml Albumin 2.1 L (3.4-5.0) g/dL 11/05/19 11/06/19 Range/Units 20:35 06:30 RBC (4.50-6.00) m/cumm Hgb (13.5-17.5) g/dL Hct (40.0-50.0) % MCHC (32.0-36.0) g/dL RDW (11.8-14.1) % Absolute Monocytes (0.11-0.7) k/cumm Sodium (136-145) mmol/L Carbon Dioxide (21.0-32.0) mmol/L Creatinine (0.70-1.30) mg/dL Glucose (74-106) mg/dL Calcium (8.5-10.1) mg/dL ALT (16-63) U/L Alkaline Phosphatase (46-116) U/L Troponin I 0.11 H* 0.13 H* (<0.06) ng/Ml Albumin (3.4-5.0) g/dL Vital Signs Temperature 36.8 C 11/06/19 07:54 Temperature Source Tympanic 11/06/19 07:54 Pulse 99 H 11/06/19 07:54 Pulse Rhythm Regular 11/06/19 00:33 Pulse 102 H 11/05/19 20:10 Respiratory Rate 16 11/06/19 07:54 Respiratory Effort Non-Labored 11/06/19 00:33 Respiratory Depth Normal 11/06/19 00:33 Respiratory Pattern Normal 11/06/19 00:33 Blood Pressure 162/98 H 11/06/19 07:54 Blood Pressure Mean 95 11/05/19 17:55 Blood Pressure Position Sitting 11/05/19 14:09 Pulse Oximetry 96 11/06/19 07:54 Oxygen Delivery Method Room Air 11/06/19 07:54 Oxygen Flow Rate 0 11/06/19 07:54 Pain Level 0 11/06/19 07:54 Comment 11/05/19 21:01 Intake & Output 11/05/19 11/05/19 11/06/19 11:59 23:59 11:59 Weight 68.039 kg Other: Urine Color Brown Urine Appearance Cloudy Comment minimal output due to dialysis Laboratory Results WBC 6.42 k/cumm (4.4-10.8) 11/05/19 15:05 RBC 3.72 m/cumm (4.50-6.00) L 11/05/19 15:05 Hgb 10.1 g/dL (13.5-17.5) L 11/05/19 15:05 Hct 31.9 % (40.0-50.0) L 11/05/19 15:05 MCV 85.8 fL (80-95) 11/05/19 15:05 MCH 27.2 pg (27.0-33.0) 11/05/19 15:05 MCHC 31.7 g/dL (32.0-36.0) L 11/05/19 15:05 RDW 18.5 % (11.8-14.1) H 11/05/19 15:05 Plt Count 233 x1000/uL (130-400) 11/05/19 15:05 MPV 10.2 fL (8.0-11.0) 11/05/19 15:05 Immature Gran % 0.2 % 11/05/19 15:05 Neutrophils % 48.7 11/05/19 15:05 Lymphocytes % 30.1 11/05/19 15:05 Monocytes % 11.8 11/05/19 15:05 Eosinophils % 8.3 11/05/19 15:05 Basophils % 0.9 11/05/19 15:05 Absolute Neutrophils 3.13 k/cumm (1.2-6.7) 11/05/19 15:05 Absolute Lymphocytes 1.93 k/cumm (1.2-3.4) 11/05/19 15:05 Absolute Monocytes 0.76 k/cumm (0.11-0.7) H 11/05/19 15:05 Absolute Eosinophils 0.53 k/cumm (0.0-0.7) 11/05/19 15:05 Absolute Basophils 0.06 k/cumm (0.0-0.2) 11/05/19 15:05 Sodium 135 mmol/L (136-145) L 11/05/19 15:05 Potassium 4.7 mmol/L (3.5-5.1) 11/05/19 15:05 Chloride 98 mmol/L (98-107) 11/05/19 15:05 Carbon Dioxide 32.5 mmol/L (21.0-32.0) H 11/05/19 15:05 Anion Gap 4.5 mmol/L (3-11) 11/05/19 15:05 BUN 9 mg/dL (7-18) 11/05/19 15:05 Creatinine 3.40 mg/dL (0.70-1.30) H 11/05/19 15:05 Estimated GFR/1.73 m2 18.76 (mL/min/1.73m2) 11/05/19 15:05 Glucose 73 mg/dL (74-106) L 11/05/19 15:05 Calcium 8.0 mg/dL (8.5-10.1) L 11/05/19 15:05 Magnesium 2.0 mg/dL (1.8-2.4) 11/05/19 15:05 Total Bilirubin 0.5 mg/dL (0.2-1.0) 11/05/19 15:05 AST 33 U/L (15-37) 11/05/19 15:05 ALT 7 U/L (16-63) L 11/05/19 15:05 Alkaline Phosphatase 186 U/L (46-116) H 11/05/19 15:05 Troponin I 0.13 ng/Ml (<0.06) H* 11/06/19 06:30 Total Protein 6.9 g/dL (6.4-8.2) 11/05/19 15:05 Albumin 2.1 g/dL (3.4-5.0) L 11/05/19 15:05
[2019-11-06 09:41] LABS: BUN 13 mg/dL (7-18); Calcium 8.2 mg/dL (8.5-10.1); Chloride 97 mmol/L (98-107); Estimated GFR 13.65 (mL/min/1.73m2); Glucose 78 mg/dL (74-106); Potassium 3.6 mmol/L (3.5-5.1); Sodium 137 mmol/L (136-145)
[2019-11-06 09:44] LABS: CREATININE 4.48 mg/dL (0.70-1.30)
--- NOTE | 2019-11-06 10:00 | DI.US_ITS ---
APPROVED REPORT EXAM: Comprehensive 2D, Doppler, and color-flow Echocardiogram Patient Location: In-Patient Dopeman: Tiff Amezcua RDCS (AE) Indications: SOB Conclusion Left Ventricle : Left ventricle is mildly dilated. Left ventricular systolic function is severely de creased. There is normal left ventricular wall thickness. The posterior wall thickness is normal. T he septum is normal. There is global hypokinesis of the left ventricle. The diastolic function is abn ormal. LVEF is 15-19%. Right Ventricle : Right ventricle is not well visualized. Atria : The left atrium size is normal. The right atrium size is normal. Aortic Valve : Aortic valve is probably trileaflet. No aortic regurgitation is present. There is no a ortic valvular stenosis. Mitral Valve : There is mitral annular calcification. Mild mitral regurgitation. No evidence of dallin l valve stenosis. Great Vessels : IVC is normal in size and collapses >50% with inspiration. There is not enough tricu spid regurgitation to estimate RVSP. Large left pleural effusion. There is no pericardial effusion. There is no prior echocardiogram available for comparison. Wall motion Left Ventricle Left ventricle is mildly dilated. Left ventricular systolic function is severely decreased. There is normal left ventricular wall thickness. The posterior wall thickness is normal. The septum is normal. There is global hypokinesis of the left ventricle. The diastolic function is abnormal. LVEF is 15-19 %. Right Ventricle Right ventricle is not well visualized. Atria The left atrium size is normal. The right atrium size is normal. Aortic Valve Aortic valve is probably trileaflet. There is no aortic valvular stenosis. No aortic regurgitation is present. Mitral Valve There is mitral annular calcification. No evidence of mitral valve stenosis. Mild mitral regurgitatio n. Tricuspid Valve The tricuspid valve is normal in structure. There is no tricuspid valve stenosis. Pulmonic Valve Pulmonic valve is not well visualized. There is no pulmonic valvular stenosis. Great Vessels The aortic root is normal in size. The aortic root size is normal. The ascending aorta is normal in s ize. IVC is normal in size and collapses >50% with inspiration. There is not enough tricuspid regurgi tation to estimate RVSP. Pericardium There is no pericardial effusion. Large left pleural effusion. 2D Dimensions IVSD d PLAX 0.98 cm M: 0.6-1.2 LV Vol A2C d MOD 171.5 mL LVPW d PLAX 1.00 cm M: 0.6 - 1.2 LV Vol A4C d MOD 126.6 mL LVID d PLAX 5.22 cm M: 4.2 - 5.8 LV EF A4C MOD 13.4 % LVDs 4.85 cm M: 2.5 - 4.0 LV EF A2C MOD 18.3 % Ao Root d 3.65 cm M: 3.1 - 3.7 LV EF Biplane MOD 17.0 % LV EF Teichholz 13.6 % LVEF (Paige's) 16.98 % M: 52 - 72 LV Volume 112.51 mL M: 62 - 150 LV Volume Index 52.33 mL/m2 M: 34 - 74 LV Vol Biplane MOD 153.5 mL FS 6.10 % Aortic Valve LVOT Area 2.95 cm2 AoV Area Vmax 2.38 cm2 LVOT Vmax 0.77 m/s AoV Area/ BSA (Vmax) 1.11 cm2/m2 LVOT Mean Skyler. 0.51 m/s KRIS Mean Skyler. 2.14 cm2 LVOT Peak Grad 2.4 mmHg KRIS Mean Skyler. Index 1.00 cm2/m2 LVOT Mean Grad 1.2 mmHg LVOT VTI 0.122 m LVOT Diam s 1.90 cm (M/F) 1.5-2.5 AoV Vmax 0.96 (0.5-1.3 m/s) Velocity Ratio 0.80 AoV Mean Skyler. 0.71 m/s AoV Peak Grad 3.7 mmHg LVOT SV 35.97 mL AoV Mean Grad 2.2 (<5 mmHg) AoV VTI 0.145 (0.18-0.25 m) AoV Area VTI 2.47 (2.5-4.5 cm2) AoV Area/ BSA (VTI) 1.15 cm/m2 Mitral Valve MR Vmax 4.47 m/s MR VTI 1.195 m MR Peak Grad 80.0 mmHg MR Mean Grad 61.2 mmHg Pulmonary Valve PV Vmax 0.67 (0.5-1.5 m/s) RVOT Peak Gr. 1.02 mmHg PV Peak Grad 1.8 mmHg RVOT Mean Gr. 0.45 mmHg PV Mean Grad 1.0 mmHg RVOT VTI 0.073 m PV VTI 0.113 m RVOT Vmax 0.51 m/s
[2019-11-06 11:19] LABS: Troponin I 0.13 ng/Ml (<0.06)
[2019-11-06] MEDS: Carvedilol 6.25 MG TAB 3.125 MG PO (14:21)
[2019-11-06 14:25] VITALS: BP 160/84; PULSE 94; RESP 19; TEMP 37.1; O2SAT 92
[2019-11-06 14:30] VITALS: O2SAT 92
[2019-11-06 14:38] LABS: Troponin I 0.12 ng/Ml (<0.06)
--- NOTE | 2019-11-06 16:35 | PDOC.CMPRO ---
Care Management Progress Note Timmy needs to transfer to tertiary care as he requires dialysis which is scheduled for today. MD has requested transfer, CM continues to follow.
--- NOTE | 2019-11-06 16:42 | WOUNDCONS ---
Wound Initial Evaluation Narrative: Patient is 59 yom, seen here for dyspnea on exertion. H&P, and all other labs and reports affecting the wound were reviewed. - Wound Left Posterior Lateral Pelvis Wound Type: Pressure Ulcer Pressure Ulcer Stage: IV Wound General Appearance: Draining, Muscle Visible, Tunneling Wound Bed Greatest Portion: Pale Blue Sky Wound Bed Lesser Portion: Blanched/Dull Wound Surrounding Tissue Appearance: Dark Red, Edges Rolled, Tunnelling Percent of Wound Bed Granulated/Red: 0 (chronic) Percent of Wound Bed Slough/Yellow: 0 Percent of Wound Bed Eschar/Black: 0 Wound Length: 0 in (4.3 cm) Wound Width: 0 in (3.0 cm) Wound Depth: 0 in (2 cm) Wound Drainage Amount: Minimal Wound Drainage Odor: Strong, Sweet Wound Drainage Description: Bloody Wound Topical Solution/Irrigant: Saline Irrigant Wound Debridement Method: Mechanical Wound Debridement Result: Healthy Tissue Revealed (pink devitalized tissue exposed) Wound Debridement Amount of Tissue Removed: None Lumbar/Sacral Wound Type: Pressure Ulcer Pressure Ulcer Stage: IV Wound General Appearance: Draining, Unapproximated, Tunneling Wound Bed Greatest Portion: Pale Blue Sky Wound Bed Lesser Portion: Blanched/Dull Wound Surrounding Tissue Appearance: Dark Red, Indurated, Tunnelling (tunneling around the whole wound 2.2 cm) Percent of Wound Bed Granulated/Red: 0 (100% pale non granulating) Percent of Wound Bed Slough/Yellow: 0 Percent of Wound Bed Eschar/Black: 0 Wound Length: 0 in (1.6 cm) Wound Width: 0 in (3.6 cm) Wound Depth: 0 in (1.2 cm) Wound Drainage Amount: Minimal Wound Drainage Odor: Strong, Sweet Wound Drainage Description: Brown Wound Topical Solution/Irrigant: Saline Irrigant Wound Debridement Method: Mechanical Wound Debridement Result: Healthy Tissue Revealed (pink non granulating tissue revealed) Wound Debridement Amount of Tissue Removed: None Right Posterior Lateral Pelvis Wound Type: Pressure Ulcer Pressure Ulcer Stage: III Wound General Appearance: Clean/Dry Wound Bed Greatest Portion: Dusky Red Wound Bed Lesser Portion: Pale Blue Sky Wound Surrounding Tissue Appearance: Dark Red Percent of Wound Bed Granulated/Red: 95 (5% non granulating) Percent of Wound Bed Slough/Yellow: 0 Percent of Wound Bed Eschar/Black: 0 Wound Length: 0 in (1.7 cm) Wound Width: 0 in (1.8 cm) Wound Depth: 0 in (1.0 cm) Wound Drainage Amount: None Wound Drainage Odor: None/Absent Wound Drainage Description: No drainage Wound Topical Solution/Irrigant: Saline Irrigant Wound Debridement Method: Mechanical Wound Debridement Result: Healthy Tissue Revealed Wound Debridement Amount of Tissue Removed: None Right Posterior Knee Wound Type: Pressure Ulcer (closed over PI) Pressure Ulcer Stage: Eschar/Unstageable Wound General Appearance: Well Approximated, Healing Well Wound Bed Greatest Portion: Red (Granulation) Wound Bed Lesser Portion: Shiny Percent of Wound Bed Granulated/Red: 95 (5% scar tissue) Wound Length: 0 in (4.5 cm) Wound Width: 0 in (8.5 cm) Wound Depth: 0 in ( <0.1 cm) Wound Drainage Amount: None Wound Drainage Odor: None/Absent Wound Drainage Description: No drainage Wound Topical Solution/Irrigant: Saline Irrigant Wound Debridement Method: Mechanical Wound Debridement Result: Healthy Tissue Revealed Wound Debridement Amount of Tissue Removed: None - Circulation, Sensation, Motion Peripheral Pulse Strength: Normal Capillary Refill: Less than 3 seconds Sensation Description: Numbness (patient is a paraplegic with limited senation in the area of the wound) Skin Temperature: Cool Skin Color: Vito - DULCE Comment:: dulce not indicated - Pain Pain Level: 0 (limited sensation) Stage 4 PI to the left ischial tuberocity, tunneling measuring 2.6 cm noted between 5 and 7 o'clock - Treatment/Dressing Change Topicals/Ointments: None Cleanse With: Saline Dressing Types: Alginate ([place]), Mepilex w/Border - Recomendation Recomendation:: Wounds to the left ischial tuberocity and sacral. Cleanse with normal saline, pat dry. pack wound with Aquacell. Apply skin prep to the joy wound skin. Cover with a Mepilex border. Change Sunday, Sunday, Sunday, or PRN if soiled or dislodged. Measure weekly. Right Ischial Tuberocity, and posterior right knee. Cleanse with Normal Saline, then pat dry. Apply skin prep to the joy wound skin. Cover with Mepilex border. Change every 7 days or prn of soiled or dislodged. Measure weekly. Physcian/Nurse Practioner Notified: Yes (Dr. Almeida) Treatment Time - Time Total Time Spent with Patient: 1 hour - Patient Will be Seen Weekly Treatment: 3x/wk - For: For:: 1 week (then measure and follow up.)
[2019-11-06] MEDS: Normal Saline Flush 10 ML SYR IVP (18:28)
[2019-11-06] MEDS: Furosemide 100 MG/10 ML VIAL IVP (18:28)
[2019-11-06] MEDS: Carvedilol 3.125 MG TAB PO (19:52)
[2019-11-06 19:55] VITALS: BP 148/83; PULSE 88
[2019-11-06] MEDS: Gabapentin 300 MG CAP PO (22:21)
[2019-11-06 23:53] VITALS: BP 132/74; PULSE 82; RESP 19; TEMP 36.4; O2SAT 90
[2019-11-07 07:52] LABS: Anion Gap 5.9 mmol/L (3-11); BUN 17 mg/dL (7-18); CO2 32.1 mmol/L (21.0-32.0); Calcium 8.3 mg/dL (8.5-10.1); Chloride 98 mmol/L (98-107); Estimated GFR 11.02 (mL/min/1.73m2); Glucose 74 mg/dL (74-106); Potassium 3.2 mmol/L (3.5-5.1); Sodium 136 mmol/L (136-145)
[2019-11-07 07:54] LABS: CREATININE 5.39 mg/dL (0.70-1.30); Troponin I 0.09 ng/Ml (<0.06)
[2019-11-07 08:49] VITALS: O2SAT 91
[2019-11-07 08:51] VITALS: BP 152/91; PULSE 90; RESP 20; TEMP 36.9; O2SAT 92; O2SAT 93
[2019-11-07] MEDS: amLODIPine 5 MG TAB 10 MG PO (08:55)
[2019-11-07] MEDS: Calcitriol 0.25 MCG CAP PO (08:55)
[2019-11-07] MEDS: clonazePAM 1 MG TAB 0.5 MG PO (08:56)
[2019-11-07] MEDS: Sodium Bicarbonate 650 MG TAB PO (08:56)
[2019-11-07] MEDS: Carvedilol 3.125 MG TAB PO (08:56)
[2019-11-07] MEDS: Apixaban 5 MG TAB 10 MG PO (08:56)
[2019-11-07] MEDS: Venlafaxine 150 MG CAPCR PO (08:56)
[2019-11-07] MEDS: Ferrous Sulfate 325 MG TAB PO (08:56)
[2019-11-07] MEDS: Cholecalciferol (Vitamin D3) 1,000 UNIT TAB 1000 UNITS PO (08:56)
--- NOTE | 2019-11-07 08:58 | PGE_ITS ---
Date of Service Date of service: 11/07/19 Time of Service: 08:59 Assessment and Plan Assessment and plan (1) Cardiomyopathy: Status: Suspected Assessment and plan: Given his history of chronic kidney disease essential hypertension and now with new onset elevated troponin levels and documented LV dysfunction by [id number] ultrasound suspicion is raised for ischemic cardiom yopathy. I did not see any regional wall motion abnormalities in my [id number] stay but he had generalized LV dysfunction. Patient will need transfer to tertiary care center for further work-up by cardiology. Qualifiers: Cardiomyopathy type: ischemic Qualified Code(s): I25.5 - Ischemic cardiomyopathy (2) Elevated troponin I level: Status: Acute Assessment and plan: Troponin levels peaked at 0.13 and are now down to 0.09. While these did not meet the threshold for acute myocardial infarction and his EKG did not exhibit evidence of an acute injury nevertheless he had normal troponin levels on September 25, 2019 in which his troponin I level was less than 0.05 and furthermore he is exhibiting global LV dysfunction on his [id number] ultrasound. Therefore he requires a work-up for ischemic heart disease. (3) ESRD (end stage renal disease) on dialysis: Status: Chronic Assessment and plan: Patient needs transfer to a tertiary care center today to receive hemodialysis in order to manage his fluid status. (4) Pulmonary embolus: Status: Suspected Assessment and plan: Patient has a history of small pulmonary emboli. He had gone off his Eliquis for last 2 months for reasons that are unclear and began having symptoms of dyspnea and intermittent chest tightness about 3 weeks ago. We have not been able to perform a study to rule in or rule out a PE however he has been restarted on his Eliquis at the loading dose of 10 mg twice a day. Qualifiers: Pulmonary embolism type: unspecified Chronicity: unspecified Acute cor pulmonale presence: unspecified Qualified Code(s): I26.99 - Other pulmonary embolism without acute cor pulmonale (5) Anemia in chronic kidney disease: Status: Acute Assessment and plan: So far his anemia has remained stable current hemoglobin is 10 g. He has had no evidence of bleeding. Qualifiers: Chronic kidney disease stage: on chronic dialysis Qualified Code(s): N18.6 - End stage renal disease; D63.1 - Anemia in chronic kidney disease; Z99.2 - Dependence on renal dialysis (6) Decubitus ulcer of coccyx: Status: Acute Assessment and plan: Wound care nurse was consulted yesterday and is packing his wounds with alginate is superficial wounds being covered with Mepilex. At this point is not exhibiting evidence of acute infection. Qualifiers: Pressure injury stage: unstageable Qualified Code(s): L89.150 - Pressure ulcer of sacral region, unstageable Subjective Subjective Interval history since last seen: Patient developed hypoxemia yesterday and now requires supplemental oxygen (nasal cannula @ 2 lpm). He denies any chest pain or pressure or dyspnea this a.m. He did not respond to lasix 100 mg IVP given last night. His troponin levels are declining and are now down to 0.09. His BMP demonstrates potassium of 3.2, creatinine of 5.39. At this time the patient needs transfer to a tertiary center for hemodialysis to manage his volume overload and he needs consultation w/ cardiology and pulmonary as well as nephrology. He needs evaluation for cause of his cardiomyopathy and his hx of P.E. Exam Narrative Exam Narrative: Alert and oriented person place time circumstance sitting up in bed eating his breakfast. Lungs clear anteriorly upper lung maciel but posteriorly has markedly diminished breath sounds right more so than the left. No rhonchi or wheezing. Heart is regular rate and rhythm no appreciable murmur Abdomen soft and nontender. Colostomy is draining light brown soft stool. Suprapubic catheter has no significant output Objective Objective Clinical Data: Abnormal lab results 11/06/19 11/06/19 11/06/19 Range/Units 06:30 10:56 14:10 Potassium (3.5-5.1) mmol/L Chloride 97 L (98-107) mmol/L Carbon Dioxide (21.0-32.0) mmol/L Creatinine 4.48 H* D (0.70-1.30) mg/dL Calcium 8.2 L (8.5-10.1) mg/dL Troponin I 0.13 H* 0.13 H* 0.12 H* (<0.06) ng/Ml 11/07/19 Range/Units 06:20 Potassium 3.2 L (3.5-5.1) mmol/L Chloride (98-107) mmol/L Carbon Dioxide 32.1 H (21.0-32.0) mmol/L Creatinine 5.39 H* D (0.70-1.30) mg/dL Calcium 8.3 L (8.5-10.1) mg/dL Troponin I 0.09 H* (<0.06) ng/Ml Vital Signs Temperature 36.9 C 11/07/19 08:51 Temperature Source Tympanic 11/07/19 08:51 Pulse 90 11/07/19 08:51 Pulse Rhythm Regular 11/07/19 01:17 Pulse 102 H 11/05/19 20:10 Respiratory Rate 20 11/07/19 08:51 Respiratory Effort Non-Labored 11/07/19 01:17 Respiratory Depth Normal 11/07/19 01:17 Respiratory Pattern Normal 11/07/19 01:17 Blood Pressure 152/91 H 11/07/19 08:51 Blood Pressure Mean 95 11/05/19 17:55 Blood Pressure Position Sitting 11/05/19 14:09 Pulse Oximetry 92 L 11/07/19 08:51 Oxygen Delivery Method Room Air 11/07/19 08:51 Oxygen Flow Rate 0 11/07/19 08:51 Pain Level 0 11/07/19 08:51 Comment 11/05/19 21:01 Intake & Output 11/06/19 11/06/19 11/07/19 11:59 23:59 11:59 Intake Total 120 / 120 Output Total 150 / 150 Balance -30 / -30 Intake: Oral 120 / 120 Output: Stool 150 / 150 Other: Urine Color Brown Brown Urine Appearance Cloudy Cloudy Cloudy Comment minimal output due to dialysis minimal output Laboratory Results WBC 6.42 k/cumm (4.4-10.8) 11/05/19 15:05 RBC 3.72 m/cumm (4.50-6.00) L 11/05/19 15:05 Hgb 10.1 g/dL (13.5-17.5) L 11/05/19 15:05 Hct 31.9 % (40.0-50.0) L 11/05/19 15:05 MCV 85.8 fL (80-95) 11/05/19 15:05 MCH 27.2 pg (27.0-33.0) 11/05/19 15:05 MCHC 31.7 g/dL (32.0-36.0) L 11/05/19 15:05 RDW 18.5 % (11.8-14.1) H 11/05/19 15:05 Plt Count 233 x1000/uL (130-400) 11/05/19 15:05 MPV 10.2 fL (8.0-11.0) 11/05/19 15:05 Immature Gran % 0.2 % 11/05/19 15:05 Neutrophils % 48.7 11/05/19 15:05 Lymphocytes % 30.1 11/05/19 15:05 Monocytes % 11.8 11/05/19 15:05 Eosinophils % 8.3 11/05/19 15:05 Basophils % 0.9 11/05/19 15:05 Absolute Neutrophils 3.13 k/cumm (1.2-6.7) 11/05/19 15:05 Absolute Lymphocytes 1.93 k/cumm (1.2-3.4) 11/05/19 15:05 Absolute Monocytes 0.76 k/cumm (0.11-0.7) H 11/05/19 15:05 Absolute Eosinophils 0.53 k/cumm (0.0-0.7) 11/05/19 15:05 Absolute Basophils 0.06 k/cumm (0.0-0.2) 11/05/19 15:05 Sodium 136 mmol/L (136-145) 11/07/19 06:20 Potassium 3.2 mmol/L (3.5-5.1) L 11/07/19 06:20 Chloride 98 mmol/L (98-107) 11/07/19 06:20 Carbon Dioxide 32.1 mmol/L (21.0-32.0) H 11/07/19 06:20 Anion Gap 5.9 mmol/L (3-11) 11/07/19 06:20 BUN 17 mg/dL (7-18) 11/07/19 06:20 Creatinine 5.39 mg/dL (0.70-1.30) H* D 11/07/19 06:20 Estimated GFR/1.73 m2 11.02 (mL/min/1.73m2) 11/07/19 06:20 Glucose 74 mg/dL (74-106) 11/07/19 06:20 Calcium 8.3 mg/dL (8.5-10.1) L 11/07/19 06:20 Magnesium 2.0 mg/dL (1.8-2.4) 11/05/19 15:05 Total Bilirubin 0.5 mg/dL (0.2-1.0) 11/05/19 15:05 AST 33 U/L (15-37) 11/05/19 15:05 ALT 7 U/L (16-63) L 11/05/19 15:05 Alkaline Phosphatase 186 U/L (46-116) H 11/05/19 15:05 Troponin I 0.09 ng/Ml (<0.06) H* 11/07/19 06:20 Total Protein 6.9 g/dL (6.4-8.2) 11/05/19 15:05 Albumin 2.1 g/dL (3.4-5.0) L 11/05/19 15:05
--- NOTE | 2019-11-07 10:56 | PDOC.CMDIS ---
LACE Index Scoring Tool - Questions: Length of Stay (in days): 2 Acuity (Admit via E.D.?): Yes Comorbidities: Mild Liver/Renal Disease, Liver or Renal Disease E.D. Visits: 12 - Answers: Total Score: 14 Risk of Readmission: High Risk Care Management Discharge Reason for Hospitalization: SOB Discharge Plan: Timmy will return home, and resume current service supports. He will transport via [facility]. Patient/Family Education Needs: Review discharge instructions, discuss Ask Me Three. Services Needed at Discharge: DME Agency, Home Health Care Services
[2019-11-07 12:19] VITALS: PULSE 85
--- NOTE | 2019-11-07 12:25 | DSE_ITS ---
Date of service: 11/07/19 Time of Service: 12:26 DS: Diagnosis Discharge Diagnosis (1) Cardiomyopathy: Status: Acute Asessment and Plan: cardiomyopathy was detected by POCUS but confirmed by formal echocardiogram. His LVEF by formal echo is 15-20% w/ global hypokinesis and dilatation of his LV. He has a large left pleural effusion but no pericardial effusion. He was discharge to [facility] for dialysis to control his fluid overload. He was given an Rx for Toprol XL 25 mg daily for his CM. (2) Elevated troponin I level: Status: Acute Asessment and Plan: his troponin peaked at 0.13 and had declined to 0.09 at discharge. He had no acute injury pattern or ischemia on his EKG. His echo did not demonstrate regional wall differences. He will be scheduled for follow up Lexiscan stress MPI in the next week w/ follow up with cardiology locally (3) ESRD (end stage renal disease) on dialysis: Status: Chronic Asessment and Plan: attempts were made to transfer the patient to the regional tertiary care centers for hemodialysis and further cardiology workup of his cardiomyopathy, however, [facility] did not feel that he met criteria for inpatient transfer and [facility] did not have any beds available. As the patient was oxygenating well on room air and was hemodynamically stable and had no chest pain or dyspnea at rest (and he is bedbound at baseline), it was felt that he could be sent to his outpatient hemodyalysis center for dialysis to control his fluid overload. (4) Pulmonary embolus: Status: Suspected Asessment and Plan: we had no diagnostic studies to prove or disprove any recurrent PE's, he was restarted on his Apixaban. As he had been off this for 2 months he was restarted at the loading dose of 10 mg BID for 1 week and instructed to reduce the dose to 2.5 mg BID thereafter. A new Rx was sent to his pharmacy. (5) Anemia in chronic kidney disease: Status: Chronic Asessment and Plan: His anemia of CKD remained stable and he did not require transfusion. Admission Hb was 10.1 gm (6) Decubitus ulcer of coccyx: Status: Chronic Asessment and Plan: his decubitus wounds although have a foul smell to them, this has been a chronic issue and he has been colonized w/ MRSA and MSSA. he exhibited no signs/symptoms of acute infection such as leukocytosis or fever. His wound were cleansed and then packed by the wound care nurse. Home health nursing is to continue their wound care treatments for him upon discharge. He is to resume of his usual home health care treatments. Discharge Plan Disposition Patient Disposition: HOME Condition: Stable Discharge Details Chief Complaint: Vascular Clinical Impression: Dyspnea Reason For Visit: SOB Admit Date/Time: 11/05/19 19:18 Admit Provider: Deangelo Petit Attending Provider: Deangelo Petit Primary Care Provider: Keegan Cruz ED Provider: Renato Gregory Hospital Course Hospital Course: 59-year-old male with a history of end-stage renal disease who receives hemodialysis through [facility] every Sunday//Sunday who has a prior history of pulmonary embolus treated with Eliquis about 3 months ago but ran out of his Eliquis about 2 months ago and did not get it refilled because he reportedly said he did not know he was supposed to continue it. He presented to his primary care physician's office with a one-month history of exertional dyspnea and intermittent chest pains. He was sent to the emergency department where he was evaluated including EKG and labs and chest x-ray. Chest x-ray demonstrated normal-sized heart but small bilateral pleural effusions reportedly smaller than his previous exam no focal infiltrates were seen. Laboratory work-up included a CBC which demonstrated a stable chronic anemia with a hemoglobin of 10.1 g. Normal white cell count 6400. CMP demonstrated a normal potassium of 4.7 and a BUN of 9 and creatinine 3.4. His initial troponin was 0.08. He was admitted by Dr. Petit from the ER for reinstitution of his Eliquis and for serial monitoring of his troponin levels. Apparently his second troponin performed in the emergency department had shown an increase to 0.10. EKG did not demonstrate acute ischemic changes. At the time of admission the patient was asymptomatic of any chest pain or acute dyspnea. Patient remained free of any chest discomfort throughout his hospital stay and the troponins were trended until they came down. They peaked at 0.13 and on the day of discharge they were down to 0.09. Serial BMPs were monitored as potassium remained lower within normal limits. At the time of discharge his potassium was low at 3.2. Attempts were made to try to transfer the patient to a tertiary care center where he could complete a work-up of his cardiomyopathy and also receive hemodialysis for management of his volume overload. On the day following admission when I assumed his care I made multiple attempts to transfer him both to [facility] and [facility]. Neither facilities were accepting patients. I did talk with the Dr. Kunz the hospitalist from [facility] both on November 06, 2019 as well as again on the November 07, 2019. He went over the case with me he felt that given the minimal elevation in his troponin levels and the fact that they plateaued and came back down that this may represent more left ventricular strain from his volume overload rather than acute coronary syndrome. He felt the best course of action was to get the patient to hemodialysis. He felt that the rest of his ischemic work-up could be performed as an outpatient. Try to reach out again at [facility] on the day of discharge but was not getting a response from the transfer center. At that point I contacted the patient's hemodialysis center and arrange for him to have hemodialysis on the day of discharge. Patient will have an outpatient stress MPI and we will arrange follow-up with cardiology upon discharge. Home Meds and New Rx's Prescriptions: New metoprolol succinate 25 mg capsule,sprinkle,ER 24hr 25 mg PO DAILY Qty: 30 RF: 0 Continued Ensure High Protein 237 ML liquid 237 ml PO PRN RF: 0 tramadol 50 mg tablet 50 mg PO TID PRN (Reason: pain) Qty: 30 RF: 5 venlafaxine [Effexor XR] 150 MG capsule,extended release 24hr 150 mg PO DAILY RF: 0 ferrous sulfate 325 MG tablet 325 mg PO DAILY RF: 0 gabapentin 300 MG capsule 300 mg PO HS RF: 0 cholecalciferol (vitamin D3) 25 mcg (1,000 unit) Tablet 1,000 unit PO DAILY RF: 0 clonazepam 1 mg tablet 0.5 mg PO TID RF: 0 Nephro-Hawa 0.8 mg Tablet 0.8 mg PO DAILY RF: 0 amlodipine [Norvasc] 5 mg tablet 10 mg PO DAILY RF: 0 acetaminophen [Tylenol] 325 mg Tablet 650 mg PO Q4H PRNRF: 0 apixaban 2.5 mg tablet 2.5 mg PO BID Qty: 60 RF: 11 calcitriol 0.25 MCG capsule 0.25 mcg PO DAILY Qty: 30 RF: 0 calcium acetate(phosphat bind) 667 MG capsule 1,334 mg PO AC Qty: 180 RF: 0 sodium bicarbonate 650 MG tablet 650 mg PO TID Qty: 60 RF: 0 Discharge Instructions Instructions: Dilated Cardiomyopathy (GEN) Additional Instructions: Increase your apixaban to 10 mg twice a day for 1 week (4 tablets of 2.5 mg each taken twice a day x1 week) after 1 week decrease the dose to 2.5 mg (1 tablet) twice a day Resume home health care through visiting nurse Stand Alone Forms: Nursing Discharge Form Referrals: Cardiology [Other] - 12/05/19 10:20 am Keegan Cruz [Primary Care Provider] - 11/19/19 2:00 pm Activity:: Activity as Tolerated Equipment/Supplies:: No Equipment Needed Diet:: Low-sodium renal diet Discharge Orders Discharge Orders: Discharge Order (Routine); Ordered 11/07/19 Ordered By: Ryne Almeida Other Ambulatory Orders: NM MPI rest & stress grp (Routine) Timeframe: 1 Week Facility: [facility] - Location: DIAGNOSTIC IMAGING DEPT Ordered By: Ryne Almeida Discharge Data Discharge Date/Time-TO BE ENTERED AT DEPARTURE: 11/07/19 12:56 DS: Summary Status at Discharge Functional status at discharge: bed bound Overall status at discharge: patient is back to baseline Mental Status: mental status grossly normal Speech and Movement: speech and movement normal Mood: congruent mood Affect: normal affect Exam Narrative Exam Narrative: Alert and oriented person place time circumstance sitting up in bed eating his breakfast. Lungs clear anteriorly upper lung maciel but posteriorly has markedly diminished breath sounds right more so than the left. No rhonchi or wheezing. Heart is regular rate and rhythm no appreciable murmur Abdomen soft and nontender. Colostomy is draining light brown soft stool. Suprapubic catheter has no significant output Psych Mental Status: mental status grossly normal Speech and Movement: speech and movement normal Mood: congruent mood Affect: normal affect DS: Data Vitals/I&O Vitals and I&O: Vital Signs Temperature 36.9 C 11/07/19 08:51 Temperature Source Tympanic 11/07/19 08:51 Pulse 85 11/07/19 12:19 Pulse Rhythm Regular 11/07/19 08:50 Pulse 102 H 03/11/20 20:10 Respiratory Rate 20 11/07/19 08:51 Respiratory Effort Non-Labored 11/07/19 08:50 Respiratory Depth Normal 11/07/19 08:50 Respiratory Pattern Normal 11/07/19 08:50 Blood Pressure 152/91 H 11/07/19 08:51 Blood Pressure Mean 95 11/05/19 17:55 Blood Pressure Position Sitting 11/05/19 14:09 Pulse Oximetry 92 L 11/07/19 08:51 Oxygen Delivery Method Room Air 11/07/19 08:51 Oxygen Flow Rate 0 11/07/19 08:51 Pain Level 0 11/07/19 08:51 Comment 11/05/19 21:01 Intake & Output 11/06/19 11/07/19 11/07/19 23:59 11:59 23:59 Intake Total 120 / 120 560 / 560 Output Total 150 / 150 Balance -30 / -30 560 / 560 Intake: Oral 120 / 120 560 / 560 Output: Stool 150 / 150 Other: Urine Color Brown Urine Appearance Cloudy Cloudy Comment minimal output Data Completed and Pending Labs on day of discharge: Labs from last 24 hours 11/07/19 11/06/19 06:20 14:10 Sodium 136 Potassium 3.2 L Chloride 98 Carbon Dioxide 32.1 H Anion Gap 5.9 BUN 17 Creatinine 5.39 H* D Estimated GFR/1.73 m2 11.02 Glucose 74 Calcium 8.3 L Troponin I 0.09 H* 0.12 H* PFSH Medical History (Updated 11/07/19 @ 19:15 by Ryne Almeida) Agoraphobia Anxiety Cerumen impaction Chronic anemia Chronic anemia (Acute) Chronic pain 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, stage II Chronic ulcer of left foot Decubitus ulcer Decubitus ulcer of coccyx (Chronic) Depression (emotion) Elevated TSH ESRD (end stage renal disease) on dialysis (Chronic) Essential hypertension (Acute) Hematuria (Acute) Hypogonadism in male (Acute) Neurogenic bladder Paraplegia Suicidal ideation Testosterone deficiency Surgical History Colostomy Hip debridement, with bone resection s/p right hip remova for bony infection (Inactive) Spinal Fusion Family History Mother Depression Diabetes Father Cancer Heart disease Social History Smoking/Tobacco Use Status: Current-Occasional Tobacco Type: cigarettes Quit status: not considering quitting Second Hand Exposure: Yes Alcohol Intake: former Drug use: Never Substance use type: does not use Caregiver/Support person: Yes Household members: spouse and friend(s) Housing: house Do you need help understanding health information?: Often Pets and animals: Yes Pets and animals: cat(s) and dog(s) Sexually active: No Do you think of yourself as: straight/heterosexual What is your relationship status?: How often do you talk on the phone with friends or family?: never How often do you get together with friends or relatives?: never How often do you attend caodaism or holiness services?: decline to answer Do you belong to any clubs or organized social groups?: no Panel score (0-1 are the most socially isolated patients): 1 Marcelle/Zoroastrianism: Seventh Day Judaism Special marcelle needs: No Seatbelt use: always Helmet use: No Drive intox or ride w/intox ross carrier driver: No Do you feel safe at home: Yes Do you feel safe in your relationship?: Yes
== END 2019-11-07 12:56 | disposition home or self-care (01) ==
LOC: ER 20:14 → MS 11-06 09:15
PROVIDERS: Internal Medicine; Admitting Provider General Practice; Emergency Provider Emergency Medicine; PCP Family Medicine; Visit Provider General Practice
DX: I42.9 Cardiomyopathy, unspecified (principal); R06.02 Shortness of breath; R07.89 Other chest pain; R79.89 Other specified abnormal findings of blood chemistry; Z86.711 Personal history of pulmonary embolism; F17.210 Nicotine dependence, cigarettes, uncomplicated; N18.6 End stage renal disease; T45.526A Underdosing of antithrombotic drugs, initial encounter; Z91.138 Patient's unintentional underdosing of medication regimen for other reason; F41.9 Anxiety disorder, unspecified; G89.29 Other chronic pain; F32.9 Major depressive disorder, single episode, unspecified; I12.9 Hypertensive chronic kidney disease with stage 1 through stage 4 chronic kidney disease, or unspecified chronic kidney disease; G82.20 Paraplegia, unspecified; N31.9 Neuromuscular dysfunction of bladder, unspecified; D63.1 Anemia in chronic kidney disease; Z93.3 Colostomy status; L89.154 Pressure ulcer of sacral region, stage 4; L89.224 Pressure ulcer of left hip, stage 4; L89.213 Pressure ulcer of right hip, stage 3; L89.890 Pressure ulcer of other site, unstageable; R09.02 Hypoxemia
CPT/HCPCS: 36415; 80048; 80053; 93005; 93306; 99222; 99226; 99233; 99239; 99285; 71046; 83735; 84484; 85025; 93010; 99217; 99219; A0425; A0428; G0378; J1940

== ENCOUNTER 2019-11-25 10:15 | Outpatient (REF) | payer MEDICARE, MEDICAID, SELFPAY ==
[2019-11-25 11:11] LABS: Abs Immature Grans 0.02 k/cumm (0.0-0.09); Absolute Basophil Count 0.03 k/cumm (0.0-0.2); Absolute Eosinophil Count 0.27 k/cumm (0.0-0.7); Absolute Lymphocyte Count 1.61 k/cumm (1.2-3.4); Absolute Monocyte Count 0.91 k/cumm (0.11-0.7); Absolute Neutrophil Count 6.98 k/cumm (1.2-6.7); Basophils % 0.3; Eosinophils % 2.7; HCT 33.3 % (40.0-50.0); HGB 10.7 g/dL (13.5-17.5); Immature Grans % 0.2 %; Lymphocytes % 16.4; Mean Corp. HGB Concentration 32.1 g/dL (32.0-36.0); Mean Corpuscular Volume 84.1 fL (80-95); Mean Platelet Volume 9.7 fL (8.0-11.0); Monocytes % 9.3; Neutrophils % 71.1; Platelet Count 193 x1000/uL (130-400); RBC 3.96 m/cumm (4.50-6.00); RBC Distribution Width 17.3 % (11.8-14.1); White Blood Cell Count 9.82 k/cumm (4.4-10.8)
== END 2019-11-25 10:35 ==
LOC: LBN 10:15
PROVIDERS: PCP Family Medicine; Visit Provider Family Medicine
DX: D50.8 Other iron deficiency anemias (principal); L89.159 Pressure ulcer of sacral region, unspecified stage
CPT/HCPCS: 87077; 85025; 87070; 87205

== ENCOUNTER → 2019-12-04 09:47 | Outpatient (BNVA) | payer MEDICARE, MEDICAID, SELFPAY | PROVIDERS: PCP Family Medicine; Referring Provider Family Medicine; Visit Provider Internal Medicine Cardiovascular Disease | DX: I25.5 Ischemic cardiomyopathy (principal); I26.99 Other pulmonary embolism without acute cor pulmonale; I12.9 Hypertensive chronic kidney disease with stage 1 through stage 4 chronic kidney disease, or unspecified chronic kidney disease; N18.6 End stage renal disease; Z99.2 Dependence on renal dialysis | CPT/HCPCS: 99204; 99443 ==

== ENCOUNTER 2019-12-19 12:29 | Outpatient (REF) | payer MEDICARE, MEDICAID, SELFPAY | END 2019-12-19 12:49 | LOC: LBN 12:29 | PROVIDERS: PCP Family Medicine; Visit Provider Family Medicine | DX: L89.154 Pressure ulcer of sacral region, stage 4 (principal) | CPT/HCPCS: 87077; 87070; 87186; 87205 ==

== ENCOUNTER 2019-12-31 15:51 | Outpatient (REF) | payer MEDICARE, MEDICAID, SELFPAY | END 2019-12-31 16:11 | LOC: LBN 15:51 | PROVIDERS: PCP Family Medicine; Visit Provider Family Medicine | DX: L97.919 Non-pressure chronic ulcer of unspecified part of right lower leg with unspecified severity | CPT/HCPCS: 87070; 87205 ==

== ENCOUNTER → 2020-01-21 09:31 | Outpatient (BNVA) | payer MEDICARE, MEDICAID, SELFPAY | PROVIDERS: PCP Family Medicine; Referring Provider Family Medicine; Visit Provider Student in an Organized Health Care Education/Training Program | DX: R69 Illness, unspecified (principal) ==

== ENCOUNTER 2020-03-31 18:31 | Outpatient (REF) | payer MEDICARE, MEDICAID, SELFPAY | END 2020-03-31 18:51 | LOC: LBN 18:31 | PROVIDERS: PCP Family Medicine; Visit Provider Family Medicine | DX: L89.154 Pressure ulcer of sacral region, stage 4 (principal) | CPT/HCPCS: 87077; 87070; 87186; 87205 ==

== ENCOUNTER 2020-09-20 14:47 | Outpatient (REF) | payer MEDICARE, MEDICAID, SELFPAY ==
[2020-09-21 20:25] LABS: COVID-19 RT-PCR UVMMC Result Negative (Negative)
== END 2020-09-20 15:07 ==
LOC: LBN 14:47
PROVIDERS: PCP Family Medicine; Visit Provider Family Medicine
DX: Z20.822 Contact with and (suspected) exposure to COVID-19 (principal)
CPT/HCPCS: U0003

== ENCOUNTER 2020-10-05 11:37 | Emergency (ER) | payer MEDICARE, MEDICAID, SELFPAY ==
[2020-10-05] VITALS (56 sets, daily range): BP systolic 145–169; BP diastolic 79–127; PULSE 75–84; RESP 8–31; O2SAT 84–99
--- NOTE | 2020-10-05 11:30 | RT.EKG_ITS ---
APPROVED REPORT Exam: Resting ECG Patient Location: E HR:77 bpm ECG Measurements Heart Rate 77 AXIS OK 206 P 36 QRSd 147 QRS 30 QT 435 T 25 QTc 493 Conclusion Sinus rhythm...normal P axis, V-rate 60- 99 Borderline prolonged OK interval...OK >202, V-rate 50- 90 Nonspecific intraventricular conduction delay...QRSd >115mS, not LBBB/RBBB I have reviewed and interpreted ECG and agree with software generated interpretation.
--- NOTE | 2020-10-05 11:30 | DI.RAD_ITS ---
EXAM: XR PORTABLE CHEST AP CLINICAL HISTORY: Hypoxia, Hx dialysis, R/O pneumonia TECHNIQUE: 2D digital imaging was performed. COMPARISON: CR XR PORTABLE CHEST AP from 02/04/2019 CR XR CHEST 2V PA LATERAL from 11/05/2019 FINDINGS: MEDIASTINUM: Normal. HEART: Normal. PULMONARY VASCULATURE: Normal. LUNGS: Diffuse interstitial prominence which may represent edema. PLEURAL SPACE: Bilateral pleural effusions. BONE:Within normal limits for the patient's age. Findings of thoracic and lumbar lumbar fixation spi nal fixation is noted. OTHER FINDINGS:There is again seen a dual lumen right IJ catheter. IMPRESSION: Findings suggestive pulmonary edema and bilateral pleural effusions. DATA REPOSITORY: RADIATION DOSE DELIVERED:
--- NOTE | 2020-10-05 11:48 | ED.GENADUL_ITS ---
Discharge Plan Discharge Details Chief Complaint: [facility]Medical Primary Care Provider: Keegan Cruz ED Provider: Cynthia Ellis Home Meds and New Rx's Prescriptions: No Action Ensure High Protein 237 ML liquid 237 ml PO PRN RF: 0 tramadol 50 mg tablet 50 mg PO TID PRN (Reason: pain) Qty: 30 RF: 5 amlodipine [Norvasc] 5 mg tablet 10 mg PO DAILY Qty: 60 RF: 11 venlafaxine [Effexor XR] 150 mg capsule,extended release 24hr 150 mg PO DAILY Qty: 30 RF: 11 ferrous sulfate 325 mg (65 mg iron) tablet 325 mg PO DAILY Qty: 90 RF: 4 sodium bicarbonate 650 mg tablet 650 mg PO TID Qty: 90 RF: 11 Nephro-Hawa 0.8 mg tablet 0.8 mg PO DAILY Qty: 90 RF: 4 calcitriol 0.25 mcg capsule 0.25 mcg PO DAILY Qty: 90 RF: 4 calcium acetate(phosphat bind) 667 mg capsule 1,334 mg PO AC Qty: 180 RF: 4 cholecalciferol (vitamin D3) 25 mcg (1,000 unit) tablet 1,000 unit PO DAILY Qty: 90 RF: 4 acetaminophen [Tylenol] 325 mg tablet 650 mg PO Q4H PRN (Reason: headache) Qty: 30 RF: 0 ciprofloxacin HCl [Cipro] 500 mg tablet 500 mg PO Q24H Qty: 10 RF: 0 metoprolol succinate 25 mg tablet extended release 24 hr 25 mg PO DAILY Qty: 30 RF: 11 gabapentin 300 mg capsule 300 mg PO HS Qty: 30 RF: 5 clonazepam 1 mg tablet 0.5 mg PO TID PRN (Reason: Anxiety) Qty: 45 RF: 5 mirtazapine 15 mg tablet 7.5 mg PO QHS Qty: 15 RF: 5 apixaban 2.5 mg tablet 2.5 mg PO BID Qty: 60 RF: 11 Discharge Data Discharge Date/Time-TO BE ENTERED AT DEPARTURE: 10/05/20 17:01 Medical Decision Making 60-year-old male presents to the ED with chief complaint of weakness last 2 days , mild cough, was found this morning unable to get out of bed by transport to dialysis which she was scheduled for today. EMS was called at that time. On scene patient was found to have O2 sat in the 70s, upon initial exam he is 77% room air with a good Pleth, he comes up to 95 % on 15 L NRB. Patient has multiple chronic morbidities, he is a paraplegic and wheelchair-bound, history of end-stage renal disease, cardiomyopathy, neurogenic bladder, he has a colostomy, 1305: X-ray at bedside for portable chest x-ray, I was informed that patient's O2 sat was dropping patient was complaining of not being able to breathe, O2 sat 8586, patient placed on 10 L nonrebreather, O2 sat up now to 99%. Will place patient back on 10L high flow NC and titrate as needed to keep sat greater than 90%. 1314: Spoke with [facility] [place] transfer [place] 1323: Spoke with patients sister, Lennox, informed of patient status. 1346: Patient is tolerating oxygen well, instructed nursing staff development coordinator high flow nasal cannula titrated down to 6 L. He is satting approximately 94% at this time on [address] ordered due to patient's history of PEs and unexpained Hypoxia. 1409: Spoke with with [facility] and Nephrology and hospitalist team they accept pt, for step down admission and transfer. They recommend treating the hyperkalemia emergently. Calcium gluconate 1000 mg IV ordered, albuterol neb given, 10 units regular insulin given subcu, D50 25 g dextrose given IV for hyperkalemia. Repeat BMP ordered to evaluate potassium. 1448: Spoke with Dr. Serrano who is a medical coder at [facility] regarding patient case and details he verbalizes understanding. Patient currently on 8 L high flow oxygen cannula. Patient has a bed confirmation EMS in route for transfer. At this time of this dictation patient O2 sat borderline at 89% on 8 L high flow nasal cannula, 1600: Patient remains 86-87% despite bumping up O2 to 10 L high flow nasal cannula, patient placed on nonrebreather at 15 L, he is now 92%. We repositi oned him and patient is in more upright position. Furosemide 40 mg IV ordered for possible fluid overload pulmonary edema and pleural effusion. Repeat BMP is pending at this time. 1615: Repeat BMP shows potassium 7.5, sodium 130, BUN 105, creatinine 10.5, glucose 146. 1700: EMS here patient be transferred to [facility] he is on 15 L nonrebreather with a sat of 94%. This text was generated using [employer] dictation system, please disregard any oddities of phrase or misspellings. HPI General Mode of arrival: EMS . Date/Time Provider Initiated Documentation: 10/05/20 11:40 . Limitations to Documentation: no limitations and physical limitation . Information obtained by: patient and EMS . HPI Narrative: 60-year-old male presents to the ED with chief complaint of weakness last 2 days, mild cough, was found this morning unable to get out of bed by transport to dialysis which she was scheduled for today. EMS was called at that time. On scene patient was found to have O2 sat in the 70s, upon initial exam he is 77% room air with a good Pleth, he comes up to 95 % on 15 L NRB. Patient has multiple chronic morbidities, he is a paraplegic and wheelchair-bound, history of end-stage renal disease, cardiomyopathy, neurogenic bladder, he has a colostomy, Related Data Home Medications Medication Instructions Recorded Confirmed Ensure High Protein 237 ml PO PRN 12/16/15 10/05/20 apixaban 2.5 mg PO BID #60 tab 11/07/19 10/05/20 tramadol 50 mg tablet 50 mg PO TID PRN #30 tab 12/02/19 10/05/20 amlodipine 5 mg tablet 10 mg PO DAILY #60 tab 01/21/20 10/05/20 venlafaxine 150 mg 150 mg PO DAILY #30 cap 01/21/20 10/05/20 capsule,extended release 24 hr calcitriol 0.25 mcg capsule 0.25 mcg PO DAILY #90 cap 01/27/20 10/05/20 calcium acetate(phosphat bind) 667 1,334 mg PO AC #180 cap 01/27/20 10/05/20 mg capsule cholecalciferol (vitamin D3) 25 1,000 unit PO DAILY #90 tab 01/27/20 10/05/20 mcg (1,000 unit) tablet ferrous sulfate 325 mg (65 mg 325 mg PO DAILY #90 tab 01/27/20 10/05/20 iron) tablet sodium bicarbonate 650 mg tablet 650 mg PO TID #90 tab 01/27/20 10/05/20 vitamin B complex-vitamin C-folic 0.8 mg PO DAILY #90 tab 01/27/20 10/05/20 acid 0.8 mg tablet acetaminophen 325 mg tablet 650 mg PO Q4H PRN #30 tab 01/29/20 10/05/20 ciprofloxacin HCl 500 mg tablet 500 mg PO Q24H #10 tab 03/29/20 10/05/20 metoprolol succinate 25 mg 25 mg PO DAILY #30 tab 05/04/20 10/05/20 tablet,extended release 24 hr gabapentin 300 mg capsule 300 mg PO HS #30 cap 06/07/20 10/05/20 clonazepam 1 mg tablet 0.5 mg PO TID PRN #45 tab 06/13/20 10/05/20 mirtazapine 15 mg tablet 7.5 mg PO QHS #15 tab 08/23/20 10/05/20 Previous Rx's Medication Instructions Recorded apixaban 2.5 mg PO BID #60 tab 11/07/19 tramadol 50 mg tablet 50 mg PO TID PRN #30 tab 12/02/19 amlodipine 5 mg tablet 10 mg PO DAILY #60 tab 01/21/20 venlafaxine 150 mg 150 mg PO DAILY #30 cap 01/21/20 capsule,extended release 24 hr calcitriol 0.25 mcg capsule 0.25 mcg PO DAILY #90 cap 01/27/20 calcium acetate(phosphat bind) 667 1,334 mg PO AC #180 cap 01/27/20 mg capsule cholecalciferol (vitamin D3) 25 1,000 unit PO DAILY #90 tab 01/27/20 mcg (1,000 unit) tablet ferrous sulfate 325 mg (65 mg 325 mg PO DAILY #90 tab 01/27/20 iron) tablet sodium bicarbonate 650 mg tablet 650 mg PO TID #90 tab 01/27/20 vitamin B complex-vitamin C-folic 0.8 mg PO DAILY #90 tab 01/27/20 acid 0.8 mg tablet acetaminophen 325 mg tablet 650 mg PO Q4H PRN #30 tab 01/29/20 ciprofloxacin HCl 500 mg tablet 500 mg PO Q24H #10 tab 03/29/20 metoprolol succinate 25 mg 25 mg PO DAILY #30 tab 05/04/20 tablet,extended release 24 hr gabapentin 300 mg capsule 300 mg PO HS #30 cap 06/07/20 clonazepam 1 mg tablet 0.5 mg PO TID PRN #45 tab 06/13/20 mirtazapine 15 mg tablet 7.5 mg PO QHS #15 tab 08/23/20 Allergies Allergy/AdvReac Type Severity Reaction Status Date / Time oxycodone Allergy Skin Rash Unverified 12/04/19 09:16 topiramate [From Topamax] AdvReac Severe put me Unverified 12/04/19 09:16 out, couldn't wake me up General AMY: 2 Review of Systems All systems reviewed & are unremarkable except as noted in HPI and below Constitutional Constitutional: Reports as per HPI, Denies fever(s), Reports lethargy and Reports weakness Cardiovascular Cardiovascular: Reports as per HPI, Denies chest pain and Denies chest pain at rest Respiratory Respiratory: Reports as per HPI, Reports chest congestion and Reports cough Gastrointestinal Gastrointestinal: Reports as per HPI (Colostomy, Dark brown stools noted) Musculoskeletal Musculoskeletal: Reports as per HPI (Paraplegia, Wheelchair bound, max assist) Neurologic Neurologic: Reports system reviewed and no additional complaints, except as documented and Reports weakness [facility] Medical History Agoraphobia Anxiety Cerumen impaction Chronic anemia Chronic anemia Chronic pain 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, stage II Chronic ulcer of left foot Decubitus ulcer Decubitus ulcer of coccyx Depression (emotion) Elevated TSH ESRD (end stage renal disease) on dialysis Essential hypertension Hematuria Hypogonadism in male Neurogenic bladder Paraplegia Suicidal ideation Testosterone deficiency Surgical History Colostomy Hip debridement, with bone resection s/p right hip remova for bony infection Spinal Fusion Family History Mother Depression Diabetes Father Cancer Heart disease Social History Smoking/Tobacco Use Status: Current-Occasional Tobacco Type: cigarettes Tobacco: How many years used: 20 Quit status: not considering quitting Second Hand Exposure: Yes Smoking risk assessment performed?: Yes Alcohol Intake: former Drug use: Never Substance use type: does not use Caregiver/Support person: Yes Household members: spouse and friend(s) Housing: house Do you need help understanding health information?: Often Pets and animals: Yes Pets and animals: cat(s) and dog(s) Sexually active: No Do you think of yourself as: straight/heterosexual Current gender identity: male What is your relationship status?: How often do you talk on the phone with friends or family?: never How often do you get together with friends or relatives?: never How often do you attend mormonism or scientologist services?: decline to answer Do you belong to any clubs or organized social groups?: no Panel score (0-1 are the most socially isolated patients): 1 What type of physical activity do you participate in: wheelchair-bound Marcelle/Christianity: Day Anabaptist Special marcelle needs: No Seatbelt use: always Helmet use: No Drive intox or ride w/intox auto parts delivery driver: No Do you feel safe at home: Yes Do you feel safe in your relationship?: Yes Exam Narrative Exam Narrative: Constitutional: Alert and oriented x3. Appears older than stated age. Cachectic body habitus. Appears somewhat somnolent. Head: Normocephalic, no trauma. Eyes: Pupils PERRLA, Red reflex noted, EOM's intact. Eyelids symmetrical without lesions, discharge, or swelling. ENT: Bilateral TM's WNL, External ear normal to inspection, no mastoid TTP, swelling, or erythema, Nasal turbinates WNL, no nasal discharge. Normal dentition, Posterior pharynx WNL, no exudate. Chest: RRR, Normal S1, S2, distal pulses intact. Resp: Lungs diminished bilaterally, Abdomen: Colostomy bag noted to the left lower quadrant noted, dark brown stool noted in the bag ostomy site no surrounding erythema or swelling visualized, stoma is pink. Patient has an indwelling catheter, there is small amount of clear yellow urine noted in the bag. Musculoskeletal: Bilateral lower extremity atrophy noted with strictures. Skin: No suspicious rashes or lesions. Capillary refill less than 2 sec. Neurologic: Alert and oriented x 3. Following commands answers questions. Hematologic/Lymphatic: No ecchymosis, no lymphadenopathy.
[2020-10-05 12:38] LABS: Abs Immature Grans 0.03 10^3/uL (0.0-0.06); Absolute Basophil Count 0.09 10^3/uL (0.0-0.2); Absolute Eosinophil Count 0.36 10^3/uL (0.0-0.7); Absolute Lymphocyte Count 1.92 10^3/uL (1.2-3.4); Absolute Monocyte Count 1.08 10^3/uL (0.1-0.8); Basophils % 0.8; Eosinophils % 3.1; HCT 33.6 % (40.0-50.0); HGB 11.2 g/dL (13.5-17.5); Immature Grans % 0.3; Lymphocytes % 16.6; MCH 30.7 pg (27.0-33.0); MCHC 33.3 % (32.0-36.0); MCV 92.1 fL (80-95); MPV 9.8 fL (8.0-11.0); Monocytes % 9.3; Neutrophils % 69.9; Nucleated RBC 0 %; Platelet Count 277 10^3/uL (130-400); RBC 3.65 10^6/uL (4.36-5.78); RDW 13.9 % (11.8-14.1); RDW-SD 47.1 fL
[2020-10-05 12:47] LABS: Absolute Neutrophil Count 8.09 10^3/uL (1.2-6.7)
[2020-10-05 12:49] LABS: WBC 11.58 10^3/uL (4.4-10.8)
[2020-10-05 12:59] LABS: COVID-19 PCR Negative (Negative); Influenza A PCR Negative (Negative); Influenza B PCR Negative (Negative); RSV PCR Negative (Negative); Source Nasopharynx
[2020-10-05 13:03] LABS: ALT 16 U/L (16-63); AST 19 U/L (15-37); Albumin 3.2 g/dL (3.4-5.0); Alkaline Phosphatase 134 U/L (46-116); Anion Gap 12.3 mmol/L (3-11); Bilirubin, Total 0.4 mg/dL (0.2-1.0); CO2 23.7 mmol/L (21.0-32.0); Calcium 9.8 mg/dL (8.5-10.1); Chloride 94 mmol/L (98-107); Estimated GFR 5.15 (mL/min/1.73m2); Glucose 82 mg/dL (74-106); Sodium 130 mmol/L (136-145); Total Protein 9.3 g/dL (6.4-8.2)
[2020-10-05 13:05] LABS: Troponin I < 0.05 ng/mL (<0.06)
[2020-10-05 13:08] LABS: Potassium 8.1 mmol/L (3.5-5.1)
[2020-10-05 13:09] LABS: BUN 99 mg/dL (7-18)
[2020-10-05 13:10] LABS: CREATININE 10.4 mg/dL (0.70-1.30)
[2020-10-05 13:11] LABS: D-Dimer 4970 ng/mlFEU (<500)
[2020-10-05] MEDS: Albuterol 2.5 MG/3 ML INH SOLN VIAL UPD (14:28)
[2020-10-05] MEDS: Calcium Chloride 1000 MG/10 ML SYR IVP (14:37)
[2020-10-05] MEDS: Insulin REGULAR-Human 100 UNITS/ML UNIT 10 UNITS SC (14:37)
[2020-10-05] MEDS: Dextrose 50%-Water 25 GM/50 ML SYR IVP (14:37)
[2020-10-05 15:33] LABS: Troponin I < 0.05 ng/mL (<0.06)
[2020-10-05] MEDS: Furosemide 40 MG/4 ML VIAL IVP (16:34)
[2020-10-05 16:39] LABS: Anion Gap 11.3 mmol/L (3-11); CO2 23.7 mmol/L (21.0-32.0); Calcium 9.8 mg/dL (8.5-10.1); Chloride 95 mmol/L (98-107); Estimated GFR 5.09 (mL/min/1.73m2); Glucose 146 mg/dL (74-106); Sodium 130 mmol/L (136-145)
[2020-10-05 16:42] LABS: CREATININE 10.5 mg/dL (0.70-1.30)
[2020-10-05 16:43] LABS: BUN 105 mg/dL (7-18); Potassium 7.5 mmol/L (3.5-5.1)
== END 2020-10-05 17:01 ==
PROVIDERS: Emergency Provider Registered Nurse Emergency; PCP Family Medicine
DX: R09.02 Hypoxemia (principal); E87.5 Hyperkalemia; R53.1 Weakness; N18.6 End stage renal disease; Z99.2 Dependence on renal dialysis; I12.0 Hypertensive chronic kidney disease with stage 5 chronic kidney disease or end stage renal disease; Z03.818 Encounter for observation for suspected exposure to other biological agents ruled out; Z86.711 Personal history of pulmonary embolism
CPT/HCPCS: 36415; 80048; 80053; 93005; 94640; 96372; 96374; 96375; 99285; 71045; 83735; 84484; 85025; 85379; 93010; J1940; J7613

== ENCOUNTER 2020-12-13 20:46 | Emergency (ER) | payer MEDICARE, MEDICAID, SELFPAY ==
[2020-12-13] VITALS (32 sets, daily range): BP systolic 159–171; BP diastolic 79–88; PULSE 71–87; RESP 16–28; TEMP 36.8; O2SAT 89–98
--- NOTE | 2020-12-13 20:30 | RT.EKG_ITS ---
APPROVED REPORT Exam: Resting ECG Patient Location: E HR:79 bpm ECG Measurements Heart Rate 79 AXIS DC 170 P 57 QRSd 110 QRS 22 QT 404 T 64 QTc 465 Conclusion Sinus rhythm...normal P axis, V-rate 60- 99
--- NOTE | 2020-12-13 20:50 | ED.GENADUL_ITS ---
Discharge Plan Disposition Patient Disposition: [facility] Condition: Poor Discharge Details Clinical Impression: Hyperkalemia, Shortness of breath, Bilateral pleural effusion Primary Care Provider: Keegan Cruz ED Provider: Fly Freedman Home Meds and New Rx's Prescriptions: No Action Ensure High Protein 237 ML liquid 237 ml PO PRN RF: 0 amlodipine [Norvasc] 5 mg tablet 10 mg PO DAILY Qty: 60 RF: 11 venlafaxine [Effexor XR] 150 mg capsule,extended release 24hr 150 mg PO DAILY Qty: 30 RF: 11 ferrous sulfate 325 mg (65 mg iron) tablet 325 mg PO DAILY Qty: 90 RF: 4 sodium bicarbonate 650 mg tablet 650 mg PO TID Qty: 90 RF: 11 Nephro-Hawa 0.8 mg tablet 0.8 mg PO DAILY Qty: 90 RF: 4 calcitriol 0.25 mcg capsule 0.25 mcg PO DAILY Qty: 90 RF: 4 calcium acetate(phosphat bind) 667 mg capsule 1,334 mg PO AC Qty: 180 RF: 4 cholecalciferol (vitamin D3) 25 mcg (1,000 unit) tablet 1,000 unit PO DAILY Qty: 90 RF: 4 acetaminophen [Tylenol] 325 mg tablet 650 mg PO Q4H PRN (Reason: headache) Qty: 30 RF: 0 metoprolol succinate 25 mg tablet extended release 24 hr 25 mg PO DAILY Qty: 30 RF: 11 clonazepam 1 mg tablet 0.5 mg PO TID PRN (Reason: Anxiety) Qty: 45 RF: 5 mirtazapine 15 mg tablet 7.5 mg PO QHS Qty: 15 RF: 5 sevelamer carbonate 800 mg tablet 800 mg PO TID RF: 0 lidocaine 5 % adhesive patch,medicated 1 patch topical DAILY Qty: 30 RF: 1 apixaban 2.5 mg tablet 2.5 mg PO BID Qty: 60 RF: 11 aspirin [Adult Aspirin Regimen] 81 mg tablet,delayed release (DR/EC) 81 mg PO DAILY Qty: 90 RF: 4 atorvastatin 40 mg tablet 40 mg PO DAILY Qty: 90 RF: 4 gabapentin 300 mg capsule 300 mg PO HS Qty: 30 RF: 5 metoprolol succinate 100 mg tablet extended release 24 hr 100 mg PO DAILY Qty: 90 RF: 4 valsartan 80 mg tablet 80 mg PO DAILY Qty: 90 RF: 1 Medical Decision Making <Jean Paul Root MD - Last Filed: 12/13/20 22:42> 60 yo male on dialysis normally //sat per patient, cardiomyopathy, anem ia, Pe on apixiban, htn, paraplegia s/p spinal cord injury, depression, who comes in stating he has missed several dialysis sessions recently and has felt slowly worsening dyspnea over the course of a day. Denies fevers, cough or chest pain. He is vague on his history but states he thinks he last had dialysis this past , but missed Sunday and also missed last Sunday. He states he did not go to dialysis those days he missed because he did not call [facility] to arrange for a ride. HE does wear oxygen mainly at night and per ems he was in the high 80's on room air but on 2L NC is in the mid 90's. Has soft non tender abdomen, no wheezing on exam, mildly diminished breath sounds at the bases bilaterally but does not take deep full breaths when asked. I suspect dyspnea due to likely pulmonary edema from not goig to dialysis. Given lack of chest pain or pressure doubt acs. No cough or fever so doubt pneumonia and is on eliquis and denies missing doses on my exam so doubt PE. Will evaluate for anemia, hyperkalemia and obtian cxr to evaluate for pulmonary edema pt remains stable, labs show K of 7.5. Will order calcium gluconate, insulin/dextrose, albuterol. His xray on my read shows pulmonary edema awaiting vrad read. Will discuss with [facility] about transfer for dialysis spoke with medical team at [facility] and they are accepting to their floor, accepting provider is Dr. Sanders. PT updated and is agreeable with plan. xray read as pleural effusions and basilar opacities, can't exclude pneumonia but given no cough, fever or leukocytosis doubt pneumonia at this time and will hold on a ntibiotics. pt awaiting bed placement at [facility] [place], will be signed out to oncoming provider for continued monitoring until able to go to [facility] Differential Diagnosis Differential Diagnosis: pulmonary edema, hyperkalemia, pneumonia Medical Records Medical records reviewed: Yes I reviewed the patient's medical records. Imaging Data Radiologic Study: Attestation: I personally reviewed and interpreted this imaging study as follows: Imaging: X-Ray Radiologist's impression: IMPRESSION: 1. Bilateral pleural effusions with adjacent basilar airspace opacities suggesting atelectasis, right greater than left, stable since prior study. Cannot exclude pneumonia within the lung bases. Recommend clinical correlation. 2. Right-sided central line with its tip projecting at the right atrium, unchanged Lab Data Lab results reviewed: Yes I reviewed the patient's lab results. ECG Data Attestation: I personally reviewed and interpreted this ECG (s) as follows: Prior ECG tracings: not available for review Interpretation: sinus rhythm, rate of 79, pr 170, no peaked t waves or findings to suggest hyperkalemia <Fly Freedman DO - Last Filed: 12/13/20 23:30> Patient was signed out pending transfer to [facility]. [facility] has confirmed that placement, and has agreed to accept the patient for transfer. Patient is being transferred via EMS. During the transition period between Dr. Root and myself the patient has remained stable. Reassessment demonstrates hemodynamic stability. At time of transfer the patient was reassessed and continued to demonstrate current hemodynamic stability. No signs of acute respiratory distress requiring intubation, hemodynamic instability requiring pressor support, or rapidly declining mental status. The patient is stable for transport. HPI <Jean Paul Root MD - Last Filed: 12/13/20 22:42> General Mode of arrival: EMS . Date/Time Provider Initiated Documentation: 12/13/20 20:48 . Information obtained by: patient and EMS . History of Present Illness 60 year old M presents to the emergency department with the chief complaint of missed dialysis, described as moderate, and it has been constant. No relieving factors improve symptom(s), No exacerbating factors reported . Patient did receive the following treatments prior to arrival, none Related Data Home Medications Medication Instructions Recorded Confirmed Ensure High Protein 237 ml PO PRN 12/16/15 12/13/20 amlodipine 5 mg tablet 10 mg PO DAILY #60 tab 01/21/20 10/05/20 venlafaxine 150 mg 150 mg PO DAILY #30 cap 01/21/20 12/13/20 capsule,extended release 24 hr calcitriol 0.25 mcg capsule 0.25 mcg PO DAILY #90 cap 01/27/20 12/13/20 calcium acetate(phosphat bind) 667 1,334 mg PO AC #180 cap 01/27/20 12/13/20 mg capsule cholecalciferol (vitamin D3) 25 1,000 unit PO DAILY #90 tab 01/27/20 12/13/20 mcg (1,000 unit) tablet ferrous sulfate 325 mg (65 mg 325 mg PO DAILY #90 tab 01/27/20 12/13/20 iron) tablet sodium bicarbonate 650 mg tablet 650 mg PO TID #90 tab 01/27/20 12/13/20 vitamin B complex-vitamin C-folic 0.8 mg PO DAILY #90 tab 01/27/20 12/13/20 acid 0.8 mg tablet acetaminophen 325 mg tablet 650 mg PO Q4H PRN #30 tab 01/29/20 12/13/20 metoprolol succinate 25 mg 25 mg PO DAILY #30 tab 05/04/20 10/05/20 tablet,extended release 24 hr clonazepam 1 mg tablet 0.5 mg PO TID PRN #45 tab 06/13/20 12/13/20 mirtazapine 15 mg tablet 7.5 mg PO QHS #15 tab 08/23/20 12/13/20 sevelamer carbonate 800 mg tablet 800 mg PO TID 10/15/20 12/13/20 lidocaine 5 % topical patch 1 patch TOPICAL DAILY #30 ea 10/18/20 12/13/20 apixaban 2.5 mg tablet 2.5 mg PO BID #60 tab 11/15/20 12/13/20 aspirin 81 mg tablet,delayed 81 mg PO DAILY #90 tab 12/03/20 12/13/20 release atorvastatin 40 mg tablet 40 mg PO DAILY #90 tab 12/03/20 12/13/20 gabapentin 300 mg capsule 300 mg PO HS #30 cap 12/03/20 12/13/20 metoprolol succinate 100 mg 100 mg PO DAILY #90 tab 12/03/20 12/13/20 tablet,extended release 24 hr valsartan 80 mg tablet 80 mg PO DAILY #90 tab 12/07/20 12/13/20 Previous Rx's Medication Instructions Recorded amlodipine 5 mg tablet 10 mg PO DAILY #60 tab 01/21/20 venlafaxine 150 mg 150 mg PO DAILY #30 cap 01/21/20 capsule,extended release 24 hr calcitriol 0.25 mcg capsule 0.25 mcg PO DAILY #90 cap 01/27/20 calcium acetate(phosphat bind) 667 1,334 mg PO AC #180 cap 01/27/20 mg capsule cholecalciferol (vitamin D3) 25 1,000 unit PO DAILY #90 tab 01/27/20 mcg (1,000 unit) tablet ferrous sulfate 325 mg (65 mg 325 mg PO DAILY #90 tab 01/27/20 iron) tablet sodium bicarbonate 650 mg tablet 650 mg PO TID #90 tab 01/27/20 vitamin B complex-vitamin C-folic 0.8 mg PO DAILY #90 tab 01/27/20 acid 0.8 mg tablet acetaminophen 325 mg tablet 650 mg PO Q4H PRN #30 tab 01/29/20 metoprolol succinate 25 mg 25 mg PO DAILY #30 tab 05/04/20 tablet,extended release 24 hr clonazepam 1 mg tablet 0.5 mg PO TID PRN #45 tab 06/13/20 mirtazapine 15 mg tablet 7.5 mg PO QHS #15 tab 08/23/20 lidocaine 5 % topical patch 1 patch TOPICAL DAILY #30 ea 10/18/20 apixaban 2.5 mg tablet 2.5 mg PO BID #60 tab 11/15/20 aspirin 81 mg tablet,delayed 81 mg PO DAILY #90 tab 12/03/20 release atorvastatin 40 mg tablet 40 mg PO DAILY #90 tab 12/03/20 gabapentin 300 mg capsule 300 mg PO HS #30 cap 12/03/20 metoprolol succinate 100 mg 100 mg PO DAILY #90 tab 12/03/20 tablet,extended release 24 hr valsartan 80 mg tablet 80 mg PO DAILY #90 tab 12/07/20 Allergies Allergy/AdvReac Type Severity Reaction Status Date / Time oxycodone Allergy Skin Rash Unverified 12/13/20 20:55 topiramate [From Topamax] AdvReac Severe put me Unverified 12/13/20 20:55 out, couldn't wake me up tramadol AdvReac Itching Unverified 12/13/20 20:56 General AMY: 2 Review of Systems <Jean Paul Root MD - Last Filed: 12/13/20 22:42> All systems reviewed & are unremarkable except as noted in HPI and below Constitutional Constitutional: Denies chills and Denies fever(s) Cardiovascular Cardiovascular: Denies chest pain Respiratory Respiratory: Denies cough Gastrointestinal Gastrointestinal: Denies abdominal pain, Denies nausea and Denies vomiting Musculoskeletal Musculoskeletal: Denies joint swelling Psychiatric Psychiatric: Denies depression PFSH <Jean Paul Root MD - Last Filed: 12/13/20 22:42> Medical History (Updated 12/13/20 @ 22:20 by Jean Paul Root MD) Agoraphobia Anxiety Cerumen impaction Chronic anemia Chronic anemia Chronic pain 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, stage II Chronic ulcer of left foot Decubitus ulcer Decubitus ulcer of coccyx Depression (emotion) Elevated TSH ESRD (end stage renal disease) on dialysis Essential hypertension Hematuria Hypogonadism in male Neurogenic bladder Paraplegia Suicidal ideation Testosterone deficiency Surgical History Colostomy Hip debridement, with bone resection s/p right hip remova for bony infection Spinal Fusion Family History Mother Depression Diabetes Father Cancer Heart disease Social History Smoking/Tobacco Use Status: Current-Occasional Tobacco Type: cigarettes Tobacco: How many years used: 20 Quit status: not considering quitting Second Hand Exposure: Yes Smoking risk assessment performed?: Yes Alcohol Intake: former Drug use: Never Substance use type: does not use Caregiver/Support person: Yes Household members: spouse and friend(s) Housing: house Do you need help understanding health information?: Often Pets and animals: Yes Pets and animals: cat(s) and dog(s) Sexually active: No Do you think of yourself as: straight/heterosexual Current gender identity: male What is your relationship status?: How often do you talk on the phone with friends or family?: never How often do you get together with friends or relatives?: never How often do you attend scientology or scientology services?: decline to answer Do you belong to any clubs or organized social groups?: no Panel score (0-1 are the most socially isolated patients): 1 What type of physical activity do you participate in: wheelchair-bound Marcelle/Confucianism: [employer] Special marcelle needs: No Seatbelt use: always Helmet use: No Drive intox or ride w/intox crew car driver: No Do you feel safe at home: Yes Do you feel safe in your relationship?: Yes Exam <Jean Paul Root MD - Last Filed: 12/13/20 22:42> Const General: no acute distress Orientation: alert [facility] Head: normal to inspection Ears: external ears normal General nose exam: external nose normal Mouth: moist mucous membranes Eyes General: appearance normal, both eyes and all related structures Neck Neck: normal visual inspection Resp Effort & Inspection: normal respiratory effort Cardio Rate: regular rate Skin General skin exam: no rashes or lesions noted Neuro General: patient alert and patient oriented x3 Extrem General: capillary refill normal Critical Care Time <Jean Paul Root MD - Last Filed: 12/13/20 22:42> Critical Care Time Critical Care Time: Yes Total Critical Care Time: 60 (minutes) Attestation: time spent administering meds to lower critical high potassium level, frequent reassessments and hemodynamic monitoring in patient with potential to deteriorate at any time Sign Out <Jean Paul Root MD - Last Filed: 12/13/20 22:42> Sign Out Data: Sign Out Comment: hyperkalemia and pleural effusions after missing several dialysis sessions. Awaiting bed placement at [facility] Last updated by Jean Paul Root MD at 12/13/20 22:42
--- NOTE | 2020-12-13 21:00 | DI.RAD_ITS ---
EXAM: XR PORTABLE CHEST AP CLINICAL HISTORY: shortness of breath TECHNIQUE: COMPARISON: CR XR PORTABLE CHEST AP from 10/05/2020 FINDINGS: Note is again made of Hernandez rods place in the thoracolumbar region. There is double catheter th e tip of which overlies the SVC or right atrium. There are moderate bilateral pleural effusions. Th ere are diffuse bilateral pulmonary interstitial infiltrates, mild, most prominent in the lung bases. Findings are similar to prior chest film of October 05. IMPRESSION: Appearance of the chest is consistent with CHF, little interval change since prior examination of Feb ruary . Lung bases are not well visualized due to presence of pleural effusions. Superimposed consolidation is not excluded. Appropriate follow-up studies requested. RADIATION DOSE DELIVERED: Total DLP
[2020-12-13 21:11] LABS: BE (Venous) 0 mmol/L (-2-3); HCO3 (Venous) 25 mmol/L (23-28); O2 Sat (Venous) 61 %; TCO2 (Venous) 24 mmol/L (24-29); pCO2 (Venous) 45 mmHg (41-51); pH (Venous) 7.36 (7.31-7.41); pO2 (Venous) 35 mmHg
[2020-12-13 21:12] LABS: Abs Immature Grans 0.02 10^3/uL (0.0-0.06); Absolute Basophil Count 0.06 10^3/uL (0.0-0.2); Absolute Eosinophil Count 0.65 10^3/uL (0.0-0.7); Absolute Monocyte Count 0.75 10^3/uL (0.1-0.8); Absolute Neutrophil Count 5.42 10^3/uL (1.2-6.7); Basophils % 0.6; Eosinophils % 6.9; HCT 28.2 % (40.0-50.0); HGB 9.2 g/dL (13.5-17.5); Immature Grans % 0.2; Lymphocytes % 26.6; MCHC 32.6 % (32.0-36.0); MCV 91.9 fL (80-95); Neutrophils % 57.7; Nucleated RBC 0 %; Platelet Count 219 10^3/uL (130-400); RBC 3.07 10^6/uL (4.36-5.78); RDW 17.2 % (11.8-14.1); RDW-SD 57.6 fL
[2020-12-13 21:26] LABS: ALT 23 U/L (16-63); AST 20 U/L (15-37); Albumin 3.1 g/dL (3.4-5.0); Alkaline Phosphatase 154 U/L (46-116); Anion Gap 8.7 mmol/L (3-11); Bilirubin, Total 0.4 mg/dL (0.2-1.0); CO2 26.3 mmol/L (21.0-32.0); Calcium 9.1 mg/dL (8.5-10.1); Chloride 101 mmol/L (98-107); Estimated GFR 5.71 (mL/min/1.73m2); Glucose 87 mg/dL (74-106); Sodium 136 mmol/L (136-145); Total Protein 8.7 g/dL (6.4-8.2)
[2020-12-13 21:26] LABS: Source Nasal/Nares
[2020-12-13 21:37] LABS: INR 1.1 (0.9-1.1); Prothrombin Time 10.6 sec (9.3-11.0)
[2020-12-13 21:53] LABS: BUN 88 mg/dL (7-18); CREATININE 9.5 mg/dL (0.70-1.30)
[2020-12-13 21:54] LABS: Potassium 7.5 mmol/L (3.5-5.1)
[2020-12-13 22:05] LABS: COVID-19 PCR Negative (Negative)
--- NOTE | 2020-12-13 22:06 | DI.VRAD_ITS ---
PROCEDURE INFORMATION: Exam: XR Chest Exam date and time: 12/13/2020 9:20 PM Age: 60 years old Clinical indication: Shortness of breath; Prior surgery TECHNIQUE: Imaging protocol: XR of the chest. Views: 1 view. COMPARISON: CR XR PORTABLE CHEST AP 10/05/2020 12:33 PM FINDINGS: Tubes, catheters and devices: Again noted is a right-sided double lumen central line with its tip projecting at the right atrium, unchanged. Again noted are pedicle screws and interconnecting rods at the lower thoracic spine only partially imaged. Lungs: There are overall stable basilar airspace opacities, right greater than left, suggesting atelectasis. There may be mild central pulmonary vascular congestion, as on prior study. Pleural spaces: Again noted is confluent density at the right base suggesting moderate pleural effusion, without change. There is also blunting of the left lateral costophrenic angle suggesting small left pleural effusion, stable. Again noted is extrapulmonary density around the superior aspect of the left upper lobe, which may represent chronic pleural thickening versus loculated pleural fluid. Heart/Mediastinum: Heart size is indeterminate. Bones/joints: Unremarkable. IMPRESSION: 1. Bilateral pleural effusions with adjacent basilar airspace opacities suggesting atelectasis, right greater than left, stable since prior study. Cannot exclude pneumonia within the lung bases. Recommend clinical correlation. 2. Right-sided central line with its tip projecting at the right atrium, unchanged. Dictated and Authenticated by: Vivek Rodgers MD. Ordering:MARIA INES Reaves MD
[2020-12-13] MEDS: Insulin REGULAR-Human 100 UNITS/ML UNIT 10 UNITS IV (22:14)
[2020-12-13] MEDS: Sodium Zirconium Cyclosilicate 10 GM PKT PO (22:14)
[2020-12-13] MEDS: Calcium Gluconate 4.65 MEQ/10 ML VIAL 4.65 MG IVP (22:14)
[2020-12-13] MEDS: Albuterol 2.5 MG/3 ML INH SOLN VIAL UPD (22:15)
[2020-12-13] MEDS: Dextrose 50%-Water 25 GM/50 ML SYR IVP (22:15)
[2020-12-13] MEDS: Gabapentin 300 MG CAP PO (22:36)
--- NOTE | 2020-12-14 00:34 | NUR.NOTE ---
Nursing Note: Report given to Will GARCIA from [facility]
== END 2020-12-14 00:10 | disposition short-term general hospital (02) ==
PROVIDERS: Emergency Medicine; Emergency Provider Student in an Organized Health Care Education/Training Program; PCP Family Medicine
DX: E87.5 Hyperkalemia (principal); R06.02 Shortness of breath; J90 Pleural effusion, not elsewhere classified; I12.0 Hypertensive chronic kidney disease with stage 5 chronic kidney disease or end stage renal disease; N18.6 End stage renal disease; Z99.2 Dependence on renal dialysis; Z91.15 Patient's noncompliance with renal dialysis; Z20.822 Contact with and (suspected) exposure to COVID-19
CPT/HCPCS: 80053; 82805; 87635; 93005; 94640; 96374; 96375; 99291; 71045; 85025; 85610; 85730; 93010; J0610; J7613

== ENCOUNTER 2021-01-17 12:19 | Emergency (ER) | payer MEDICARE, MEDICAID, SELFPAY ==
[2021-01-17] VITALS (72 sets, daily range): BP systolic 100–126; BP diastolic 48–69; PULSE 81–86; RESP 12–30; TEMP 37.1; O2SAT 94–99
--- NOTE | 2021-01-17 12:15 | RT.EKG_ITS ---
APPROVED REPORT Exam: Resting ECG Reason for Exam: weakness HX CHF Patient Location: E HR:85 bpm ECG Measurements Heart Rate 85 AXIS UT 126 P 62 QRSd 92 QRS 58 QT 378 T 59 QTc 449 Conclusion Sinus rhythm...normal P axis, V-rate 60- 99 I have reviewed and interpreted ECG and agree with software generated interpretation.
[2021-01-17] MEDS: Normal Saline Flush 10 ML SYR IVP (12:25)
[2021-01-17 12:51] LABS: Abs Immature Grans 0.04 10^3/uL (0.0-0.06); Absolute Basophil Count 0.06 10^3/uL (0.0-0.2); Absolute Eosinophil Count 0.54 10^3/uL (0.0-0.7); Absolute Lymphocyte Count 2.02 10^3/uL (1.2-3.4); Basophils % 0.5; Eosinophils % 4.8; HCT 26.5 % (40.0-50.0); HGB 8.7 g/dL (13.5-17.5); Immature Grans % 0.4; Lymphocytes % 18.1; MCH 30.2 pg (27.0-33.0); MCHC 32.8 % (32.0-36.0); MPV 9.4 fL (8.0-11.0); Monocytes % 10.6; Neutrophils % 65.6; Nucleated RBC 0 %; Platelet Count 291 10^3/uL (130-400); RBC 2.88 10^6/uL (4.36-5.78); RDW 14.8 % (11.8-14.1); RDW-SD 50.1 fL; WBC 11.18 10^3/uL (4.4-10.8)
[2021-01-17 12:52] LABS: Absolute Monocyte Count 1.19 10^3/uL (0.1-0.8); Absolute Neutrophil Count 7.33 10^3/uL (1.2-6.7)
[2021-01-17 13:02] LABS: INR 1.3 (0.9-1.1); Prothrombin Time 13.2 sec (9.3-11.0)
--- NOTE | 2021-01-17 13:08 | W.ED.GENAD ---
Discharge Plan Disposition Patient Disposition: [facility] Condition: Poor Discharge Details Chief Complaint: GenMedical Clinical Impression: GI bleed Primary Care Provider: Carlos Chase ED Provider: Sharon Quintana [place] Meds and New Rx's Prescriptions: No Action Ensure High Protein 237 ML liquid 237 ml PO PRN RF: 0 ferrous sulfate 325 mg (65 mg iron) tablet 325 mg PO DAILY Qty: 90 RF: 4 sodium bicarbonate 650 mg tablet 650 mg PO TID Qty: 90 RF: 11 Nephro-Hawa 0.8 mg tablet 0.8 mg PO DAILY Qty: 90 RF: 4 calcitriol 0.25 mcg capsule 0.25 mcg PO DAILY Qty: 90 RF: 4 calcium acetate(phosphat bind) 667 mg capsule 1,334 mg PO AC Qty: 180 RF: 4 cholecalciferol (vitamin D3) 25 mcg (1,000 unit) tablet 1,000 unit PO DAILY Qty: 90 RF: 4 acetaminophen [Tylenol] 325 mg tablet 650 mg PO Q4H PRN (Reason: headache) Qty: 30 RF: 0 metoprolol succinate 25 mg tablet extended release 24 hr 25 mg PO DAILY Qty: 30 RF: 11 clonazepam 1 mg tablet 0.5 mg PO TID PRN (Reason: Anxiety) Qty: 45 RF: 5 mirtazapine 15 mg tablet 7.5 mg PO QHS Qty: 15 RF: 5 sevelamer carbonate 800 mg tablet 800 mg PO TID RF: 0 lidocaine 5 % adhesive patch,medicated 1 patch topical DAILY Qty: 30 RF: 1 apixaban 2.5 mg tablet 2.5 mg PO BID Qty: 60 RF: 11 aspirin [Adult Aspirin Regimen] 81 mg tablet,delayed release (DR/EC) 81 mg PO DAILY Qty: 90 RF: 4 atorvastatin 40 mg tablet 40 mg PO DAILY Qty: 90 RF: 4 gabapentin 300 mg capsule 300 mg PO HS Qty: 30 RF: 5 metoprolol succinate 100 mg tablet extended release 24 hr 100 mg PO DAILY Qty: 90 RF: 4 valsartan 80 mg tablet 80 mg PO DAILY Qty: 90 RF: 1 amlodipine [Norvasc] 5 mg tablet 10 mg PO DAILY Qty: 60 RF: 11 venlafaxine [Effexor XR] 150 mg capsule,extended release 24hr 150 mg PO DAILY Qty: 30 RF: 11 Discharge Data Discharge Date/Time-TO BE ENTERED AT DEPARTURE: 01/17/21 19:00 Medical Decision Making <VERN Duarte - Last Filed: 01/18/21 08:23> Chest x-ray without obvious evidence of pneumonia, bilateral moderate pleural effusions, unchanged for patient Guaiac positive stool with maroon discoloration Hemodynamically stable b hemoglobin 8.7, hematocrit of 26 Patient given 80 of Protonix, patient will need to be admitted for observation, he is unsafe for discharge home at this time, concern for possible GI bleeding on Eliquis and aspirin Case discussed with [facility], discussed with Dr. Guerrero who has accepted patient in transfer, there will be a delay as that placement has been an issue They are aware that we are unable to accept the patient inpatient secondary to dialysis Chest pain is stable Patient is alert and oriented, he is an uric so no urinalysis was ordered He is pending discharge home at this time Case will be signed out to Sharon Garzon, physician health care assistant [id number] I was asked to order a lactate and repeat hemoglobin hematocrit, pending transport I was asked to evaluate the patient when he was slept for a bowel movement and he has a notable decubitus ulcer which was described in previous report, there are some malodorous drainage, no evidence of cellulitis Also noted was a suprapubic catheter, this was not noted previously did have suprapubic catheter lactate negative does not meet sepsis criteria Differential Diagnosis Differential Diagnosis: GI bleed, uremia, electrolyte abnormality, infection Medical Records Medical records reviewed: Yes I reviewed the patient's medical records. <VERN Sawyer - Last Filed: 01/18/21 23:05> Care transition to myself from Brittany Champion PA-C. Please see her initial note regarding history, presentation and exam. The time I assume care, imaging pending. Patient had been accepted at [facility]. Pending transfer. VERN Champion who was concerned for potential urinary fistula based on the appearance of the urine in the [place] bag. [place] has been clamped, patient does make minimal urine, awaiting urinalysis results with FINDINGS: Pleural spaces: Small to moderate-sized bilateral pleural effusions with adjacent atelectasis. Component of right lower lobe pneumonia cannot be excluded. Liver: Normal. No mass. Gallbladder and bile ducts: Multiple layering gallstones. No CT evidence cholecystitis. Pancreas: Normal. No ductal dilation. Spleen: Normal. No splenomegaly. Adrenal glands: Normal. No mass. Kidneys and ureters: Punctate nonobstructing left lower pole renal calculus. No hydronephrosis. No right renal calculus. Stomach and bowel: Stable appearance of the loop transverse colostomy in the midline abdominal wall. No bowel obstruction. No bowel obstruction or bowel wall thickening. Appendix: No evidence of appendicitis. Intraperitoneal space: Unremarkable. No free air. No significant fluid collection. Vasculature: Unremarkable. No abdominal aortic aneurysm. Lymph nodes: Interval increase in extensive reactive bilateral pelvic and inguinal lymph nodes. Urinary bladder: Suprapubic catheter with decompressed urinary bladder. Reproductive: Unremarkable as visualized. Bones/joints: Thoracolumbar fixation hardware. Increase in the extensive sacral decubitus ulcers and but stable postsurgical resection of the sacrum. Adjacent postoperative changes and right hip joint fluid collection with resection of the proximal femur is stable.? Scattered heterotopic ossification within the right hip. Severe left hip joint space narrowing. Soft tissues: Bilateral gynecomastia. Left fat containing periumbilical hernia without evidence for bowel involvement. IMPRESSION: 1. Small to moderate bilateral pleural effusions with adjacent atelectasis. Superimposed right lower lobe pneumonia cannot be excluded. 2. Transverse colon loop colostomy without evidence for upstream bowel wall thickening or bowel obstruction. Normal caliber of both large and small bowel. 3. Suprapubic catheter within the decompressed urinary bladder, incompletely evaluable without contrast. 4. Overall increase in the extensive bilateral pelvic and inguinal lymphadenopathy. 5. Thoracolumbar spine fixation hardware. 6. Extensive postoperative changes with heterotopic ossification and prior debridement of the right hip with residual fluid and post surgical margin of the proximal right femur. In addition, there is extensive postoperative changes involving the sacrum from prior chronic osteomyelitis and multiple growing stable sacral decubitus ulcers. 7. Cholelithiasis. Urinalysis is pending. I did call [facility] and update them. Images have been pushed to their facility. Patient has been accepted on [facility] and will be transferred down via EMS. Patient transferred via EMS to [facility] HPI <VERN Duarte - Last Filed: 01/18/21 08:23> General Mode of arrival: ambulatory. Date/Time Provider Initiated Documentation: 01/17/21 12:27. Limitations to Documentation: no limitations. Information obtained by: patient. HPI Narrative: . This 61-year-old male presents with history of hyperkalemia, shortness of breath, renal dialysis, essential hypertension, presents with report of progressive weakness over the past week but worsened in the past 3 days. Patient has been unable to ambulate at home and was unusual for him. He typically lives independently and has assistance with home health. He denies any falls or injuries. He denies any chest pain or shortness of breath. He denies any pain complaints. He denies any known blood in stool. He denies any vomiting. He is anuric reportedly. He denies any additional complaints. He was able to complete dialysis on Sunday reportedly. Sister checked on him last evening and he was very ill and she wanted to call 911 at that time it was unsuccessful. Related Data Home Medications Medication Instructions Recorded Confirmed Ensure High Protein 237 ml PO PRN 12/15/01/17/21 calcitriol 0.25 mcg capsule 0.25 mcg PO DAILY #90 cap 01/27/20 01/17/21 calcium acetate(phosphat bind) 667 1,334 mg PO AC #180 cap 01/27/20 01/17/21 mg capsule cholecalciferol (vitamin D3) 25 1,000 unit PO DAILY #90 tab 01/27/20 01/17/21 mcg (1,000 unit) tablet ferrous sulfate 325 mg (65 mg 325 mg PO DAILY #90 tab 01/27/20 01/17/21 iron) tablet sodium bicarbonate 650 mg tablet 650 mg PO TID #90 tab 01/27/20 01/17/21 vitamin B complex-vitamin C-folic 0.8 mg PO DAILY #90 tab 01/27/20 01/17/21 acid 0.8 mg tablet acetaminophen 325 mg tablet 650 mg PO Q4H PRN #30 tab 01/29/20 01/17/21 metoprolol succinate 25 mg 25 mg PO DAILY #30 tab 05/04/20 01/17/21 tablet,extended release 24 hr clonazepam 1 mg tablet 0.5 mg PO TID PRN #45 tab 06/13/20 01/17/21 mirtazapine 15 mg tablet 7.5 mg PO QHS #15 tab 08/23/20 01/17/21 sevelamer carbonate 800 mg tablet 800 mg PO TID 02/19/21 05/24/21 lidocaine 5 % topical patch 1 patch TOPICAL DAILY #30 ea 10/18/20 01/17/21 apixaban 2.5 mg tablet 2.5 mg PO BID #60 tab 11/15/20 01/17/21 aspirin 81 mg tablet,delayed 81 mg PO DAILY #90 tab 12/03/20 01/17/21 release atorvastatin 40 mg tablet 40 mg PO DAILY #90 tab 12/03/20 01/17/21 gabapentin 300 mg capsule 300 mg PO HS #30 cap 12/03/20 01/17/21 metoprolol succinate 100 mg 100 mg PO DAILY #90 tab 12/03/20 01/17/21 tablet,extended release 24 hr valsartan 80 mg tablet 80 mg PO DAILY #90 tab 12/07/20 01/17/21 amlodipine 5 mg tablet 10 mg PO DAILY #60 tab 01/14/21 01/17/21 venlafaxine 150 mg 150 mg PO DAILY #30 cap 01/14/21 01/17/21 capsule,extended release 24 hr Previous Rx's Medication Instructions Recorded calcitriol 0.25 mcg capsule 0.25 mcg PO DAILY #90 cap 01/27/20 calcium acetate(phosphat bind) 667 1,334 mg PO AC #180 cap 01/27/20 mg capsule cholecalciferol (vitamin D3) 25 1,000 unit PO DAILY #90 tab 01/27/20 mcg (1,000 unit) tablet ferrous sulfate 325 mg (65 mg 325 mg PO DAILY #90 tab 01/27/20 iron) tablet sodium bicarbonate 650 mg tablet 650 mg PO TID #90 tab 01/27/20 vitamin B complex-vitamin C-folic 0.8 mg PO DAILY #90 tab 01/27/20 acid 0.8 mg tablet acetaminophen 325 mg tablet 650 mg PO Q4H PRN #30 tab 01/29/20 metoprolol succinate 25 mg 25 mg PO DAILY #30 tab 05/04/20 tablet,extended release 24 hr clonazepam 1 mg tablet 0.5 mg PO TID PRN #45 tab 06/13/20 mirtazapine 15 mg tablet 7.5 mg PO QHS #15 tab 08/23/20 lidocaine 5 % topical patch 1 patch TOPICAL DAILY #30 ea 10/18/20 apixaban 2.5 mg tablet 2.5 mg PO BID #60 tab 11/15/20 aspirin 81 mg tablet,delayed 81 mg PO DAILY #90 tab 12/03/20 release atorvastatin 40 mg tablet 40 mg PO DAILY #90 tab 12/03/20 gabapentin 300 mg capsule 300 mg PO HS #30 cap 12/03/20 metoprolol succinate 100 mg 100 mg PO DAILY #90 tab 12/03/20 tablet,extended release 24 hr valsartan 80 mg tablet 80 mg PO DAILY #90 tab 12/07/20 amlodipine 5 mg tablet 10 mg PO DAILY #60 tab 01/14/21 venlafaxine 150 mg 150 mg PO DAILY #30 cap 01/14/21 capsule,extended release 24 hr Allergies Allergy/AdvReac Type Severity Reaction Status Date / Time oxycodone Allergy Skin Rash Unverified 01/17/21 13:14 topiramate [From Topamax] AdvReac Severe put me Unverified 01/17/21 13:14 out, couldn't wake me up tramadol AdvReac Itching Unverified 01/17/21 13:14 General Stated Complaint: GenMedical AMY: 3 Review of Systems <VERN Duarte - Last Filed: 01/18/21 08:23> Narrative: Review of systems obtained x7 aside from where indicated in HPI PFS <VERN Duarte - Last Filed: 01/18/21 08:23> Medical History Agoraphobia Anxiety Cerumen impaction Chronic anemia Chronic anemia Chronic pain 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, stage II Chronic ulcer of left foot Decubitus ulcer Decubitus ulcer of coccyx Depression (emotion) Elevated TSH ESRD (end stage renal disease) on dialysis Essential hypertension Hematuria Hypogonadism in male Neurogenic bladder No-show for appointment Paraplegia Suicidal ideation Testosterone deficiency Surgical History Colostomy Hip debridement, with bone resection s/p right hip remova for bony infection Spinal Fusion Family History Mother Depression Diabetes Father Cancer Heart disease Social History Smoking/Tobacco Use Status: Current-Occasional Tobacco Type: cigarettes Tobacco: How many years used: 20 Quit status: not considering quitting Second Hand Exposure: Yes Smoking risk assessment performed?: Yes Alcohol Intake: former Drug use: Never Substance use type: does not use Caregiver/Support person: Yes Household members: spouse and friend(s) Housing: house Do you need help understanding health information?: Often Pets and animals: Yes Pets and animals: cat(s) and dog(s) Sexually active: No Do you think of yourself as: straight/heterosexual Current gender identity: male What is your relationship status?: How often do you talk on the phone with friends or family?: never How often do you get together with friends or relatives?: never How often do you attend episcopalian or voodoo services?: decline to answer Do you belong to any clubs or organized social groups?: no Panel score (0-1 are the most socially isolated patients): 1 What type of physical activity do you participate in: wheelchair-bound Marcelle/Confucianism: Day Sabianist Special marcelle needs: No Seatbelt use: always Helmet use: No Drive intox or ride w/intox substitute bus driver: No Do you feel safe at home: Yes Do you feel safe in your relationship?: Yes Exam <VERN Duarte - Last Filed: 01/18/21 08:23> Const General: cooperative and frail appearing Orientation: alert and oriented x3 HENMT Face and sinus: No dry mucous membranes Eyes Pupils: PERRL Chest Other: Catheter in place, peritoneal Resp Effort & Inspection: normal respiratory effort Auscultation: clear to auscultation bilaterally Cardio Rate: regular rate Rhythm: regular rhythm GI Other: Colostomy in place, maroon-colored stool mixed with green discoloration, guaiac positive Back/Spine/Pelvis Other: Patient with numerous stage decubitus ulceration with malodorous drainage, no evidence of cellulitis Skin Other: pallor Neuro General: patient alert and patient oriented x3 Extrem Other: No edema noted bilaterally Course <VERN Duarte - Last Filed: 01/18/21 08:23> Vital Signs Vital signs: Vital Signs Temperature 37.1 C 01/17/21 12:20 Pulse 86 01/17/21 12:20 Respiratory Rate 24 01/17/21 12:20 Blood Pressure 126/69 01/17/21 12:20 Pulse Oximetry 98 01/17/21 12:20 Temperature 37.1 C 01/17/21 12:20 Temperature Source Tympanic 01/17/21 12:20 Pulse 86 01/17/21 12:20 Respiratory Rate 01/17/21 12:20 Respiratory Effort 01/17/21 13:02 Blood Pressure 126/69 01/17/21 12:20 Pulse Oximetry 98 01/17/21 12:20 Oxygen Delivery Method Room Air 01/17/21 12:20 Oxygen Flow Rate 0 01/17/21 12:20 Pain Level 4 01/17/21 12:20 Lab/Test Results Lab/Test Results: Laboratory Tests Range/Units 01/17/21 01/17/21 12:40 12:40 WBC (4.4-10.8) 10^3/uL 11.18 H RBC (4.36-5.78) 10^6/uL 2.88 L Hgb (13.5-17.5) g/dL 8.7 L Hct (40.0-50.0) % 26.5 L MCV (80-95) fL 92.0 MCH (27.0-33.0) pg 30.2 MCHC (32.0-36.0) % 32.8 RDW (11.8-14.1) % 14.8 H Plt Count (130-400) 10^3/uL 291 MPV (8.0-11.0) fL 9.4 Immature Gran % 0.4 Neutrophils % 65.6 Lymphocytes % 18.1 Monocytes % 10.6 Eosinophils % 4.8 Basophils % 0.5 Nucleated RBC % % 0 Absolute Neutrophils (1.2-6.7) 10^3/uL 7.33 H Absolute Lymphocytes (1.2-3.4) 10^3/uL 2.02 Absolute Monocytes (0.1-0.8) 10^3/uL 1.19 H Absolute Eosinophils (0.0-0.7) 10^3/uL 0.54 Absolute Basophils (0.0-0.2) 10^3/uL 0.06 PT (9.3-11.0) sec 13.2 H INR (0.9-1.1) 1.3 H Sign Out <VERN Duarte - Last Filed: 01/18/21 08:23> Sign Out Data: Sign Out Comment: pending [place] [facility] [facility] [place] Last updated by Brittany Champion PA at 01/17/21 16:38
[2021-01-17] MEDS: Pantoprazole 40 MG VIAL 80 MG IVP (13:11)
[2021-01-17 13:12] LABS: ALT 11 U/L (16-63); AST 20 U/L (15-37); Albumin 2.3 g/dL (3.4-5.0); Alkaline Phosphatase 132 U/L (46-116); Anion Gap 7.2 mmol/L (3-11); BUN 30 mg/dL (7-18); Bilirubin, Total 0.4 mg/dL (0.2-1.0); CO2 31.8 mmol/L (21.0-32.0); Chloride 96 mmol/L (98-107); Estimated GFR 7.48 (mL/min/1.73m2); Glucose 80 mg/dL (74-106); Potassium 3.9 mmol/L (3.5-5.1); Sodium 135 mmol/L (136-145)
[2021-01-17 13:14] LABS: CREATININE 7.5 mg/dL (0.70-1.30); Troponin I < 0.05 ng/mL (<0.06)
--- NOTE | 2021-01-17 14:31 | DI.RAD_ITS ---
Exam(s) XR PORTABLE CHEST AP EXAM: XR PORTABLE CHEST AP CLINICAL HISTORY: weakness, gi bleed. TECHNIQUE: 2D digital imaging was performed. COMPARISON: CR,XR XR PORTABLE CHEST AP from 12/13/2020 FINDINGS: Heart size is normal. The mediastinum is not widened. There are moderate-sized bilateral pleural effusions, approximately equal in size. Distal tip of the right supra clavi in dialysis catheter remains in the right atrium. There is less of a pulmonary edema pattern than previous there is no pneumothorax. Fusion hardware in the thoracolumbar spine is again noted. IMPRESSION: Moderate size symmetrical bilateral pleural effusions.Dialysis catheter. DATA REPOSITORY: RADIATION DOSE DELIVERED: All CT scans at this facility use at least one of these dose optimization techniques: automated exposure control; mA and/or kV adjustment per patient size (includes targeted e xams where dose is matched to clinical indication); or iterative reconstruction.
--- NOTE | 2021-01-17 16:00 | DI.CT_ITS ---
Exam(s) CT ABDOMEN PELVIS WO EXAM: CT ABDOMEN PELVIS WO CLINICAL HISTORY: ulceration with cloudy urine. TECHNIQUE: Imaging Protocol: Axial computed tomography images with coronal and sagittal reformatted images were created and reviewed. Oral: no COMPARISON: CT CT ABDOMEN PELVIS WO from 08/12/[address] CHEST PE CTA from 08/12/[address] ABDOMEN PELVIS WO from 08/12/2019 FINDINGS: The lung bases show bilateral pleural effusions and adjacent atelectasis, greater on the right. The liver, spleen, adrenals and pancreas are unremarkable. Small layering gallstones are noted. There i s no gallbladder wall thickening or pericholecystic fluid. A colostomy is noted in the midline abdom inal wall. There is no abnormal bowel distention or wall thickening. No free air or free fluid is s een. There is a small fatty containing Meme umbilical hernia. A suprapubic catheter is noted in the urinary bladder which is decompressed. Hardware is noted in the spine. There has been previous resection of the inferior sacrum. There is abnormal adjacent soft tissue thickening and decubitus ulcers. The decubitus ulcers appear worse whe n compared the previous exam. A large amount of fluid and soft tissue density material with calcific ations is again noted around the proximal right femur. A portion of the proximal femur has been resec kayla. There is adjacent deformity of the acetabulum. There are multiple enlarged inguinal and pelvic lymph nodes, consistent with reactive lymph nodes. IMPRESSION: Prior resection of the proximal femur as well as inferior sacrum. Chronic deformity of the right berkley tabulum. Increasing reactive adenopathy and posterior decubitus ulcers. RADIATION DOSE DELIVERED: 583.34mGy.cm Total DLP DATA REPOSITORY: All CT scans at this facility are submitted to the National Radiology Data Registry (NRDR) Dose Index Registry (DIR) with the [employer] ([employer]). RADIATION OPTIMIZATION: All CT scans at this facility use at least one of these dose optimization te chniques: automated exposure control; mA and/or kV adjustment per patient size (includes targeted exa ms where dose is matched to clinical indication); or iterative reconstruction.
[2021-01-17 16:03] LABS: Lactate 0.6 mmol/L (0.6-1.4)
[2021-01-17 16:04] LABS: HCT 26.4 % (40.0-50.0); HGB 8.6 g/dL (13.5-17.5)
[2021-01-17 16:58] LABS: Troponin I < 0.05 ng/mL (<0.06)
--- NOTE | 2021-01-17 17:56 | DI.VRAD_ITS ---
PROCEDURE INFORMATION: Exam: CT Abdomen And Pelvis Without Contrast Exam date and time: 01/17/2021 4:11 PM Age: 61 years old Clinical indication: Other: Ulceration, cloudy urine; Prior surgery; Patient HX: Ulceration with cloudy urine TECHNIQUE: Imaging protocol: Computed tomography of the abdomen and pelvis without contrast. COMPARISON: CT ABDOMEN PELVIS WO 08/12/2019 6:17 PM FINDINGS: Pleural spaces: Small to moderate-sized bilateral pleural effusions with adjacent atelectasis. Component of right lower lobe pneumonia cannot be excluded. Liver: Normal. No mass. Gallbladder and bile ducts: Multiple layering gallstones. No CT evidence cholecystitis. Pancreas: Normal. No ductal dilation. Spleen: Normal. No splenomegaly. Adrenal glands: Normal. No mass. Kidneys and ureters: Punctate nonobstructing left lower pole renal calculus. No hydronephrosis. No right renal calculus. Stomach and bowel: Stable appearance of the loop transverse colostomy in the midline abdominal wall. No bowel obstruction. No bowel obstruction or bowel wall thickening. Appendix: No evidence of appendicitis. Intraperitoneal space: Unremarkable. No free air. No significant fluid collection. Vasculature: Unremarkable. No abdominal aortic aneurysm. Lymph nodes: Interval increase in extensive reactive bilateral pelvic and inguinal lymph nodes. Urinary bladder: Suprapubic catheter with decompressed urinary bladder. Reproductive: Unremarkable as visualized. Bones/joints: Thoracolumbar fixation hardware. Increase in the extensive sacral decubitus ulcers and but stable postsurgical resection of the sacrum. Adjacent postoperative changes and right hip joint fluid collection with resection of the proximal femur is stable. Scattered heterotopic ossification within the right hip. Severe left hip joint space narrowing. Soft tissues: Bilateral gynecomastia. Left fat containing periumbilical hernia without evidence for bowel involvement. IMPRESSION: 1. Small to moderate bilateral pleural effusions with adjacent atelectasis. Superimposed right lower lobe pneumonia cannot be excluded. 2. Transverse colon loop colostomy without evidence for upstream bowel wall thickening or bowel obstruction. Normal caliber of both large and small bowel. 3. Suprapubic catheter within the decompressed urinary bladder, incompletely evaluable without contrast. 4. Overall increase in the extensive bilateral pelvic and inguinal lymphadenopathy. 5. Thoracolumbar spine fixation hardware. 6. Extensive postoperative changes with heterotopic ossification and prior debridement of the right hip with residual fluid and post surgical margin of the proximal right femur. In addition, there is extensive postoperative changes involving the sacrum from prior chronic osteomyelitis and multiple growing stable sacral decubitus ulcers. 7. Cholelithiasis. Dictated and Authenticated by: Monica Thomason MD. Ordering:SERJIO Soto MD
[2021-01-17 18:39] LABS: Bilirubin Small (Negative); Blood Large (Negative); Clarity Cloudy (Clear); Glucose Negative (Negative); Ketones Trace mg/dL (Negative); Leukocyte Esterase Moderate (Negative); Nitrite Positive (Negative); pH 8.5 (5-8)
[2021-01-17 18:44] LABS: Bacteria Many HPF (Negative); C & S Indicated? Yes; Casts 3-5 Hyaline LPF (Negative); Crystals Negative HPF (Negative); Epithelial Cells Few HPF (Negative); Mucus Moderate (Negative); RBC >50 HPF (0-2); WBC 20-50 HPF (0-5)
== END 2021-01-17 19:00 | disposition short-term general hospital (02) ==
PROVIDERS: Physician Assistant; Emergency Provider Physician Assistant; PCP Nurse Practitioner Family
DX: K92.2 Gastrointestinal hemorrhage, unspecified (principal)
CPT/HCPCS: 36415; 80053; 86850; 86900; 86901; 93005; 96374; 99285; 71045; 74176; 81003; 81015; 83605; 83735; 84484; 85014; 85018; 85025; 85610; 87086; 93010; 99284